=== PATIENT | female | born 1990 | race Caucasian/White ===

== ENCOUNTER 2023-10-27 22:23 | Emergency (ER) | payer OTHER, SELFPAY ==
[2023-10-27 22:32] VITALS: BP 125/80; PULSE 82; RESP 18; TEMP 37.2; O2SAT 96; BMI 56.5
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
--- NOTE | 2023-10-27 23:27 | CT_ITS ---
The [place] [id number] Patient Name: PABLO PEREZ MRN: [id number] date: 1990 Sex: F Assigned Patient Location: ER Current Patient Location: ER Accession/Order Number: [id number] Exam Date: 10/27/2023 23:38 Report Date: 10/28/2023 00:18 At the request of: MARIAM ALFARO Procedure: CT head/brain wo con NONCONTRAST CT SCAN OF THE HEAD HISTORY: Headache. TECHNIQUE: Multiple axial images are taken from the level the vertex down to the base of the skull without the use of IV contrast. Images were then reconstructed in the sagittal and coronal planes. This exam was performed according to our departmental dose-optimization program which includes use of Automated Exposure Control, adjustment of the mA and/or kV according to patient size and/or use of iterative reconstruction technique. COMPARISON: None. FINDINGS: Brain Parenchyma: No intracranial mass. No intracranial hemorrhage. Vázquez-white matter within expected limits of normal for patient's age. Posterior fossa: Normal. Midline shift: None Extra-axial fluid collection: None Ventricles: Normal. Mastoid air cells: Normal. Sinuses: Normal. Cranium: No depressed skull fracture. Soft tissues: Normal. Orbits: Normal. CT/CT head/brain wo con IMPRESSION: 1. No noncontrast CT evidence for acute intracranial pathology. 2. If patient continues to have symptoms or if there remains any further clinical concern, MRI may help better delineate if clinically indicated. Electronically authenticated by: VALDEMAR HINDS Date: 10/28/2023 00:18
--- NOTE | 2023-10-27 23:27 | CT_ITS ---
The [address] [address] Patient Name: PABLO PEREZ MRN: [id number] date: 1990 Sex: F Assigned Patient Location: ER Current Patient Location: ER Accession/Order Number: [id number] Exam Date: 10/27/2023 23:38 Report Date: 10/28/2023 00:04 At the request of: MARIAM ALFARO Procedure: CT cervical spine wo con EXAM: CT cervical spine wo con HISTORY: injury COMPARISON: None. TECHNIQUE: Axial images of the cervical spine were obtained. Sagittal and coronal reformations were provided. Dose reduction techniques were achieved by using automated exposure control and/or adjustment of mA and/or kV according to patient size and/or use of iterative reconstruction technique COMMENT: The lack of intradural contrast and streak artifact from bone about the vertebral column limit evaluation for disc protrusion, bulge and the spinal canal in general. FINDINGS: There is loss of the normal lordosis and straightening of the cervical vertebral column. No CT evidence of an acute fracture, subluxation or significant loss of vertebral body height. No significant loss of disc space, endplate osteophyte formation or malalignment at the craniocervical junction. While assessment of the spinal canal is again suboptimal on this noncontrast CT, no obvious disc protrusion, significant disc bulging or convincing region of high-grade spinal canal stenosis. The neural foramina appear patent. CT/CT cervical spine wo con IMPRESSION: 1. No CT evidence of an acute fracture involving the cervical vertebral column. 2. If there is further clinical indication to evaluate the spinal canal, cord or for ligamentous injury consider MRI as it would be more sensitive. Electronically authenticated by: JUAN C COYLE Date: 10/28/2023 00:04
== END 2023-10-28 01:00 | disposition home or self-care (01) ==
PROVIDERS: Emergency Provider Internal Medicine
DX: S06.0X0A Concussion without loss of consciousness, initial encounter (principal); V49.9XXA Car occupant (driver) (passenger) injured in unspecified traffic accident, initial encounter; Z79.899 Other long term (current) drug therapy; Z79.890 Hormone replacement therapy; Z87.891 Personal history of nicotine dependence
CPT/HCPCS: 70450; 72125; 99284

== ENCOUNTER 2023-11-23 21:36 | Emergency (ER) | payer OTHER, SELFPAY ==
[2023-11-23 21:40] VITALS: BP 128/86; PULSE 96; RESP 18; TEMP 36.8; O2SAT 98; BMI 62.4
--- OUTSIDE RECORDS SUMMARY | 2023-11-23 21:42 | XMS_ITS | CCD ---
Author Name Unknown Address [address] [facility] [address] [place] [id number] Organization [facility] Care Team Providers Care Health Care / Medical Job Titles Name Role Phone George Gomez Primary Care Provider Unavailjose GREEN, DR SHELLY Rae Primary Care Unavailable OLIVIA DEAN Attending Unavailable MELINA, DR LAY Consulting Unavailable OLIVIA DEAN Admitting Unavailable PETER, DR SHELLY Rae Primary Care Unavailable PAY, DR IRIZARRY Attending Unavailable PAY, DR IRIZARRY Admitting Unavailable KARL KUMAR Consulting Unavailable PETER, DR SHELLY Rae Primary Care Unavailable PETER, DR SHELLY Rae Consulting Unavailable PETER, DR SHELLY Rae Attending Unavailable PETER, DR SHELLY Rae Admitting Unavailable PETER, DR SHELLY Rae Primary Care Unavailable MARIAM ALFARO Attending Unavailable MARIAM ALFARO Admitting Unavailable MARIAM ALFARO Consulting Unavailable Kael Chan Attending Unavailable Kael Chan Attending Unavailable Unavailable Unavailable Unavailable Allergies Allergy Classification Reported Allergen(s) Allergy Type Date of Onset Reaction(s) Facility (1 source) traMADol Drug Allergy 0 [facility] Repository (1 source) No Known Medication Allergies; Translations: [No Known Medication Allergies] Propensity to adverse reactions (disorder) [facility] Repository Medications Current Medications Medication Drug Class(es) Dates Sig (Normalized) Sig (Original) amoxicillin 500 mg oral tablet (1 source) Penicillin-class Antibacterial Start: 10-25-2019 take 500 mg by mouth three times daily Amoxicillin Active 500 MG Oral Three times daily October 25, 2019 8:07pm buprenorphine 8 mg / naloxone 2 mg oral strip (1 source) Partial Opioid Agonist, Opioid Antagonist Start: 10-25-2019 Buprenorphine-Nalo xone Active 2 FILM Sublingual Daily October 25, 2019 7:49pm cobamamide 0.1 mg / vitamin b 12 5 mg sublingual tablet (1 source) Vitamin B12 Start: 10-25-2019 take 1 tablet under the tongue once daily Cyanocobalamin-Cob amamide Active 1 TAB Sublingual Daily October 25, 2019 7:49pm gabapentin 800 mg oral tablet (1 source) Anti-epileptic Agent Start: 10-25-2019 take 800 mg by mouth three times daily Gabapentin Active 800 MG Oral Three times daily October 25, 2019 7:49pm ibuprofen 800 mg oral tablet (1 source) Nonsteroidal Anti-inflammatory Drug Start: 10-25-2019 take 800 mg by mouth three times daily Ibuprofen Active 800 MG Oral Three times daily October 25, 2019 8:07pm levothyroxine sodium 0.1 mg oral tablet (1 source) l-Thyroxine Start: 10-25-2019 take 100 ug by mouth once daily Levothyroxine Active 100 MCG Oral Daily October 25, 2019 7:49pm meloxicam 15 mg oral tablet (1 source) Nonsteroidal Anti-inflammatory Drug Start: 10-25-2019 take 15 mg by mouth once daily Meloxicam Active 15 MG Oral Daily October 25, 2019 7:49pm 24 hr venlafaxine 75 mg extended release oral capsule (1 source) Serotonin and Norepinephrine Reuptake Inhibitor Start: 10-25-2019 take 75 mg by mouth once daily Venlafaxine Active 75 MG Oral Daily October 25, 2019 7:49pm Problems Active Problems Problem Classification Problem Date Documented Da te Episodic/Chronic Deficiency and other anemia (1 source) Other vitamin B12 deficiency anemias; Translations: [OT VITAMIN B12 DEFICIENCY ANEMIAS] Onset: 11-19-2022 Episodic Headache; including migraine (4 sources) Headache; including migraine; Translations: [HEADACHE UNSPECIFIED] Onset: 12-18-2021 Influenza (1 source) Influenza due to other identified influenza virus with unspecified type of pneumonia; Translations: [FLU D/T OT ID FLU VIR UNS TYPE PN] Onset: 11-19-2022 Episodic Other nervous system disorders (1 source) Hereditary and idiopathic neuropathy, unspecified; Translations: [HEREDITARY IDIOPATH NEUROPATHY UNS] Onset: 11-19-2022 Chronic Other nervous system disorders (1 source) Other chronic pain; Translations: [OTHER CHRONIC PAIN] Onset: 05-29-2022 Chronic Other nutritional; endocrine; and metabolic disorders (1 source) Morbid (severe) obesity due to excess calories; Translations: [MORBID SEVERE OBES D/T EXCESS ABY] Onset: 12-20-2021 Chronic Other nutritional; endocrine; and metabolic disorders (1 source) Body mass index (BMI) 50.0-59.9, adult; Translations: [BODY MASS INDEX BMI 50.0-59.9 ADULT] Onset: 12-20-2021 Chronic Thyroid disorders (5 sources) Hypothyroidism, unspecified; Translations: [HYPOTHYROIDISM UNSPECIFIED] Onset: 05-29-2022 Chronic Unclassified (4 sources) CONTACT W/AND (SUSP) EXPOS COVID-19; Translations: [CONTACT W/AND (SUSP) EXPOS COVID-19] Onset: 12-20-2021 Unclassified (1 source) PERSONAL HISTORY OF COVID-19; Translations: [PERSONAL HISTORY OF COVID-19] Onset: 06-05-2022 Viral infection (2 sources) COVID-19; Translations: [Disease caused by 2019-nCoV] Onset: 05-29-2022 Past or Other Problems Problem Classification Problem Date Documented Da te Episodic/Chronic Other aftercare (1 source) Other residential (current) drug therapy; Translations: [OTH DETENTION CURRENT DRUG THERAPY] Onset: 05-29-2022 Episodic Other non-traumatic joint disorders (1 source) Pain in right shoulder; Translations: [PAIN IN RIGHT SHOULDER] Onset: 12-20-2021 Episodic Other upper respiratory infections (4 sources) Acute pharyngitis, unspecified; Translations: [Acute upper respiratory infection, unspecified] Onset: 12-20-2021 Episodic Otitis media and related conditions (1 source) Otitis media; Translations: [Recurrent otitis media] Episodic Unclassified (1 source) CONTACT W/AND (SUSP) EXPOS COVID-19; Translations: [CONTACT W/AND (SUSP) EXPOS COVID-19] Onset: 06-01-2022 Results Test Name Value Interpretation Reference Range Facility [facility] 03-29-2023 Lab Reports [id number] AD#[id number]:[id number] Normal [facility] CBC AUTO DIFFon 11-17-2022 BASO # 0.1 103/ul Normal 0.0-0.1 [facility] Comment on above: Performed By: #### C BC #### [facility] [address] [place] [address] Dr. Detla Flynn Basophils/100 WBC (Bld) 1.1 % Normal 0.2-2.0 [facility] Comment on above: Performed By: #### C BC #### [facility] [address] [place] [address] Dr. Delta Flynn EO # 0.6 103/ul Normal 0.0-0.7 [facility] Comment on above: Performed By: #### C BC #### [facility] [address] [place] [address] Dr. Delta Flynn Eosinophils/100 WBC (Bld) 8.8 % Critically high 0.9-7.0 [facility] Comment on above: Performed By: #### C BC #### [facility] [address] [place] [address] Dr. Delta Flynn Erythrocyte distribution width (RBC) [Ratio] 14.0 % Normal 11.0-15.0 [facility] Comment on above: Performed By: #### C BC #### [facility] [address] [place] [address] Dr. Delta Flynn Hematocrit (Bld) [Volume fraction] 37.3 % Normal 36.0-48.0 [facility] Comment on above: Performed By: #### C BC #### [facility] [address] [place] [address] Dr. Delta Flynn Hemoglobin (Bld) [Mass/Vol] 13.1 g/dL Normal 12.0-16.0 [facility] Comment on above: Performed By: #### C BC #### [facility] [address] [place] [address] Dr. Delta Flynn IG # 0.01 10e3/ul Normal 0.00-0.03 [facility] Comment on above: Performed By: #### C BC #### [facility] [address] [place] [address] Dr. Delta Flynn IG % 0.1 % Normal 0.0-0.5 [facility] Comment on above: Performed By: #### C BC #### [facility] [address] [place] [address] Dr. Delta Flynn LYMPH # 2.9 103/ul Normal 1.2-3.8 [facility] Comment on above: Performed By: #### C BC #### [facility] [address] [place] [address] Dr. Delta Flynn Lymphocytes/100 WBC (Bld) 40.5 % Normal 20.5-60.0 [facility] Comment on above: Performed By: #### C BC #### [facility] [address] [place] [address] Dr. Delta Flynn MANUAL DIFF REQ NO Normal [facility] Comment on above: Performed By: #### C BC #### [facility] [address] [place] [address] Dr. Delta Flynn MCH (RBC) [Entitic mass] 27.4 pg Normal 26.7-34.0 [facility] Comment on above: Performed By: #### C BC #### [facility] [address] [place] [address] Dr. Delta Flynn MCHC (RBC) [Mass/Vol] 35.1 g/dL Normal 29.9-35.2 [facility] Comment on above: Performed By: #### C BC #### [facility] [address] [place] [address] Dr. Delta Flynn MCV (RBC) [Entitic vol] 78.0 fL Critically low 81.0-99.0 [facility] Comment on above: Performed By: #### C BC #### [facility] [address] [place] [address] Dr. Delta Flynn MONO # 0.5 103/ul Normal 0.3-0.8 [facility] Comment on above: Performed By: #### C BC #### [facility] [address] [place] [address] Dr. Delta Flynn Monocytes/100 WBC (Bld) 7.0 % Normal 1.7-12.0 [facility] Comment on above: Performed By: #### C BC #### [facility] [address] [place] [address] Dr. Delta Flynn NEUT # 3.0 103/ul Normal 1.4-6.5 [facility] Comment on above: Performed By: #### C BC #### [facility] [address] [place] [address] Dr. Delta Flynn Neutrophils/100 WBC (Bld) 42.5 % Critically low 43.0-75.0 [facility] Comment on above: Performed By: #### C BC #### [facility] [address] [place] [address] Dr. Delta Flynn Platelet mean volume (Bld) [Entitic vol] 8.8 fL Critically low 9.5-13.5 [facility] Comment on above: Performed By: #### C BC #### [facility] [address] [place] [address] Dr. Delta Flynn PLT 323 103/ul Normal 150-450 [facility] Comment on above: Performed By: #### C BC #### [facility] [address] [place] [address] Dr. Delta Flynn RBC 4.78 106/ul Normal 4.20-5.40 [facility] Comment on above: Performed By: #### C BC #### [facility] [address] [place] [address] Dr. Delta Flynn WBC 7.0 103/ul Normal 4.0-11.0 [facility] Comment on above: Performed By: #### C BC #### [facility] [address] [place] [address] Dr. Delta Flynn FREE T3on 11-17-2022 FREE T3 3.03 pg/mlL Normal 2.18-3.98 [facility] Comment on above: Performed By: #### T SH, FT3, CMP #### [facility] [address] [place] [address] Dr. Delta Flynn FREE T4on 11-17-2022 Free T4 [Mass/Vol] 1.27 ng/dL Normal 0.76-1.46 [facility] Comment on above: Performed By: #### F T4 #### [facility] [address] [place] [address] Dr. Delta Flynn PROF 14(COMP METB)on 023 Albumin [Mass/Vol] 3.3 g/dL Critically low 3.4-5.0 [facility] Comment on above: Performed By: #### T SAI, FT3, CMP #### [facility] [address] [address] [address] Dleta Flynn Albumin/Globulin [Mass ratio] 0.8 {ratio} Normal [facility] Comment on above: Performed By: #### T SAI, FT3, CMP #### [facility] [address] [address] [address] Delta Flynn ALP [Catalytic activity/Vol] 77 U/L Normal 46-116 [facility] Comment on above: Performed By: #### T SAI, FT3, CMP #### [facility] [address] [address] [address] Delta Flynn ALT [Catalytic activity/Vol] 35 U/L Normal 14-59 [facility] Comment on above: Performed By: #### T SAI, FT3, CMP #### [facility] [address] [address] [address] Delta Flynn Anion gap [Moles/Vol] 9.0 mmol/L Normal [facility] Comment on above: Performed By: #### T SAI, FT3, CMP #### [facility] [address] [place] [address] Dr. Delta Flynn AST [Catalytic activity/Vol] 29 U/L Normal 15-37 [facility] Comment on above: Performed By: #### T SAI, FT3, CMP #### [facility] [address] [address] [address] Delta Flynn Bilirubin [Mass/Vol] 0.4 mg/dL Normal 0.2-1.0 [facility] Comment on above: Performed By: #### T SAI, FT3, CMP #### [facility] [address] [address] [address] Delta Flynn Calcium [Mass/Vol] 9.0 mg/dL Normal 8.5-10.1 [facility] Comment on above: Performed By: #### T SH, FT3, CMP #### [facility] [address] [place] [address] Dr. Delta Flynn Chloride [Moles/Vol] 106 mmol/L Normal 98-107 [facility] Comment on above: Performed By: #### T SH, FT3, CMP #### [facility] [address] [place] [address] Dr. Delta Flynn CO2 [Moles/Vol] 31.8 mmol/L Normal 21.0-32.0 [facility] Comment on above: Performed By: #### T SH, FT3, CMP #### [facility] [address] [place] [address] Dr. Delta Flynn Creatinine [Mass/Vol] 0.62 mg/dL Normal 0.55-1.02 [facility] Comment on above: Performed By: #### T SH, FT3, CMP #### [facility] [address] [place] [address] Dr. Delta Flynn EGFR-AF PALESTINIAN 60 mL/min/1.73m2 Normal >=60 [facility] Comment on above: Performed By: #### T SH, FT3, CMP #### [facility] [address] [place] [address] Dr. Delta Flynn EGFR-NON AF PALESTINIAN 60 mL/min/1.73m2 Normal >=60 [facility] Comment on above: Performed By: #### T SH, FT3, CMP #### [facility] [address] [place] [address] Dr. Delta Flynn Globulin (S) [Mass/Vol] 4.0 g/dL Normal [facility] Comment on above: Performed By: #### T SH, FT3, CMP #### [facility] [address] [place] [address] Dr. Delta Flynn Glucose [Mass/Vol] 108 mg/dL Critically high 74-106 [facility] Comment on above: Performed By: #### T SH, FT3, CMP #### [facility] [address] [place] [address] Dr. Delta Flynn Potassium [Moles/Vol] 3.8 mmol/L Normal 3.5-5.1 [facility] Comment on above: Performed By: #### T SAI FT3, CMP #### [facility] [address] [place] [address] Dr. Delta Flynn Protein [Mass/Vol] 7.3 g/dL Normal 6.4-8.2 [facility] Comment on above: Performed By: #### T SAI, FT3, CMP #### [facility] [address] [place] [address] Dr. Delta Flynn Sodium [Moles/Vol] 143 mmol/L Normal 136-145 [facility] Comment on above: Performed By: #### T SAI FT3, CMP #### [facility] [address] [place] [address] Dr. Delta Flynn Urea nitrogen [Mass/Vol] 10.0 mg/dL Normal 7.0-18.0 [facility] Comment on above: Performed By: #### T SAI FT3, CMP #### [facility] [address] [place] [address] Dr. Delta Flynn Urea nitrogen/Creatinin e [Mass ratio] 16.1 mg/mg Normal [facility] Comment on above: Performed By: #### T SAI FT3, CMP #### [facility] [address] [place] [address] Dr. Delta Flynn TSHon 11-17-2022 TSH 1.120 uIU/mL Normal 0.358-3.740 [facility] Comment on above: Performed By: #### T SAI, FT3, CMP #### [facility] [address] [place] [address] Dr. Delta Flynn [facility] 05-15 SARS-CoV-2 (COVID-19) RNA SIMBA+probe Ql (Unsp spec) Not detected Normal NOT DETECTED [facility] Comment on above: Result Comment: When diagnostic testing is negative, the possibility of a false negative should be considered in the context of a patient's recent exposures and the presence of clinical signs and symptoms consistent with SARS-CoV-2. This test is not yet approved or cleared by the [place] FDA. When there are no FDA-approved or cleared tests available, and other criteria are met, FDA can make tests available under an emergency access mechanism called an Emergency Use Authorization (EUA). The EUA for this test is supported by the [place] of Health and Human Service's declaration that circumstances exist to justify the emergency use of in vitro diagnostics for the detection and/or diagnosis of the virus that causes COVID-19. This EUA will remain in effect for the duration of the COVID-19 declaration justifying emergency of IVDs, unless it is terminated or revoked by the FDA (after which the test may no longer be used). Performed By: #### C VDTB #### [facility] [address] [place] [address] Dr. Delta Flynn Covid-19 PCR ([facility])on 05-15 SARS-CoV-2 (COVID-19) RNA SIMBA+probe Ql (Unsp spec) Detected Critically abnormal NOT DETECTED [facility] Comment on above: Result Comment: This test is not yet approved or cleared by the [place] FDA. When there are no FDA-approved or cleared tests available, and other criteria are met, FDA can make tests available under an emergency access mechanism called an Emergency Use Authorization (EUA). The EUA for this test is supported by the [place] Health and Human Service's declaration that circumstances exist to justify the emergency use of in vitro diagnostics for the detection and/or diagnosis of the virus that causes COVID-19. This EUA will remain in effect for the duration of the COVID-19 declaration justifying emergency of IVDs, unless it is terminated or revoked by the FDA (after which the test may no longer be used). Performed By: #### C VDTBH #### [facility] [address] [place] [address] Dr. Delta Flynn Covid-19 PCR ([facility])on SARS-CoV-2 (COVID-19) RNA SIMBA+probe Ql (Unsp spec) Not detected Normal NOT DETECTED [facility] Comment on above: Result Comment: When diagnostic testing is negative, the possibility of a false negative should be considered in the context of a patient's recent exposures and the presence of clinical signs and symptoms consistent with SARS-CoV-2. This test is not yet approved or cleared by the [place] FDA. When there are no FDA-approved or cleared tests available, and other criteria are met, FDA can make tests available under an emergency access mechanism called an Emergency Use Authorization (EUA). The EUA for this test is supported by the [place] Health and Human Service's declaration that circumstances exist to justify the emergency use of in vitro diagnostics for the detection and/or diagnosis of the virus that causes COVID-19. This EUA will remain in effect for the duration of the COVID-19 declaration justifying emergency of IVDs, unless it is terminated or revoked by the FDA (after which the test may no longer be used). Performed By: #### C VDTB #### [facility] [address] [place] [address] Dr. Delta Flynn INFLUENZA A AND B AGon 12-18 [facility] SEE BELOW Normal [facility] Comment on above: Result Comment: Nega tive for Flu A protein angiten. Infection due to Flu A cannot be ruled out. Flu A angiten in the sample may be below the detection limit of the test. Performed By: #### I NFLUAB #### [facility] [address] [place] [address] Dr. [facility] Normal [facility] Comment on above: Result Comment: Nega tive for Flu B protein antigen. Infection due to Flu B cannot be ruled out. Flu B antigen in the sample may be below the detection limit of the test. Performed By: #### I NFLUAB #### [facility] [address] [place] [address] Dr. Delta Flynn INFLUENZA A AG Negative Normal NEGATIVE SEE COMMENT [facility] Comment on above: Performed By: #### I NFLUAB #### [facility] [address] [place] [address] Dr. Delta Flynn INFLUENZA B AG Negative Normal NEGATIVE SEE COMMENT [facility] Comment on above: Performed By: #### I NFLUAB #### [facility] [address] [place] [address] Dr. Delta Flynn INTERNAL CONTROLS Within Normal Limits Normal Within Normal Limits [facility] Comment on above: Performed By: #### I NFLUAB #### [facility] [address] [address] [address] Delta Flynn CNOVon 08-08-2021 CNOV Office Visit (GSPSMN) ---- PABLO PEREZ ([id number]) 1990 F Date Time Provider Department 08/08/21 9:00 AM GILA LOPEZ GSPS[facility] During your visit today, we recorded the following information about you: Gila Lopez PSYD 08/08/2021 9:30 AM Signed [facility] Progress Note 08/08/2021 Billing code: John Patient did not attend, cancel, or reschedule this in person appointment. Gila Lopez Psy.D. Clinical Health Psychologist Referring Provider: GEORGE GOMEZ [[id number]] Allergies As of Date: 08/08/2021 (Not on File) Date Reviewed: 08/08/2021 Reviewed by: Gila Lopez PSYD - Fully Assessed Reason for Visit: No Show [[id number]] Primary Visit Diagnosis:NO SHOW Problem List As Of Date: 08/08/2021 (None) Encounter Status:Closed by GILA LOPEZ on 08/08/21 Normal [facility] Vital Signs Date Time Vital Sign Value Performing Clinician Faci lity 10-25-2019 19:57-0500 BMI (Body Mass Index) 57.9 kg/m2 [facility] 10-25-2019 19:57-0500 Body Temperature 98.1 [degF] [facility] 10-25-2019 19:57-0500 Body weight 157.85 kg [facility] 10-25-2019 19:57-0500 BP Diastolic 90 mm[Hg] [facility] 10-25-2019 19:57-0500 BP Systolic 144 mm[Hg] [facility] 10-25-2019 19:57-0500 Height 165.1 cm [facility] 10-25-2019 19:57-0500 Pulse (Heart Rate) 101 /min [facility] 10-25-2019 19:57-0500 Pulse Oximetry 93 % [facility] 10-25-2019 19:57-0500 Respiratory Rate 24 /min [facility] Encounters Encounter Date Encounter Type Care Provider Facility Start: 04-02-2023 End: 04-03-2023 ambulatory Kael Chan Facility:[facility] Rosaura chacon Start: 02-26-2023 End: 02-27-2023 ambulatory Kael Chan Facility:[facility] Rosaura chacon Start: 11-17-2022 End: 11-18-[address] SHELLY GREEN Facility:[facility] Start: 06-01-2022 End: 06-02-[address] SHELLY GEREN Facility:[facility] Start: 05-27-2022 End: 05-27-[address] SHELLY GREEN Facility:[facility] Start: 12-18-2021 End: 12-18-[address] SHELLY GREEN Facility:[facility] Start: 10-25-2019 End: 10-25-2019 Emergency department patient visit [facility] Plan of Treatment Date Care Activity Detail Author Patient Education Otitis Media (ED) [facility] Patient referral [facility] Payers Date Payer Category Payer Unknown [id number] 2.16.84 [id number] 1990 Unknown [id number] 2.16.84 [id number] 1990 Unknown [id number] 2.16.84 [id number] 1990 Unknown [id number] 2.16.84 [id number] 1990 Unknown [id number] 2.16.8 [id number] 1990 Unknown [id number] 2.16.8 [id number] 1960 Unknown [id number] Self-pay Self Pay [id number] Social History Date Type Detail Facility Start: 10-25-2019 Tobacco smoking stat us [facility] Never smoked tobacco (finding) [facility] Start: 1990 Sex Assigned At Female [facility] Goals Date Patient Goal Desired Activity /State Progress note 08-08-2021 Note Date & Type Note Facility 08-08-2021 Note HNO ID: [id number] Author: China Clark RD Service: ? Author Type: Registered Dietitian Type: Progress Notes Filed: 08/08/2021 1:04 PM Note Text: Patient did not show for nutrition appointment. China Clark MS, RD,GILES RIOJAS [facility] Clinical Note 08-08-2021 Note Date & Type Note Facility 08-08-2021 Note Education (AMANDA) PABLO PEREZ ([id number]) 1990 F Date Time Provider Department 08/08/21 12:30 PM CHINA CLARK Reason for Visit: No Show [1558] Progress Notes: China Clark RD 08/08/2021 1:04 PM Signed Patient did not show for nutrition appointment. China A. Czerwony MS,RD,CSOWM,LD Primary Visit Diagnosis:NO SHOW During your visit today, we recorded the following information about you: Allergies As of Date: 08/08/2021 (Not on File) Date Reviewed: 08/08/2021 Reviewed by: Gila Lopez PSYD - Fully Assessed Prescriptions as of 08/08/2021 - SUBOXONE 8-2 mg film DISSOLVE 1 AND 1/2 films UNDER THE TONGUE EVERY DAY (DISSOLVE slowly, do not chew) - ciprofloxacin HCl (CIPRO) 500 mg tablet Take 500 mg by mouth q 12 HR. - gabapentin (NEURONTIN) 800 mg tablet TAKE 1 TABLET BY MOUTH TWICE DAILY AND TAKE 2 TABLETS AT BEDTIME - hydroCHLOROthiazide (HYDRODIURIL, ESIDRIX) 25 mg tablet Take 25 mg by mouth once daily. - levothyroxine (SYNTHROID) 100 mcg tablet - meloxicam (MOBIC) 15 mg tablet Take 15 mg by mouth once daily. - ondansetron (ZOFRAN) 4 mg tablet Take 8 mg by mouth twice daily. - sulfamethoxazole-trimethoprim (BACTRIM DS,SEPTRA DS) 800-160 mg per tablet Take 1 tablet by mouth q 12 HR. - venlafaxine ER (EFFEXOR XR) 75 mg 24 hr capsule Encounter Status:Closed by CHINA CLARK on 08/08/21 [facility] Progress note 08-08-2021 Note Date & Type Note Facility 08-08-2021 Note HNO ID: [id number] Author: Gila Lopez PSYD Service: ? Author Type: Physician Type: Progress Notes Filed: 08/08/2021 9:30 AM Note Text: [facility] Progress Note 08/08/2021 Billing code: John Patient did not attend, cancel, or reschedule this in person appointment. Gila Lopez Psy.D. Clinical Health Psychologist [facility] Advance Directives No Advanced Directives Records Found Advance Directive Response Recorded Date/ Time Advance Directives No April 15 9 2:41pm Chief Complaint and Reason for Visit Chief Complaint pain both ear; hack ing up green stuff Assessments No Assessments Information Available Summary Purpose Family History No Family History Records FoundNo Family History Records FoundNo Family History Records Found Additional Source Comments INFORMATION SOURCE (unrecogn ized section and content) DATE CREATED AUTHOR 11/21/2021 [facility] DATE CREATED AUTHOR AUTHOR'S ORGANIZ ATION 11/19/2022 [facility] DATE CREATED AUTHOR AUTHOR'S ORGANIZ ATION 04/03/2023 [facility] FOR RECORDS PERTAINING TO PATIENTS WHO ARE OR HAVE BEEN ENROLLED IN A CHEMICAL DEPENDENCY/SUBSTANCEABUSE PROGRAM, SOME INFORMATION MAY BE OMITTED. This clinical summary was aggregated from multiple sources. Caution should be exercised in using it in the provision of clinical care. This summary normalizes information from multiple sources, and as a consequence, information in this document may materially change the coding, format and clinical context of patient data. In addition, data may be omitted in some cases. CLINICAL DECISIONS SHOULD BE BASED ON THE PRIMARY CLINICAL RECORDS. [facility] [employer] provides no warranty or guarantee of the accuracy or completeness of information in this document.
--- NOTE | 2023-11-23 21:55 | ED.GENADUL1 ---
HPI - General Adult General Chief complaint: Recheck/Abnormal Lab/Rx Stated complaint: Medication Refill Time Seen by Provider: 11/23/23 21:44 Source: patient Mode of arrival: walk-in History of Present Illness HPI narrative: 33-year-old female presented because she ran out of her hydrochlorothiazide and gabapentin. She ran out of these 2 days ago. Her family doctor retired and she does not have a new one yet. No fever vomiting or complaints of chest pain. Related Data Home Medications Medication Instructions Recorded Confirmed buprenorphine 8 mg-naloxone 2 mg 1 film buccal TID 10/27/23 10/27/23 sublingual film cyanocobalamin (vitamin B-12) 2,500 mcg PO DAILY 10/27/23 10/27/23 2,500 mcg sublingual tablet gabapentin 800 mg tablet 800 mg PO Q12H 10/27/23 10/27/23 hydrochlorothiazide 25 mg tablet 25 mg PO DAILY 10/27/23 10/27/23 levothyroxine 100 mcg tablet 100 mcg PO DAILY 10/27/23 10/27/23 meloxicam 15 mg tablet 15 mg PO DAILY 10/27/23 10/27/23 venlafaxine 75 mg capsule,extended 75 mg PO DAILY 10/27/23 10/27/23 release 24 hr Previous Rx's Medication Instructions Recorded gabapentin 800 mg tablet 800 mg PO BID 5 days #10 tabs 11/23/23 hydrochlorothiazide 25 mg tablet 25 mg PO DAILY #30 tabs 11/23/23 Allergies Allergy/AdvReac Type Severity Reaction Status Date / Time No Known Drug Allergies Allergy Verified 10/27/23 22:42 Review of Systems ROS Narrative A ten point review of systems is negative except as noted above. PFSH PFSH Social History Smoking status: Former smoker Exam Narrative Exam Narrative: Nurses note and vital signs reviewed and patient is not hypoxic. General: The patient appears well and in no apparent distress. Patient is resting comfortably on cart. Skin: Warm, dry, no pallor noted. There is no rash noted. Head: Normocephalic, atraumatic Eye: Normal conjunctiva, no drainage Ears, Nose, Mouth, and Throat: oral mucosa is moist. Nares patent. Cardiovascular: Regular Rate and Rhythm Respiratory: Patient is in no distress, no accessory muscle use, lungs are clear to auscultation, no wheezing, rales or rhonchi Back: non-tender GI: Obese and nontender Musculoskeletal: The patient has no evidence of calf tenderness, no pitting edema, symmetrical pulses noted bilaterally Neurological: A&O, normal speech Psychiatric: Cooperative Constitutional Vital Signs, click to edit/add: Last Vital Signs Temp 98.3 F 11/23/23 21:40 Pulse 96 H 11/23/23 21:40 Resp 18 11/23/23 21:40 BP 128/86 11/23/23 21:40 Pulse Ox 98 11/23/23 21:40 O2 Del Method Room Air 11/23/23 21:40 Course Vital Signs Vital signs: Vital Signs Temperature 98.3 F 11/23/23 21:40 Pulse Rate 96 H 11/23/23 21:40 Respiratory Rate 18 11/23/23 21:40 Blood Pressure 128/86 11/23/23 21:40 Pulse Oximetry 98 11/23/23 21:40 Oxygen Delivery Method Room Air 11/23/23 21:40 Temperature 98.3 F 11/23/23 21:40 Pulse Rate 96 H 11/23/23 21:40 Respiratory Rate 18 11/23/23 21:40 Blood Pressure 128/86 11/23/23 21:40 Pulse Oximetry 98 11/23/23 21:40 Oxygen Delivery Method Room Air 11/23/23 21:40 Medical Decision Making MDM Narrative Medical decision making narrative: She was given a 30-day prescription for her hydrochlorothiazide and 5-day prescription for gabapentin and was given a list of family doctors with whom she can follow-up. Differential Diagnosis Differential Diagnosis: Medication refill Medical Records Medical records reviewed: Yes I reviewed the patient's medical records Discharge Plan Discharge Chief Complaint: Recheck/Abnormal Lab/Rx Clinical Impression: Encounter for medication refill Patient Disposition: Home, Self-Care Time of Disposition Decision: 21:50 Condition: Good Mode of Transportation: Private Vehicle Prescriptions / Home Meds: New hydrochlorothiazide 25 mg tablet 25 mg PO DAILY Qty: 30 0RF gabapentin 800 mg tablet 800 mg PO BID 5 Days Qty: 10 0RF No Action buprenorphine-naloxone 8-2 mg film 1 film buccal TID gabapentin 800 mg tablet 800 mg PO Q12H venlafaxine 75 mg capsule,extended release 24hr 75 mg PO DAILY cyanocobalamin (vitamin B-12) 2,500 mcg tablet, sublingual 2,500 mcg PO DAILY meloxicam 15 mg tablet 15 mg PO DAILY levothyroxine 100 mcg tablet 100 mcg PO DAILY hydrochlorothiazide 25 mg tablet 25 mg PO DAILY Instructions: Medicine Refill (ED) Stand Alone Forms: Portal Instructions Referrals: Physician,Non-Staff, MD [Primary Care Provider] - 1 week
[2023-11-23 22:03] VITALS: BP 128/86
[2023-11-23] MEDS: HYDROCHLOROTHIAZIDE 25 MG TABLET PO (22:03)
== END 2023-11-23 22:06 | disposition home or self-care (01) ==
PROVIDERS: Emergency Provider Emergency Medicine
DX: Z76.0 Encounter for issue of repeat prescription (principal); Z87.891 Personal history of nicotine dependence; Z79.899 Other long term (current) drug therapy
CPT/HCPCS: 99283

== ENCOUNTER 2024-01-31 14:42 | Emergency (ER) | payer OTHER, SELFPAY ==
[2024-01-31 14:48] VITALS: BP 120/82; PULSE 99; TEMP 36.8; O2SAT 98; BMI 44.1
--- NOTE | 2024-01-31 15:05 | US_ITS ---
The [address] [address] Patient Name: PABLO PEREZ MRN: [id number] date: 1990 Sex: F Assigned Patient Location: ER Current Patient Location: ER Accession/Order Number: [id number] Exam Date: 01/31/2024 15:25 Report Date: 01/31/2024 16:06 At the request of: ROSALINE KUMAR Procedure: US venous doppler LE BI EXAMINATION: US venous doppler LE BI HISTORY: Pain and swelling to bilateral knees COMPARISON: No relevant comparison available. FINDINGS: REGION: Bilateral lower extremities THROMBI: None. COMPRESSIBILITY: Normal compressibility. FLOW: Normal waveform and antegrade flow between 5 and 20 cm/s. OTHER: None. US/US venous doppler LE BI IMPRESSION: 1. No deep vein thrombus within the right or left lower extremity. Electronically authenticated by: YEFRI COLINDRES Date: 01/31/2024 16:06
--- NOTE | 2024-01-31 15:06 | ED.EXTPRO1 ---
HPI - Extremity Problem General Chief complaint: Extremity Problem, Nontraumatic Stated complaint: LOWER EXTREMITY PAIN Time Seen by Provider: 01/31/24 14:47 Source: patient Mode of arrival: Wheelchair Limitations: no limitations History of Present Illness HPI Narrative: Patient is a 33-year-old female with a history of peripheral neuropathy, morbid obesity who presents to the ER for increasing pain and burning to the bilateral feet, she states her feet feel swollen from the feet to the knees bilaterally. She denies any falls or injuries. She takes gabapentin and Suboxone at home for her peripheral neuropathy. She states the pain increases with walking and she has been working on her feet a lot more recently. She is not concerned for . There has not been any noted redness, wounds or drainage. Related Data Home Medications ?Medication ?Instructions ?Recorded ?Confirmed buprenorphine 8 mg-naloxone 2 mg 1 film buccal TID 10/27/23 01/31/24 sublingual film cyanocobalamin (vitamin B-12) 2,500 mcg PO DAILY 10/27/23 01/31/24 2,500 mcg sublingual tablet gabapentin 800 mg tablet 800 mg PO Q12H 10/27/23 01/31/24 levothyroxine 100 mcg tablet 100 mcg PO DAILY 10/27/23 01/31/24 venlafaxine 75 mg tablet 75 mg PO DAILY 01/31/24 01/31/24 Previous Rx's ?Medication ?Instructions ?Recorded gabapentin 800 mg tablet 800 mg PO BID 5 days #10 tabs 11/23/23 hydrochlorothiazide 25 mg tablet 25 mg PO DAILY #30 tabs 11/23/23 ketorolac 10 mg tablet 10 mg PO TID PRN pain #10 tabs 01/31/24 methocarbamol 750 mg tablet 750 mg PO TID PRN pain #20 tabs 01/31/24 Allergies Allergy/AdvReac Type Severity Reaction Status Date / Time No Known Drug Allergies Allergy Verified 10/27/23 22:42 Review of Systems ROS Constitutional Denies: fever or chills Ears, nose, mouth, and throat Denies: throat pain or nasal congestion Respiratory Denies: shortness of breath Gastrointestinal Denies: nausea or vomiting Musculoskeletal Reports: extremity pain; Denies: back pain Integumentary/Breast Denies: rash Neurological Denies: headache or numbness in extremities Hematologic/Lymphatic Denies: easy bruising or easy bleeding PFSH PFSH Social History Smoking status: Former smoker Exam Narrative Exam Narrative: Gen.: Awake, alert, in no distress Head: Normocephalic, atraumatic ENT: Moist mucous membranes Respiratory: No respiratory distress Extremities: Patient observed ambulating from the bathroom with no limp or difficulty. Diffuse tenderness of the bilateral feet with no appreciable swelling, redness or drainage. Bilateral calves are obese, no pitting edema noted. No redness or firmness of the calves. Psych: Normal mood and affect Neuro: No focal neuro deficit Skin: Warm, dry, intact Constitutional Vital Signs, click to edit/add: Last Vital Signs Temp 98.2 F 01/31/24 14:48 Pulse 99 H 01/31/24 14:48 Resp 18 01/31/24 14:48 BP 120/82 01/31/24 14:48 Pulse Ox 98 01/31/24 14:48 O2 Del Method Room Air 01/31/24 14:48 Course Vital Signs Vital signs: Vital Signs Temperature 98.2 F 01/31/24 14:48 Pulse Rate 99 H 01/31/24 14:48 Respiratory Rate 18 01/31/24 14:48 Blood Pressure 120/82 01/31/24 14:48 Pulse Oximetry 98 01/31/24 14:48 Oxygen Delivery Method Room Air 01/31/24 14:48 Temperature 98.2 F 01/31/24 14:48 Pulse Rate 99 H 01/31/24 14:48 Respiratory Rate 18 01/31/24 14:48 Blood Pressure 120/82 01/31/24 14:48 Pulse Oximetry 98 01/31/24 14:48 Oxygen Delivery Method Room Air 01/31/24 14:48 MDM - Extremity (Nontraumatic) MDM Narrative Medical decision making narrative: Lab studies are unremarkable, CRP and sed rates are mildly elevated with no leukocytosis or abnormal electrolytes. Ultrasound of the bilateral lower extremities is unremarkable and the patient is started on Toradol and Robaxin for home. Elevate the legs, follow-up with PCP for further evaluation and treatment and return to the ER if symptoms change or worsen.At this time, the patient has no redness, wounds or evidence of infection to the lower extremities. Medical Records Attestation: I reviewed the patient's medical records. Lab Data Attestation: I reviewed the patient's lab results. Labs: Lab Results 01/31/24 Range/Units 15:20 WBC 7.6 (4.0-11.0) 10^3/uL RBC 4.57 (4.20-5.40) 10^6/uL Hgb 12.9 (12.0-16.0) g/dL Hct 40.6 (36.0-48.0) % MCV 88.8 (81.0-99.0) fL MCH 28.2 (26.7-34.0) pg MCHC 31.8 (29.9-35.2) g/dL RDW 14.4 (11.0-15.0) % Plt Count 348 (150-450) 10^3/uL MPV 9.4 L (9.5-13.5) fL Neut % (Auto) 64.5 (43.0-75.0) % Lymph % (Auto) 25.2 (20.5-60.0) % [place] % (Auto) 6.9 (1.7-12.0) % Eos % (Auto) 2.2 (0.9-7.0) % Baso % (Auto) 0.9 (0.2-2.0) % Neut # (Auto) 4.9 (1.4-6.5) 10^3/uL Lymph # (Auto) 1.9 (1.2-3.8) 10^3/uL [place] # (Auto) 0.5 (0.3-0.8) 10^3/uL Eos # (Auto) 0.2 (0.0-0.7) 10^3/uL Baso # (Auto) 0.1 (0.0-0.1) 10^3/uL Abs Immat Gran (auto) 0.02 (0.00-0.03) 10^3/uL Imm/Tot Granulo (auto) 0.3 (0.0-0.5) % ESR 49 H (<=20) mm/hr Sodium 142 (136-145) mmol/L Potassium 3.6 (3.5-5.1) mmol/L Chloride 104 (98-107) mmol/L Carbon Dioxide 32.0 (21.0-32.0) mmol/L Anion Gap 9.6 BUN 7.0 (7.0-18.0) mg/dL Creatinine 0.66 (0.55-1.02) mg/dL Est GFR ( Amer) >60 (>=60) Est GFR (Non-Af Amer) >60 (>=60) BUN/Creatinine Ratio 10.6 Glucose 114 H (74-106) mg/dL Calcium 9.1 (8.5-10.1) mg/dL C-Reactive Protein 2.90 H (<=0.50) mg/dL Serum HCG, Qual Negative (NEGATIVE) Imaging Data Venous US: Attestation: I have reviewed the pertinent imaging results. Radiologist's impression: ITS Impressions Venous Doppler Study 01/31/24 15:05 IMPRESSION: 1. No deep vein thrombus within the right or left lower extremity. Electronically authenticated by: YEFRI COLINDRES Date: 01/31/2024 16:06 Discharge Plan Discharge Stand Alone Forms: Portal Instructions Chief Complaint: Extremity Problem, Nontraumatic Clinical Impression: Peripheral neuropathy Patient Disposition: Home, Self-Care Time of Disposition Decision: 16:16 Condition: Good Prescriptions / Home Meds: New ketorolac 10 mg tablet 10 mg PO TID PRN (Reason: pain) Qty: 10 0RF methocarbamol 750 mg tablet 750 mg PO TID PRN (Reason: pain) Qty: 20 0RF No Action buprenorphine-naloxone 8-2 mg film 1 film buccal TID gabapentin 800 mg tablet 800 mg PO Q12H cyanocobalamin (vitamin B-12) 2,500 mcg tablet, sublingual 2,500 mcg PO DAILY levothyroxine 100 mcg tablet 100 mcg PO DAILY hydrochlorothiazide 25 mg tablet 25 mg PO DAILY Qty: 30 0RF gabapentin 800 mg tablet 800 mg PO BID 5 Days Qty: 10 0RF venlafaxine 75 mg tablet 75 mg PO DAILY Print Language: Citizen [place] Instructions: Peripheral Neuropathy (ED) Referrals: Physician,Non-Staff, MD [Primary Care Provider] - 1 week Discharge Date/Time: 01/31/24 16:36
[2024-01-31 15:31] LABS: Basophils Absolute Auto 0.1 10^3/uL (0.0-0.1); Basophils Percent Auto 0.9 % (0.2-2.0); Eosinophils Absolute Auto 0.2 10^3/uL (0.0-0.7); Eosinophils Percent Auto 2.2 % (0.9-7.0); Hematocrit 40.6 % (36.0-48.0); Hemoglobin 12.9 g/dL (12.0-16.0); Immature Granulocytes Abs Auto 0.02 10^3/uL (0.00-0.03); Immature Granulocytes Pct Auto 0.3 % (0.0-0.5); Lymphocytes Absolute Auto 1.9 10^3/uL (1.2-3.8); Lymphocytes Percent Auto 25.2 % (20.5-60.0); Mean Corpuscular HGB Conc 31.8 g/dL (29.9-35.2); Mean Corpuscular Hemoglobin 28.2 pg (26.7-34.0); Mean Corpuscular Volume 88.8 fL (81.0-99.0); Mean Platelet Volume 9.4 fL (9.5-13.5); Monocytes Absolute Auto 0.5 10^3/uL (0.3-0.8); Monocytes Percent Auto 6.9 % (1.7-12.0); Neutrophils Absolute Auto 4.9 10^3/uL (1.4-6.5); Neutrophils Percent Auto 64.5 % (43.0-75.0); Platelet Count 348 10^3/uL (150-450); Red Blood Count 4.57 10^6/uL (4.20-5.40); Red Cell Distribution Width 14.4 % (11.0-15.0); White Blood Count 7.6 10^3/uL (4.0-11.0)
[2024-01-31 15:39] LABS: Erythrocyte Sedimentation Rate 49 mm/hr (<=20)
[2024-01-31 15:42] LABS: Anion Gap 9.6; BUN Creatinine Ratio 10.6; Calcium 9.1 mg/dL (8.5-10.1); Chloride 104 mmol/L (98-107); Estimated GFR (African America >60 (>=60); Estimated GFR (Non-African Ame >60 (>=60); Glucose 114 mg/dL (74-106); Potassium 3.6 mmol/L (3.5-5.1); Sodium 142 mmol/L (136-145)
[2024-01-31 16:12] LABS: HCG Qualitative NEGATIVE (NEGATIVE)
[2024-01-31] MEDS: KETOROLAC TROMETHAMINE 10 MG TABLET PO (16:24)
== END 2024-01-31 16:36 | disposition home or self-care (01) ==
PROVIDERS: Physician Assistant; Emergency Provider Emergency Medicine
DX: G62.9 Polyneuropathy, unspecified (principal); E66.01 Morbid (severe) obesity due to excess calories; Z79.899 Other long term (current) drug therapy; Z79.890 Hormone replacement therapy; Z87.891 Personal history of nicotine dependence; Z68.41 Body mass index [BMI] 40.0-44.9, adult
CPT/HCPCS: 36415; 80048; 84703; 85025; 85652; 86140; 93970; 99284

== ENCOUNTER 2024-08-26 01:04 | Emergency (ER) | payer OTHER, SELFPAY ==
[2024-08-26 01:08] VITALS: BP 155/94; PULSE 98; TEMP 37.3; O2SAT 96; BMI 54.8
--- OUTSIDE RECORDS SUMMARY | 2024-08-26 01:17 | XMS_ITS | CCD ---
Author Organization [facility] Care Team Providers Care Dissolver Operator Name Role Phone George Gomez Primary Care Provider Unavailjose VÁZQUEZ, DR SHELLY Rae Primary Care Unavailable OLIVIA DEAN Attending Unavailable MELINA, DR LAY Consulting Unavailable OLIVIA DEAN Admitting Unavailable KATHIE, DR SHELLY Rae Primary Care Unavailable PAY, DR IRIZARRY Attending Unavailable PAY, DR IRIZARRY Admitting Unavailable GRECHNY, KARL WAGGONER Consulting Unavailable VÁZQUEZ, DR SHELLY Rae Primary Care Unavailable VÁZQUEZ, DR SHELLY Rae Consulting Unavailable VÁZQUEZ, DR SHELLY Rae Attending Unavailable VÁZQUEZ, DR SHELLY Rae Admitting Unavailable VÁZQUEZ, DR SHELLY Rae Primary Care Unavailable MARIAM ALFARO Attending Unavailable MARIAM ALFARO Admitting Unavailable MARIAM ALFARO Consulting Unavailable Kael Chan Primary Care Physician [phone] ANN MARIE ROBLERO Primary Care Physician [phone] OSBALDO, ANN MARIE A Attending Unavailable OSBALDO, ANN MARIE A Admitting Unavailable OSBALDO, ANN MARIE A Admitting Unavailable OSBALDO, ANN MARIE A Attending Unavailable OSBALDO, ANN MARIE A Attending Unavailable OSBALDO, ANN MARIE A Attending Unavailable OSBALDO, ANN MARIE A Attending Unavailable OSBALDO, ANN MARIE A Admitting Unavailable OSBALDO, ANN MARIE A Admitting Unavailable OSBALDO, ANN MARIE A Attending Unavailable OSBALDO, ANN MARIE A Attending Unavailable OSBALDO, ANN MARIE A Admitting Unavailable OSBALDO, ANN MARIE A Attending Unavailable Kael Chan Attending Unavailable OSBALDO, ANN MARIE A Attending Unavailable OSBALDO, ANN MARIE A Attending Unavailable OSBALDO, ANN MARIE A Admitting Unavailable OSBALDO, ANN MARIE A Attending Unavailable OSBALDO, ANN MARIE A Admitting Unavailable OSBALDO, ANN MARIE A Attending Unavailable Unavailable Unavailable Unavailable Allergies Allergy Classification Reported Allergen(s) Allergy Type Date of Onset Reaction(s) Facility (1 source) traMADol Drug Allergy 0 [facility] Repository (3 sources) No Known Medication Allergies; Translations: [No Known Medication Allergies] Propensity to adverse reactions (disorder) [facility] Repository Medications Current Medications Medication Drug Class(es) Dates Sig (Normalized) Sig (Original) amoxicillin 500 mg oral tablet (1 source) Penicillin-class Antibacterial Start: 10-25-2019 take 500 mg by mouth three times daily Amoxicillin Active 500 MG Oral Three times daily October 25, 2019 8:07pm cobamamide 0.1 mg / vitamin b 12 5 mg sublingual tablet (1 source) Vitamin B12 Start: 10-25-2019 take 1 tablet under the tongue once daily Cyanocobalamin-Co bamamide Active 1 TAB Sublingual Daily October 25, 2019 7:49pm gabapentin 800 mg oral tablet (6 sources) Anti-epileptic Agent Start: 02-23-2023 take 1 tablet by mouth once daily in the morning, then take 2 tablets by mouth at bedtime gabapentin 800 mg Tab See Instructions, Take one orally every morning and afternoon and 2 at bedtime, Refills(s) 0 Start Date: 02/23/23 Status: Ordered Start: 10-25-2019 take 800 mg by mouth three times daily Gabapentin Active 800 MG Oral Three times daily October 25, 2019 7:49pm hydroCHLOROthiazide 25 mg oral tablet (5 sources) Thiazide Diuretic Start: 05-02-2024 hydrochlorothiazide 25 mg Tab 12.5 mg = 0.5 tab(s), Oral, Daily, # 135 tab(s), Refills(s) 1, Pharmacy: [facility], 161.7, cm, 05/02/24 10:56:00 EDT, Height/Length Dosing, 156, kg, 05/02/24 10:56:00 EDT, Weight Dosing Start Date: 05/02/24 Status: Ordered Start: 02-23-2023 take 1 tablet by jona th once daily hydrochlorothiazide 25 mg Tab 25 mg = 1 tab(s), Oral, Daily, Refills(s) 0 Start Date: 02/23/23 Status: Ordered ibuprofen 800 mg oral tablet (1 source) Nonsteroidal Anti-inflammatory Drug Start: 10-25-2019 take 800 mg by mouth three times daily Ibuprofen Active 800 MG Oral Three times daily October 25, 2019 8:07pm levothyroxine sodium 0.1 mg oral tablet (6 sources) l-Thyroxine Start: 02-23-2023 take 1 tablet by mouth once daily levothyroxine 100 mcg (0.1 mg) Tab 100 mcg = 1 tab(s), Oral, Daily, Refills(s) 0 Start Date: 02/23/23 Status: Ordered Start: 10-25-2019 take 100 ug by mouth once daily Levothyroxine Active 100 MCG Oral Daily October 25, 2019 7:49pm meloxicam 15 mg oral tablet (1 source) Nonsteroidal Anti-inflammatory Drug Start: 10-25-2019 take 15 mg by mouth once daily Meloxicam Active 15 MG Oral Daily October 25, 2019 7:49pm nystatin [id number] unt/ml topical cream (5 sources) Polyene Antifungal Start: 05-02-2024 nystatin To p 100,000 units/g Crm 15 gram Refill(s) 0, 15 gm, 0 Refill(s) Start Date: 05/02/24 Status: Ordered Start: 03-18-2024 nystatin Top 1 00,000 units/g Crm 15 gram 1 juli, Topical, BID, 15 gram, Refill(s) 0, [facility], 161.7, cm, 03/18/24 13:25:00 EDT, Height/Length Dosing, 158, kg, 03/18/24 13:25:00 EDT, Weight Dosing Start Date: 03/18/24 Status: Ordered vitamin b12 2.5 mg sublingual tablet (5 sources) Vitamin B12 Start: 02-23-2023 take 2 tablets under the tongue once daily cyanocobalamin 2500 mcg sublingual tablet See Instructions, Take 2 sublingual daily, Refills(s) 0 Start Date: 02/23/23 Status: Ordered Completed/Discontinued Medications Medication Drug Class(es) Dates Sig (Normalized) Sig (Original) 0.5 ML semaglutide 0.5 MG/ML Auto-Injector [Wegovy] (5 sources) Start: 03-18-2024 Start: 03-18-2024 inject 0.25 mg by mcnulty bcutaneous injection every week Wegovy (0.25 mg dose) subcutaneous solution 0.25 mg, SubCutaneous, qWeek, # 2 mL, Refills(s) 0, Pharmacy: [facility], 161.7, cm, 03/18/24 13:25:00 EDT, Height/Length Dosing, 158, kg, 03/18/24 13:25:00 EDT, Weight Dosing Start Date: 03/18/24 Status: Ordered buprenorphine 8 mg / naloxone 2 mg sublingual film (6 sources) Partial Opioid Agonist, Opioid Antagonist Start: 05-02-2024 buprenorphine-naloxo ne 8 mg-2 mg sublingual film Refill(s) 0, 84 EA, 0 Refill(s), DISSOLVE 1 film under the tongue THREE TIMES DAILY Start Date: 05/02/24 Status: Ordered Start: 03-18-2024 Suboxone 8 mg- 2 mg sublingual film See Instructions, Refill(s) 0, 3 daily dissolved under the tongue Start Date: 03/18/24 Status: Ordered Start: 10-25-2019 Buprenorphine- Naloxone Active 2 FILM Sublingual Daily October 25, 2019 7:49pm potassium chloride 10 meq oral tablet (3 sources) Start: 03-28-2024 take 1 tablet by mouth once daily Potassium Chloride (Eqv-K-Tab) 10 mEq oral tablet, extended release 10 mEq = 1 tab(s), Oral, Daily, # 90 tab(s), Refills(s) 0, Pharmacy: [facility], 161.7, cm, 03/27/24 11:17:00 EDT, Height/Length Dosing, 159.4, kg, 03/27/24 11:17:00 EDT, Weight Dosing Start Date: 03/28/24 Status: Ordered venlafaxine 75 mg oral tablet (3 sources) Serotonin and Norepinephrine Reuptake Inhibitor Start: 05-02-2024 venlafaxine 75 mg Tab 28 EA, 0 Refill(s), TAKE 1 TABLET BY MOUTH DAILY, Refills(s) 0 Start Date: 05/02/24 Status: Ordered Start: 10-25-2019 take 75 mg by mouth once daily Venlafaxine Active 75 MG Oral Daily October 25, 2019 7:49pm Problems Active Problems Problem Classification Problem Date Documented Date Episodic/Chronic Anxiety disorders (5 sources) Anxiety 02-23-2023 Chronic Asthma (5 sources) Mild intermittent asthma 02-26-2023 Chronic Deficiency and other anemia (1 source) Other vitamin B12 deficiency anemias; Translations: [OT VITAMIN B12 DEFICIENCY ANEMIAS] Onset: 11-19-2022 Episodic Deficiency and other anemia (5 sources) Anemia 02-23-2023 Episodic Essential hypertension (5 sources) Hypertensive disorder 02-23-2023 Chronic Headache; including migraine (4 sources) Headache; including migraine; Translations: [HEADACHE UNSPECIFIED] Onset: 12-18-2021 Hepatitis (5 sources) Nonalcoholic steatohepatitis 02-23-2023 Chronic Influenza (1 source) Influenza due to other identified influenza virus with unspecified type of pneumonia; Translations: [FLU D/T OTH ID FLU VIR UNS TYPE PN] Onset: 11-19-2022 Episodic Mood disorders (5 sources) Single episode of major depression in full remission; Translations: [Major depressive disorder, single episode, in full remission] 02-26-2023 Chronic Nutritional deficiencies (5 sources) Cobalamin deficiency 02-23-2023 Episodic Other nervous system disorders (1 source) Hereditary and idiopathic neuropathy, unspecified; Translations: [HEREDITARY IDIOPATH NEUROPATHY UNS] Onset: 11-19-2022 Chronic Other nervous system disorders (1 source) Other chronic pain; Translations: [OTHER CHRONIC PAIN] Onset: 05-29-2022 Chronic Other nervous system disorders (5 sources) Neuropathy 02-23-2023 Chronic Comment on above: hereditary and idiop athic Other nutritional; endocrine; and metabolic disorders (1 source) Morbid (severe) obesity due to excess calories; Translations: [MORBID SEVERE OBES D/T EXCESS ABY] Onset: 12-20-2021 Chronic Other nutritional; endocrine; and metabolic disorders (1 source) Body mass index (BMI) 50.0-59.9, adult; Translations: [BODY MASS INDEX BMI 50.0-59.9 ADULT] Onset: 12-20-2021 Chronic Other nutritional; endocrine; and metabolic disorders (5 sources) Morbid obesity 02-23-2023 Chronic Spondylosis; intervertebral disc disorders; other back problems (5 sources) Degeneration of lumbar intervertebral disc 02-23-2023 Chronic Substance-related disorders (5 sources) Narcotic drug user 02-23-2023 Chronic Thyroid disorders (10 sources) Hypothyroidism, unspecified; Translations: [Hypothyroidism] Onset: 05-29-2022 Chronic Unclassified (4 sources) CONTACT W/AND (SUSP) EXPOS COVID-19; Translations: [CONTACT W/AND (SUSP) EXPOS COVID-19] Onset: 12-20-2021 Unclassified (1 source) PERSONAL HISTORY OF COVID-19; Translations: [PERSONAL HISTORY OF COVID-19] Onset: 06-05-2022 Viral infection (2 sources) COVID-19; Translations: [Disease caused by 2019-nCoV] Onset: 05-29-2022 Past or Other Problems Problem Classification Problem Date Documented Da te Episodic/Chronic Other aftercare (1 source) 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 Had it rechecked at [facility] 03/27/24- Potassium was 3.2 Was advised to cut her HTCZ in 1/2 at [facility] History of Present Illness Patient presents today for HTN & hypokalemia. She reports she is not taking her blood pressure and has not noticed any difference since decreasing the hydrochlorothiazide 25 mg to 1/2 tablet. She reports she has been taking the potassium as ordered. She has no additional concerns today. Review of Systems PHQ Score Initial Depression Screen Score: 0 SCORE Physical Exam Vitals & Measurements HR: 68(Peripheral) RR: 16 BP: 120/80 SpO2: 95% HT: 64 in HT: 161.7 cm WT: 156 kg WT: 343.2 lb BMI: 59.66 General: alert, no acute distress Cardiovascular: regular rate and rhythm, normal peripheral perfusion Respiratory: Lungs CTA, respirations non labored Extremities: no deformity, no trauma Neurological: oriented x 4, LOC appropriate for age speech normal Assessment/Plan 1. Hypertension (I10: Essential (primary) hypertension) Chronic Stable Controlled with hydrochlorothiazide 12.5 mg one tablet po daily Encourage low sodium diet Daily exercise f/u 6 months 2. Hypokalemia (E87.6: Hypokalemia) Potassium level to be drawn today Awaiting results Ordered: Potassium Level 3. Non-smoker (Z78.9: Other specified health status) Encouraged to continue as a non-smoker Ordered: semaglutide, 0.25 mg, SubCutaneous, qWeek, # 2 mL, Refills(s) 0, Pharmacy: [facility], 161.7, cm, 03/18/24 13:25:00 EDT, Height/Length Dosing, 158, kg, 03/18/24 13:25:00 EDT, Weight Dosing 4. BMI 50.0-59.9, adult (Z68.43: Body mass index [BMI] 50.0-59.9, adult) The standard range for ages 18 and older is >=18.5 and < 25 kg/m2. Your BMI today was above this range, this falls in the overweight to obese category and there are medical benefits to weight loss. We can offer counselling, referral, and/or medical support in addressing this problem. Your BMI and weight management will be followed at subsequent visits. 5. Adult-onset obesity (E66.9: Obesity, unspecified) The standard range for ages 18 and older is >=18.5 and < 25 kg/m2. Your BMI today was above this range, this falls in the overweight to obese category and there are medical benefits to weight loss. We can offer counselling, referral, and/or medical support in addressing this problem. Your BMI and weight management will be followed at subsequent visits. Orders: hydrochlorothiazide, 12.5 mg = 0.5 tab(s), Oral, Daily, # 135 tab(s), Refills(s) 1, Pharmacy: [facility], 161.7, cm, 05/02/24 10:56:00 EDT, Height/Length Dosing, 156, kg, 05/02/24 10:56:00 EDT, Weight Dosing nystatin topical, 1 juli, Topical, BID, 15 gram, Refill(s) 0, [facility], 161.7, cm, 03/18/24 13:25:00 EDT, Height/Length Dosing, 158, kg, 03/18/24 13:25:00 EDT, Weight Dosing Sleep Study Baseline Follow-up With When Contact Information ANN MARIE ROBLERO CNP, FAM Within [address] [place] [phone] Business (1) Additional Instructions: HTN Patient Education Potassium Content of Foods Problem List/Past Medical History Ongoing Anemia Anxiety DDD (degenerative disc disease), lumbar Hypertension Hypothyroid Major depressive disorder with single episode, in full remission Mild intermittent asthma without complication STEEL (nonalcoholic steatohepatitis) Neuropathy Obesity, morbid Opiate use Vitamin B12 deficiency Historical No qualifying data Procedure/Surgical History None. Medications buprenorphine-naloxo ne 8 mg-2 mg sublingual film cyanocobalamin 2500 mcg sublingual tablet, See Instructions, Not taking gabapentin 800 mg Tab, See Instructions hydrochlorothiazide 25 mg Tab, 12.5 mg= 0.5 tab(s), Oral, Daily, 1 refills levothyroxine 100 mcg (0.1 mg) Tab, 100 mcg= 1 tab(s), Oral, Daily nystatin Top 100,000 units/g Crm 15 gram Potassium Chloride (Eqv-K-Tab) 10 mEq oral tablet, extended release, 10 mEq= 1 tab(s), Oral, Daily venlafaxine 75 mg Tab Wegovy (0.25 mg dose) subcutaneous solution Allergies No Known Allergies No Known Medication Allergies Social History Alcohol - Denies Alcohol Use, 05/02/2024 Substance Abuse - Denies Substance Abuse, 05/02/2024 Tobacco Never (less than 100 in lifetime) Tobacco Use:. Never Smokeless Tobacco Use:., 05/02/2024 Family History Family history is unknown Immunizations Vaccine Date Status influenza virus vaccine, inactivated 07/29/2020 Recorded hepatitis A adult vaccine 01/09/2019 Recorded Normal Esp[facility] Comment on above: Result Comment: Elec tronically Signed By: ANN MARIE ROBLERO CNP\Date and Time Signed: 05/02/24 11:21 EDT Potassiumon 05-02-2024 Potassium [Moles/Vol] 3.6 mmol/L Normal 3.5-5.3 [facility] Comment on above: Performed By: #### [id number] #### Alexis [facility] [address] [place] [address] Coding Summary.on 04-05-2024 Coding Summary. ZNNMSfxa14PAq1pLo+PG hlYWQ+GE2DQSKcX99alM ThwG4hU3KSVVrYNkrvKI PAFOfIZiEfyyRwFW9gfT NjZXJu IC8+TR5vZHJgDrdrlKRn i8V8gFP6Y55vmp9kNVlj aQZ1OHKgImCdvnttg4ka rYo8NXhpChzdLhBo OKMlvT11GCB0mV61Zh80 vQJihKRcm2sslAh3DmAd MCJbJPZ2dHsnNFfix6Fx FFIzX47ilYQcs1A2 IGNvbGxhcHNlOyBlbXB0 fE3eEWcdwhekw8djtuph Ygl0uj63oQVaz1P8vAJ2 I6ScafS9QYBpaBSx QisncPCSdG4tzhtbh0yn dsimUwKdBUOmSOs8THf2 TQElrHxjHiWrQF06MWN4 EOJyjtIbZ2DwNEAe zKamHcK9h9B8Eb3DQ8MI AjyiQ0SGBKNFPDmpyWK+ QM56cs09Z6NlXkfkVxd0 NBJpHBG6zUJ9lS3v QTYcMKctd3J4aJA7A1Yp foWfec7am9igKDImKHes Q60dpDDia8E3CJJhuLY5 ZEZmuGmvUyZqgP40 Oyc+WBLvyAaty6KqOjzk h2dnr4zelRm4BynmLCCw jkAjnUciQGH1h3EvTh5n HNXvhYI6mQI7bE6g KhRzCpO9VMkoS928QgRy jZLcFhkiZ41cS1TcpUH+ QCCeZbh4LKGazFnyXP5u T1XnJGLzyhkhtMRm zPfvRW1hWPGilsvcSEIp sU7yYTPsE6w4EpIuQhO8 OLfwH6GnVNUoiiunBs10 aS6sKaGtGdZ4VVgk S9AcsyX8CPIrwFWdKDpr QCF0F86wg1G7DGZiECMc CWW8sGF3iZ4qzCxapjzy bGVmdDsgdmVydGlj QJutUOynP322MKWpyYsd PkNvZGluZyBEYXRlOiAg MDYvMjIvMjAyNDwvdGQ+ PZYdZEW5yTvvUAVj mCStZDndYt1qbDebqXvd UE8lKTPrvqocHTZxgQ5y CAFtnPVypRxhKY0lCBTp qasfg986QkUlOGZ7 KLGlwUJvO8LyaB6cGhXw QCXsMWWaQ9AipNVwAHcm J111GEmcSoE8KEJtkfBr I7XdZDSvsPeqHwP5 u9M6Pl4Pi0CbwxukG0Si rVFvHxNvYdsqCXd6R1Ev PjwvdHI+PX91IBYoHI12 LRf3IUM1jPolRUin WRZvN3TgcE2bTiXkDBZr ZGRkOyc+PHRhYmxlIHdp ZHRoPScxMDAlJyBzdHls SZ2fVo6dHZOqJPIc wHlapETwNpZly8vdNDRf YPcuNS9otUteG7WimOX8 NIVxy9f6Fh46J99fI3Qf dXA+PBQtvIE4iTT0 gP4yMqXnLgE6XCgrQ681 CvVjnIRxFqsgw0bkr2yd gTg2OnJ2CSUeewJkxOvm AQB1r0DlWh67J55b IHdpZHRoPSIxNSUiIHZh hAbqvn2npY9eFu3+PGNv dJH9jXG3nN2aMkOhRsW1 MBlhD661RmFpwHCk Klqay6vnn3ubgAu7KyGh MUVxazMrnSgzYLO7e8Je Bb40Z6YtwChpg3IzNky8 ei28qSAig4Y0oCY6 R4VgENEqhuvosMCsoNaj ZH1dFQTinkaxPAKraA2q NIBwY9h1VyKjKnP8WMjw Z2AaevS7RVCxqWRw VNKthYBSrN0aawnqz7xm vzgeZoFiWXOuCPz4TDh7 JPBsuLgyZsNnQVJ9ZxY5 ANP1mCKyhL7rvVbs xutqkF3pTzn+BCG2zNTa dDBKLD7lCsxntVX+PHRk EVE3dOznLEwqFDYrcF6i VCLcB0c7EhTkOqV6 NBbnE6JxnqS5SKAybBKc ATWvdHUMzL3icskna9yp sdswLgYmDABrBCt9WCm0 LWFsaWduOiBsZWZ0 ZsE0ATY9gKPmiU2waKmm wtwswT0fEkn+QmlydGgg WLC4EQw4G1OtIir2HJSd aYbgPH9bqGUbYOrf Ix8buEvhuCmzCN2rCYBq ajpgi763DrHdn9pxYWIl pYQnWJhlDTR7C90pz1L8 LXKmGDGaMHA9gTL3 tT9utKccrajnmTEotShj sfYruEvgJHdtVBswY594 BLGwjDxbOlCsSSl1I8Pc Qqu3JNXipEmbYK7s zULlBHzvVy0siKorqWlx XY8yQJAperpdw084RxLg t0mrRYKjsGTwJWhvXDP6 I41ao4K6WUHgACFn UVI3sIX2cM3dqKhejrmi bGVmdDsgdmVydGljYWwt GCgoQ852YCYcnQhhRcBq zNj1S8IiUhv4IKRr tKghGP5koDBdTXmoVb3e pQlkuDztYO7xPQSzsfhe u503MvVja0rlSVRsdNQq TLhoFNY4F88sd3Q9 DPXgDLLdTML2cXC8bU5w bGlnbjogbGVmdDsgdmVy kHpoZIqsKDwvL054OAGq cDsnPlBhdGllbnQg NVfyMOr7Y6YcVdkklXD+ JB26EVNoBZ23iIKonPXh i9wrrWe9KiSwAJQkPQE8 oSpaXYgql4KtEHLe W84dqIKup6R4HNTuoYpo iXGpNlZlbIF0uV2kBVlp fgueu3fvxbujXilsf7fk tv28lW04Y91xBQgd ZHRoPSIzMCUiIHZhbGln ea6tnK0tIw6+PGNvbCB3 oYQ4nD2tEXUmJnX8RVkw I825CpMxyZCtWzds y4bgp4hfzCq1AhV7NWAo auVhaYliTHX1u1AjKr21 G10jZMqkWRGtMGTdIFWi ETYitRvipd0hwC7w Ii8+PHIztNV8vOY5lY5c TdFgLnV4JOwvP034StEk wNUrKxxdA93oV1EoqFM+ HCXaEge7LWHyqGdm LD3ezJLyNFupEj3vKHK7 IxObAnJkJMbhV2LdXZYw aqazoykylIL0JDOaCMFf hY71Mt8yuTiiXBLr zXEJnS5mtkwwp6yamzqg CnSuTICrIJr2GQv8GOKy mQfpNwGqYQO7LrO3AHE4 hHBvbG8eyMkwipua zC6fT2IcPZDeigljGj75 vM0hTxWdJjN4WQatCji+ TEVNQUlUUkUsIEFTSExJ HJ23YN78rTUdg7H8 uEV0Y9QvWZForbpavmks vNA9IDXoJLKkuG22jHWo QWhaLy9su7M6u970TSWj HUGabP66Ca4pqDvh TZNqhSGEnN2mzqlaj6hj jnwzNbHjUBAbPFl2HOo9 YIWvbMwyWkRwAOV5RnM8 VRQ0wHGadV6anZfw rrjejH3mJmj+MDkvMTQv XQn6ROkqoJZ+PHRkIHN0 jCiuPZyaWALdxT9rDLQa V0a7RuMcTrE9PAdl R8GvWQBafydoRz78sI2b WgUwExM1CLygJ2JkfrX4 ILLydMNlHDngMWN8H72c b5S4CPLiYANrOYT1 gCU8eE0ghCtqideatFYd dDsgdmVydGljYWwtYWxp F403CTOzjRasMyK4RNby BCKiBT03KZ49bGFw x3Z2oWD0G1HmJSOisgll qsiwuQS2JVCqNCPafX33 wBLmDOitBl9ch1H4x915 LQYdTSDfeX81Jp0e sVmmIHJgiHBLeR0xfgcp p3mlqtajLkLaZXKgENp7 WCl0TEHtrGqhHhGqOZZ4 DbF4XVN4pEAtjN7p eEnvyxddlP9uNnm+RmVt DKsgOH14LF39iZQna6Y7 iKB6I3BvYFMxevuqrsdy zBG5YFIpLFGhxO34 tDCoMVsrBi8ig6V1c820 HWBiRBVvuV90Ce5qlVsh GFGznKQXeO1mvzymh3sd cjogIzAwMDAwMDt0 GMk3BLKezLryUcZrXQV4 WaG9COK7xMJtjE3sgRrk agzkcS6rQyg+TGFiIERy l4Fkr3EbLQ34QE15 E1VgAdfnxLUuaGN+PHRh YmxlIHdpZHRoPScxMDAl DpYljUxsQU2xTz0cNJGd LWNvbGxhcHNlOiBj r7nzKOShHDijGN7kbLkb W3FtzTH2ODQve3s2Pq83 N77jL3YezHM+PGNvbCB3 kPA0aI3qDqGiSaP9 UBuxE333OxXabKGaFlcj x3ysq4clsXw6ZyBgEKSq dzZfpSztOVF7j8LgJf45 C31lIJqdWYQvYVHz HHAxGJLulQxqwm8waT2a Ii8+TGQiiEJ2bNI9aN4j QrPzOsA5AIthZ948MbNp cGTqYatvX41jY5Ri dXA+ACXfVxq4PUTgzAke RY7lzRFrELhmLr7bSLS3 DlCiYgQnLNciL7PsLEGv koehodcxaVJ8DIXt JJDucV49Ud4ebWqeBe9z PGUzQPP1WQDewLBwD0Rv yO4zQgZdAJBtSEUhM4Eb kXIcVQozA847QKbi TiJ9KDGritPjP6OeJZWr xAbmGbN9y9B3Ij8NeYnr tTEeDS4zRxAwUJd6J5Hi Yjx4JQUmxXmtFG3v cNWbGIaqPa8tmHswfKjl KZ8kXKZmuamgs034DwZa g1xpSWXygCAnYOgtCCF2 A20ux4M7OXZtMRSx FVR0hIE3gX8buIiihjzd bGVmdDsgdmVydGljYWwt AYyzU319FIExcWnaGrIG Lyz9T6PsRtd0XYSa jOmdFZ6syPZuOQpsAr5a mYbtgDqcXA5cSGIoxosk s952GwGng4qpXDMlzROh EXbaNKT4F86oe2K8 RINqBTYsUZM8rAJ5cI8f bGlnbjogbGVmdDsgdmVy kRisHHckXTdwP659IGDl hXcjXd4BAwl0A0Mx Cvm1GMOhcGoiVX7gtJQu PNzgNj3czBfusAuhVZ0e NNBfsnhjj956MgXoq7vn IDEwcHQgVGltZXM7 E70er0Q9KOPjYIYmVJM2 aUA6qM8ggHzydffkdHKh dDsgdmVydGljYWwtYWxp M569WGDapVdqAzQq eWVyOjwvdGQ+SF89qu09 D2WpJgauVuj8PKUiKTG7 uIV4jJ1uXMIvLYtkw1X3 uLU5I5SixqGmuu3c z6ojHJKvHOcmY (more content not included)... [facility] Physician Orderon 04-01-2024 Physician Order [id number] 1#1.00TIFF [facility] Physician Orderon 03-31-2024 Physician Order [id number]# 1.00TIFF [facility] Ambulatory Visit Summaryon 0 03-27-2024 Ambulatory Visit Summary KARLA PEREZ :1990 Visit Date:03/27/2024 Ambulatory Visit Instructions Your Diagnosis Sleep disorder Hypokalemia BMI 60.0-69.9, adult, Body mass index [BMI] 60.0-69.9, adult Class 3 severe obesity due to excess calories with body mass index (BMI) of 60.0 to 69.9 in adult Nonsmoker Your Care Team Attending Physician - ANN MARIE ROBLERO CNP Primary Care Physician - Kael Chan MD This Is Your Medications List buprenorphine-naloxo ne (Suboxone 8 mg-2 mg sublingual film) cyanocobalamin (cyanocobalamin 2500 mcg sublingual tablet) gabapentin (gabapentin 800 mg Tab) hydrochlorothiazide (hydrochlorothiazide 25 mg Tab) levothyroxine (levothyroxine 100 mcg (0.1 mg) Tab) nystatin topical (nystatin Top 100,000 units/g Crm 15 gram) semaglutide (Wegovy (0.25 mg dose) subcutaneous solution) Procedures Performed None. Discharge Vitals Temperature (Oral) 36.4 ?C Heart Rate (Peripheral) 92 Respiratory Rate 18 Blood Pressure 144/80 Height 161.7 cm Height 64 in Weight 159.4 kg Weight 350.68 lb BMI 60.96 What to do next Scheduled Follow-Up Appointments Sunday 2:00 PM EDT With: ANN MARIE ROBLERO CNP Where: [facility] [place] Normal Body mass index [BMI] 60.0-69.9, adult, Print Label By Order Location\.br\ Medications\.br\ What How Much When Why Instructions\.br\ Unchanged buprenorphine-naloxo ne (Suboxone 8 mg-2 mg sublingual film) See instructions 3 daily dissolved under the tongue \.br\ Unchanged cyanocobalamin (cyanocobalamin 2500 mcg sublingual tablet) See instructions Take 2 sublingual daily \.br\ Unchanged gabapentin (gabapentin 800 mg Tab) See instructions Take one orally every morning and afternoon and 2 at bedtime \.br\ Unchanged hydrochlorothiazide (hydrochlorothiazide 25 mg Tab) 1 Tablets By Mouth Every day\.br\ Unchanged levothyroxine (levothyroxine 100 mcg (0.1 mg) Tab) 1 Tablets By Mouth Every day\.br\ Unchanged nystatin topical (nystatin Top 100,000 units/ g Crm 15 gram) 1 Application Topical 2 times a day Yeast infection of the skin Body mass index [BMI] 60.0-69.9, adult\.br\ Unchanged semaglutide (Wegovy (0.25 mg dose) subcutaneous solution) 0.25 Milligram Subcutaneous Every week Obesity, morbid Encounter to establish care BMI 60.0-69.9, adult Class 3 severe obesity due to excess calories with body mass index (BMI) of 60.0 to 69.9 in adult Nonsmoker\.br\ Allergies\.br\ No Known Allergies\.br\ No Known Medication Allergies\.br\ Problems\.br\ Ongoing - Any problem that you are currently receiving treatment for.\.br\ Anemia\.br\ Anxiety\.br\ DDD (degenerative disc disease), lumbar\.br\ Hypertension\.br\ Hypothyroid\.br\ Major depressive disorder with single episode, in full remission\.br\ Mild intermittent asthma without complication\.br\ STEEL (nonalcoholic steatohepatitis)\.br \ Neuropathy\.br\ Obesity, morbid\.br\ Opiate use\.br\ Vitamin B12 deficiency\.br\ Patient Survey\.br\ You may receive a survey via text or e-mail asking about your office visit. Please share your experience with us by completing your survey. We appreciate your feedback and thank you for choosing us for your care.\.br\ \.br\ [facility] CHEMISTRYOrdered By: SYSTEM SYSTEM on 03-27-2024 Potassium [Moles/Vol] 3.2 mmol/L Low 3.5 - 5.3 mmol/L Remisol Chem Family Medicine Office/Clini c Noteon 03-27-2024 Family Medicine Office/Clinic Note HPI Staff Karla is a 33 year old female presenting to discuss low potassium Pt has labs on 03/18/24 Potassium 3.2 was advised to cut HCTZ in half re check potassium today , Would like to discuss having sleep study ordered Snoring: yes Witnessed Apnea: says she kicks and fights in her sleep Gasping at night: yes Fatigue:v yes Restless leg: yes HTN: yes Nocturnal Urination: frequently Concerns: just she doesn't feel rested, had a camera on herself, kicks her legs all night, wakes up screaming History of Present Illness Patient presents today to discuss her laboratory results and to discuss sleep disorder. Her potassium level was 3.2 on 03/18/2024. She was instructed to decrease the Hydochlorothiazide 25 mg to 1/2 tablet daily. She will have a K+ level drawn today at this visit. She reports her has asked her to ask about a sleep study. She states he reports she snores, gasps at night, stops breathing, Kicks at night, fights something in her sleep, and she does not feel refreshed when she wakes up. Her neck measures 17 1/4 and her BMI is >60. She reports she attempts to sleep for 8 hours each night. She states she goes to bed around 12 am-3 Am and then gets up around 1or 2 pm. she denies napping during the day. Review of Systems Constitutional: no fever, no chills, no sweats, no weakness Respiratory: no shortness of breath, no cough, no orthopnea, no wheezing Cardiovascular: no chest pain, no palpitations, no edema Additional ROS info: Except as noted in the above Review of Systems and in the History of Present Illness all other systems have been reviewed and are negative or noncontributory. Physical Exam Vitals & Measurements T: 36.4 ?C(Oral) HR: 92(Peripheral) RR: 18 BP: 144/80 SpO2: 97% HT: 64 in HT: 161.7 cm WT: 159.4 kg WT: 350.68 lb BMI: 60.96 General: alert, no acute distress ENMT: TM's clear, oral mucosa moist, no pharyngeal erythema or exudate; Neck measures 17 10/18 Cardiovascular: regular rate and rhythm, normal peripheral perfusion Respiratory: Lungs CTA, respirations non labored Extremities: no deformity, no trauma Neurological: oriented x 4, LOC appropriate for age speech normal Assessment/Plan 1. Sleep disorder (G47.9: Sleep disorder, unspecified) Neck measures 17 1 Patient reports snoring & periods of apnea Awaiting sleep study results Ordered: Lab Specimen Collect 35361 Sleep Study Baseline 2. Hypokalemia (E87.6: Hypokalemia) Patient to continue with Hydochlorothiazide 25 mg take 1/2 tablet po daily Awaiting K+ level Will consider changing medication to control B/P if there is not any improvement in the K+ level Ordered: Lab Specimen Collect [id number] Potassium Level 3. BMI 60.0-69.9, adult, (Z68.44: Body mass index [BMI] 60.0-69.9, adult)Body mass index [BMI] 60.0-69.9, adult The standard range for ages 18 and older is >=18.5 and < 25 kg/m2. Your BMI today was above this range, this falls in the overweight to obese category and there are medical benefits to weight loss. We can offer counselling, referral, and/or medical support in addressing this problem. Your BMI and weight management will be followed at subsequent visits. Ordered: Lab Specimen Collect [id number] Potassium Level Sleep Study Baseline 4. Class 3 severe obesity due to excess calories with body mass index (BMI) of 60.0 to 69.9 in adult (E66.01: Morbid (severe) obesity due to excess calories) The standard range for ages 18 and older is >=18.5 and < 25 kg/m2. Your BMI today was above this range, this falls in the overweight to obese category and there are medical benefits to weight loss. We can offer counselling, referral, and/or medical support in addressing this problem. Your BMI and weight management will be followed at subsequent visits. Ordered: Lab Specimen Collect 19554 Sleep Study Baseline 5. Nonsmoker (Z78.9: Other specified health status) Encouraged to continue as a non-smoker Ordered: Lab Specimen Collect [id number] Follow-up No qualifying data available Patient Education Potassium Content of Foods Problem List/Past Medical History Ongoing Anemia Anxiety DDD (degenerative disc disease), lumbar Hypertension Hypothyroid Major depressive disorder with single episode, in full remission Mild intermittent asthma without complication STEEL (nonalcoholic steatohepatitis) Neuropathy Obesity, morbid Opiate use Vitamin B12 deficiency Historical No qualifying data Procedure/Surgical History None. Medications cyanocobalamin 2500 mcg sublingual tablet, See Instructions, Not taking gabapentin 800 mg Tab, See Instructions hydrochlorothiazide 25 mg Tab, 25 mg= 1 tab(s), Oral, Daily levothyroxine 100 mcg (0.1 mg) Tab, 100 mcg= 1 tab(s), Oral, Daily nystatin Top 100,000 units/g Crm 15 gram, 1 juli, Topical, BID Suboxone 8 mg-2 mg sublingual film, See Instructions Wegovy (0.25 mg dose) subcutaneous solution, 0.25 mg, SubCutaneous, qWeek, Unable to obtain (more content not included)... Normal [facility] Comment on above: Result Comment: Elec tronically Signed By: ANN MARIE ROBLERO CNP\.claudine\Date and Time Signed: 03/27/24 12:54 EDT Patient Educationon 03-27-20 Patient Education Nephrology Potassium Content of Foods Potassium is a mineral found in many foods and drinks. It can affect how the heart works, affect blood pressure, and keep fluids and electrolytes balanced in the body. It is important not to have too much potassium (hyperkalemia) or too little potassium (hypokalemia) in the body, especially in the blood. Potassium is naturally found in many different types of whole foods, such as fruits, vegetables, meat, and dairy products. Processed foods tend to be lower in potassium. The amount of potassium you need each day depends on your age and any medical conditions you may have. General recommendations are: ? Females aged 19 and older: 2,600 mg per day. ? Males aged 19 and older: 3,400 mg per day. Talk with your health care provider or dietitian about how much potassium you need. What foods are high in potassium? Below are examples of foods that have greater than 200 mg of potassium per serving. Fruits ? [place] ? 1 medium (130 g) has 230 mg of potassium. ? Banana ? 1 medium (120 g) has 420 mg of potassium. ? Cantaloupe, chunks ? 1 cup (160 g) has 430 mg of potassium. Vegetables ? Potato, baked, without skin ? 1 medium (170 g) has 600 mg of potassium. ? Broccoli, chopped, cooked ? ? cup (77.5 g) has 230 mg of potassium. ? Tomato, chopped or sliced ? 1 cup (152 g) has 400 mg of potassium. Grains ? Cereal, bran with raisins ? 1 cup (59 g) has 360 mg of potassium. ? Granola with almonds ? ? cup (82 g) has 220 mg of potassium. Meats and other proteins ? Ground beef phillip ? 4 ounces (113 g) has 240 mg of potassium. ? Kidney beans, boiled ? ? cup (130 g) has 350 mg of potassium. ? Almonds ? 1 ounce (approximately 22 nuts or 28 g) has 200 mg of potassium. Dairy ? Cow's milk, 1% ? 1 cup (237 mL) has 360 mg of potassium. ? Plain vanilla low-fat yogurt ? ? cup (184 g) has 220 mg of potassium. The items listed above may not be a complete list of foods high in potassium. Actual amounts of potassium may be different depending on ripeness, shelf life, and food preparation. Contact a dietitian for more information. What foods are low in potassium? Below are examples of foods that have less than 200 mg of potassium per serving. Fruits ? Blueberries ? 1 cup (145 g) has 110 mg of potassium. ? Apple ? 1 medium (140 g) has 145 mg of potassium. ? Grapes ? 1 cup (160 g) has 175 mg of potassium. Vegetables ? Cabbage, raw ? 1 cup (70 g) has 120 mg of potassium. ? Cauliflower, chopped, cooked ? 1 cup (180 g) has 90 mg of potassium. ? Gerber lettuce, chopped ? 1 cup (56 g) has 120 mg of potassium. Grains ? Bagel, plain ? one 4-inch (10 cm) has 100 mg of potassium. ? Whole wheat bread ? 1 slice (26 g) has 70 mg of potassium. ? White rice, cooked ? 1 cup (163 g) has 50 mg of potassium. Meats and other proteins ? Tuna, light, canned in water ? 3 ounces (85 g) has 150 mg of potassium. ? Egg, fried ? 1 large (50 g) has 60 mg of potassium. ? Peanuts ?1 ounce (35 nuts or 28 g) has 180 mg of potassium. ? Tofu ? ? cup (252 g) has 150 mg of potassium. Dairy ? Cheese (cheddar, matt, mozzarella, or provolone) ? 1 ounce (28 g) has 30 to 40 mg of potassium. The items listed above may not be a complete list of foods that are low in potassium. Actual amounts of potassium may be different depending on ripeness, shelf life, and food preparation. Contact a dietitian for more information. Summary ? Potassium is a mineral found in many foods and drinks. It affects how the heart works, affects blood pressure, and keeps fluids and electrolytes balanced in the body. ? The amount of potassium you need each day depends on your age and any existing medical conditions you may have. ? Your health care provider or dietitian may recommend an amount of potassium that you should have each day. This information is not intended to replace advice given to you by your health care provider. Make sure you discuss any questions you have with your health care provider. Document Revised: 07/04/2022 Document Reviewed: 06/15/2022 [employer] Patient Education ? 2022 [employer] Normal [facility] Potassiumon 03-27-2024 Potassium [Moles/Vol] 3.2 mmol/L Low 3.5-5.3 [facility] Comment on above: Performed By: #### 2 [id number] #### [facility] [address] [place] [address] Physician Referralon 024 Physician Referral [phone] [id number] Normal [facility] Ambulatory Visit Summaryon 0 03-18-2024 Ambulatory Visit Summary KARLA PEREZ :1990 Visit Date:03/18/2024 Ambulatory Visit Instructions Your Diagnosis Obesity, morbid, Class 3 severe obesity due to excess calories with body mass index (BMI) of 60.0 to 69.9 in adult Encounter to establish care BMI 60.0-69.9, adult, Body mass index [BMI] 60.0-69.9, adult Nonsmoker Your Care Team Attending Physician - ANN MARIE ROBLERO CNP Primary Care Physician - Kael Chan MD. This Is Your Medications List Contact prescribing physician if questions or concerns buprenorphine-naloxo ne (Suboxone 8 mg-2 mg sublingual film) cyanocobalamin (cyanocobalamin 2500 mcg sublingual tablet) gabapentin (gabapentin 800 mg Tab) hydrochlorothiazide (hydrochlorothiazide 25 mg Tab) levothyroxine (levothyroxine 100 mcg (0.1 mg) Tab) [Image Removed: STOP]Stop taking these medications meloxicam (meloxicam 15 mg Tab) semaglutide (Ozempic 2 mg/3 mL (0.25 mg or 0.5 mg dose) subcutaneous solution) Procedures Performed None. Discharge Vitals Temperature (Oral) 36.6 ?C Heart Rate (Peripheral) 76 Respiratory Rate 18 Blood Pressure 136/84 Height 161.7 cm Height 64 in Weight 158.0 kg Weight 347.6 lb BMI 60.43 What to do next Scheduled Follow-Up Appointments Sunday 2:00 PM EDT With: ANN MARIE ROBLERO CNP Where: [facility] [place] Normal [facility] CBC w/ Auto Diffon 4 Basophils/100 WBC (Bld) 0.9 % Normal 0.0-2.0 [facility] Comment on above: Performed By: #### 2 [id number] #### [facility] [address] [place] [address] Basophils/Leukocyte s Auto (Bld) [Pure # fraction] 0.1 E9/L Normal 0.0-0.2 [facility] Comment on above: Performed By: #### 2 [id number] #### [facility] [address] [place] [address] Eosinophils (Bld) [#/Vol] 0.3 E9/L Normal 0.0-0.5 [facility] Comment on above: Performed By: #### 2 [id number] #### [facility] [address] [place] [address] Eosinophils/100 WBC (Bld) 3.7 % Normal 0.0-8.0 [facility] Comment on above: Performed By: #### 2 [id number] #### [facility] [address] [place] [address] Erythrocyte distribution width (RBC) [Ratio] 15.2 % High 10.9-14.2 [facility] Comment on above: Performed By: #### 2 [id number] #### [facility] [address] [place] [address] Hematocrit (Bld) [Volume fraction] 41.9 % Normal 34.0-46.0 [facility] Comment on above: Performed By: #### 2 [id number] #### [facility] [address] [place] [address] Hemoglobin (Bld) [Mass/Vol] 13.9 g/dL Normal 12.0-16.0 [facility] Comment on above: Performed By: #### 2 [id number] #### [facility] [address] [place] [address] Lymphocytes (Bld) [#/Vol] 2.4 E9/L Normal 1.0-4.0 [facility] Comment on above: Performed By: #### 2 [id number] #### [facility] [address] [place] [address] Lymphocytes/100 WBC (Bld) 32.6 % Normal 14.0-50.0 [facility] Comment on above: Performed By: #### 2 [id number] #### [facility] [address] [place] [address] MCH (RBC) [Entitic mass] 28.0 pg Normal 27.0-34.0 [facility] Comment on above: Performed By: #### 2 [id number] #### [facility] [address] [place] [address] MCHC (RBC) [Mass/Vol] 33.1 g/dL Normal 31.4-36.0 [facility] Comment on above: Performed By: #### 2 [id number] #### [facility] [address] [place] [address] MCV (RBC) [Entitic vol] 84.6 fL Normal 80.0-100.0 [facility] Comment on above: Performed By: #### 2 [id number] #### [facility] [address] [place] [address] Monocytes (Bld) [#/Vol] 0.6 E9/L Normal 0.2-1.0 [facility] Comment on above: Performed By: #### 2 [id number] #### [facility] [address] [place] [address] Neutrophils (Bld) [#/Vol] 4.0 E9/L Normal 2.0-7.5 [facility] Comment on above: Performed By: #### 2 [id number] #### [facility] [address] [place] [address] Neutrophils/100 WBC (Bld) 54.3 % Normal 36.0-75.0 [facility] Comment on above: Performed By: #### 2 [id number] #### [facility] [address] [place] [address] Platelet mean volume (Bld) [Entitic vol] 8.2 fL Normal 6.4-10.8 [facility] Comment on above: Performed By: #### 2 [id number] #### [facility] [address] [place] [address] Platelets (Bld) [#/Vol] 386.0 E9/L Normal 150.0-500.0 [facility] Comment on above: Performed By: #### 2 [id number] #### [facility] [address] [place] [address] RBC (Bld) [#/Vol] 5.0 E12/L Normal 4.3-5.9 [facility] Comment on above: Performed By: #### 2 [id number] #### [facility] [address] [place] [address] WBC corrected for nucl RBC Auto (Bld) [#/Vol] 7.3 E9/L Normal 4.0-11.0 [facility] Comment on above: Performed By: #### 2 [id number] #### [facility] [address] [place] [address] CHEMISTRYOrdered By: SYSTEM SYSTEM on 03-18-2024 Albumin [Mass/Vol] 4.0 g/dL Normal 3.3 - 5.0 gm/dL R emisol Chem Albumin/Globulin [Mass ratio] 1.1 {ratio} Normal 1.1 - 2.2 [facility] ALP [Catalytic activity/Vol] 73 [iU]/d Normal 21 - 98 Int._Unit/L [facility] ALT No additional P-5'-P [Catalytic activity/Vol] 23 [iU]/d Normal 6 - 46 Int._Unit/L [facility] Anion gap [Moles/Vol] 12 mmol/L Normal 6 - 16 mEq/L [facility] AST [Catalytic activity/Vol] 22 [iU]/d Normal 5 - 43 Int._Unit/L [facility] Bilirubin [Mass/Vol] 0.5 mg/dL Normal 0.0 - 1.1 mg/dL [facility] Calcium [Mass/Vol] 9.0 mg/dL Normal 8.9 - 11.1 mg/dL [facility] Chloride [Moles/Vol] 101 mmol/L Normal 101 - 111 mmol/L [facility] Cholesterol [Mass/Vol] 168 mg/dL Normal 120 - 200 mg/dL [facility] Cholesterol in HDL [Mass/Vol] 45 mg/dL Invalid Interpretation Code [facility] Comment on above: Result Comment: '>= 60 LOW RISK' '<= 40 HIGH RISK' Cholesterol in LDL [Mass/Vol] 107 mg/dL Normal <=129mg/dL [facility] Cholesterol in VLDL [Mass/Vol] 25 mg/dL Normal 7 - 40 mg/dL [facility] CO2 [Moles/Vol] 30 mmol/L Normal 21 - 31 mmol/L Remis ol Chem Creatinine [Mass/Vol] 0.6 mg/dL Normal 0.5 - 1.3 mg/dL [facility] eGFR 120 mL/min/1.73 m2 Normal >=59mL/min/1.73 m 2 [facility] Globulin (S) [Mass/Vol] 3.7 g/dL Normal 1.4 - 4.0 gm/dL [facility] Glucose [Mass/Vol] 102 mg/dL Normal 55 - 199 mg/dL Re misol Chem Potassium [Moles/Vol] 3.2 mmol/L Low 3.5 - 5.3 mmol/L [facility] Protein [Mass/Vol] 7.7 g/dL Normal 6.0 - 7.8 gm/dL R emisol Chem Sodium [Moles/Vol] 140 mmol/L Normal 135 - 145 mmol/L [facility] Triglyceride [Mass/Vol] 123 mg/dL Normal <=149mg/dL [facility] TSH Qn 1.14 m[IU]/L Normal 0.34 - 5.60 mcIU/mL Rem isol Chem Urea nitrogen [Mass/Vol] 9 mg/dL Normal 5 - 21 mg/dL Rem[facility] Urea nitrogen/Creatinine [Mass ratio] 15 mg/mg Normal 10 - 20 [facility] CHEMISTRYOrdered By: Bharati Stephen on 03-18-2024 HbA1c (Bld) [Mass fraction] 5.7 % Normal <=5.9% [facility] [place] [facility] CMPon 03-18-2024 Albumin [Mass/Vol] 4.0 g/dL Normal 3.3-5.0 [facility] Comment on above: Performed By: #### 2 [id number] #### [facility] [address] [place] [address] Albumin/Globulin (S) [Mass conc ratio] 1.1 Normal 1.1-2.2 [facility] Comment on above: Performed By: #### 2 [id number] #### [facility] [address] [place] [address] ALP [Catalytic activity/Vol] 73 Int._Unit/L Normal 21-98 [facility] Comment on above: Performed By: #### 2 [id number] #### [facility] [address] [place] [address] ALT No additional P-5'-P [Catalytic activity/Vol] 23 Int._Unit/L Normal 6-46 [facility] Comment on above: Performed By: #### 2 [id number] #### [facility] [address] [place] [address] Anion gap [Moles/Vol] 12 mmol/L Normal 6-16 [facility] Comment on above: Performed By: #### 2 [id number] #### [facility] [address] [place] [address] AST [Catalytic activity/Vol] 22 Int._Unit/L Normal 5-43 [facility] Comment on above: Performed By: #### 2 [id number] #### [facility] [address] [place] [address] Bilirubin [Mass/Vol] 0.5 mg/dL Normal 0.0-1.1 [facility] Comment on above: Performed By: #### 2 [id number] #### [facility] [address] [place] [address] Calcium [Mass/Vol] 9.0 mg/dL Normal 8.9-11.1 [facility] Comment on above: Performed By: #### 2 [id number] #### [facility] [address] [place] [address] Chloride [Moles/Vol] 101 mmol/L Normal 101-111 [facility] Comment on above: Performed By: #### 2 [id number] #### [facility] [address] [place] [address] CO2 [Moles/Vol] 30 mmol/L Normal 21-31 [facility] Comment on above: Performed By: #### 2 [id number] #### [facility] [address] [place] [address] Creatinine [Mass/Vol] 0.6 mg/dL Normal 0.5-1.3 [facility] Comment on above: Performed By: #### 2 [id number] #### [facility] [address] [place] [address] Globulin (S) [Mass/Vol] 3.7 g/dL Normal 1.4-4.0 [facility] Comment on above: Performed By: #### 2 [id number] #### [facility] [address] [place] [address] Glucose [Mass/Vol] 102 mg/dL Normal 55-199 [facility] Comment on above: Performed By: #### 2 [id number] #### [facility] [address] [place] [address] Potassium [Moles/Vol] 3.2 mmol/L Low 3.5-5.3 [facility] Comment on above: Performed By: #### 2 [id number] #### [facility] [address] [place] [address] Protein [Mass/Vol] 7.7 g/dL Normal 6.0-7.8 [facility] Comment on above: Performed By: #### 2 [id number] #### [facility] [address] [place] [address] Sodium [Moles/Vol] 140 mmol/L Normal 135-145 [facility] Comment on above: Performed By: #### 2 [id number] #### [facility] [address] [place] [address] Urea nitrogen [Mass/Vol] 9 mg/dL Normal 5-21 [facility] Comment on above: Performed By: #### 2 [id number] #### [facility] [address] [place] [address] Urea nitrogen/Creatinine [Mass ratio] 15 No Units Normal 10-20 [facility] Comment on above: Performed By: #### 2 [id number] #### [facility] [address] [place] [address] Family Medicine Office/Clini c Noteon 03-18-2024 Family Medicine Office/Clinic Note HPI Staff Karla is a 33 year old female presenting to establish care Establish Care: History: anemia ddd, STEEL, asthma, hypothyroidism, anxiety, depression Any previous diagnosis: History of seeing any specialist: When was your last doctors visit: 11/17/22 Last provider: Kathie Any recent labs: 11/17/22 Health Maintenance UTD: Colonoscopy: none Mammogram: none Pelvic/Pap: havent had one in a while Acute: wants to discuss weight loss, used ozempic in past and it worked for her, also belly button bleeding Current issues/complaints: would like the meloxicam refilled and ozempic, ran out and hasn't seen a dr for refills since Dr Vázquez left History of Present Illness 33 year old presents today to establish care with this provider. She was a previous patient of Dr. Vázquez. She reports she was prescribed Ozempic 0.25 mg subq weekly last year and she states she lost about 20-30 pounds on the medication. However, she reports she did not follow through with keeping appointments. She denies a history of diabetes. She states she would like to lose 150 lbs. She walks about 1/2 a mile 2 times per week but has not been doing that lately. She reports in the past she has tried the keto diet with out success. She states she knows she can not have Adipex because of the Suboxone she takes. She is hoping to get something to help her with weight lose. She has a concern about the drainage coming from her belly button . She states this has been occurring for about 1-2 weeks. She has been cleansing the area and using toilet paper in the belly button to catch the drainage. Review of Systems PHQ Score Initial Depression Screen Score: 0 SCORE Constitutional: no fever, no chills, no sweats, no weakness Skin: no Jaundice, moderate rash, no lesions, nopetechiae ENMT: no ear pain, no sore throat, no congestion, no hoarseness Respiratory: no shortness of breath, no cough, no orthopnea, no wheezing Cardiovascular: no chest pain, no palpitations, no edema Gastrointestinal: no nausea, no vomiting, no diarrhea, no GI bleeding Genitourinary: no dysuria, no hematuria, no discharge, no pain Musculoskeletal: no back pain, no trauma Neurologic: no headache, no dizziness, no numbness, no weakness Psychiatric: no sleeping problems, no irritability, no mood swings/depression. Heme/Lymph: no bleeding tendency, no bruising tendency, no petechiae, no swollen nodes Allergy/Immunologic: no seasonal allergies, no food allergies, no recurrent infections, no impaired immunity Additional ROS info: Except as noted in the above Review of Systems and in the History of Present Illness all other systems have been reviewed and are negative or noncontributory. Physical Exam Vitals & Measurements T: 36.6 ?C(Oral) HR: 76(Peripheral) RR: 18 BP: 136/84 SpO2: 96% HT: 64 in HT: 161.7 cm WT: 158.0 kg WT: 347.6 lb BMI: 60.43 General: alert, no acute distress Skin: warm, dry, Head: no trauma, normocephalic Neck: Trachea midline, no adenopathy, no tenderness Eye: normal conjunctiva, sclera clear ENMT: TM's clear, oral mucosa moist, no pharyngeal erythema or exudate Cardiovascular: regular rate and rhythm, normal peripheral perfusion Respiratory: Lungs CTA, respirations non labored Chest wall: no deformity. Gastrointestinal: soft, non distended, no tenderness, no guarding, umbilucus excoriated, no drainage noted Back: No tenderness, Normal ROM, Normal alignment. Extremities: no deformity, no trauma Neurological: oriented x 4, LOC appropriate for age, CN II-XII intact, motor strength equal & normal bilaterally, sensation equal & normal bilaterally, speech normal Psychiatric: cooperative, affect appropriate for age, normal judgement, normal psychiatric thoughts. Assessment/Plan 1. Obesity, morbid, (E66.01: Morbid (severe) obesity due to excess calories)Class 3 severe obesity due to excess calories with body mass index (BMI) of 60.0 to 69.9 in adult Encouraged daily exercise to be 20-30 minutes 5-7x/week Discussed portion control Will refer to prosthetic technician Start semaglutide, 0.25 mg, SubCutaneous weekly f/u 4 weeks Ordered: semaglutide, 0.25 mg, SubCutaneous, qWeek, # 2 mL, Refills(s) 0, Pharmacy: [facility] 161.7, cm, 03/18/24 13:25:00 EDT, Height/Length Dosing, 158, kg, 03/18/24 13:25:00 EDT, Weight Dosing Body Mass Index (BMI) documented 3008F CBC w/ Auto Diff Comprehensive Metabolic Panel Current tobacco non-user 1036F Depression Screening Negative 3352F [facility] [place] Ambulatory Referral [id number] Lab Specimen Collect 75513 Lipid Panel Most recent diastolic blood pressure 80-89 mm Hg 3079F Systolic BP 130-139 mm Hg (Most Recent) 3075F TSH With T4fr Reflex 2. Yeast infection of the skin (B37.2: Candidiasis of skin and nail) Cleanse the umbilicus BID Apply nystatin topical BID to the area f/u in 4 weekd Ordered: nystatin topical, 1 juli, Topical, BID, 15 gram, Refill(s) 0, [facility], 161.7, cm, 06 (more content not included)... Normal [facility] Comment on above: Result Comment: Elec tronically Signed By: ANN MARIE ROBLERO CNP\.br\Date and Time Signed: 03/18/24 14:31 EDT HEMATOLOGYOrdered By: SYSTEM SYSTEM on 03-18-2024 Basophils/100 WBC (Bld) 0.9 % Normal 0.0 - 2.0 % Remisol Heme Basophils/Leukocyte s Auto (Bld) [Pure # fraction] 0.1 E9/L Normal 0.0 - 0.2 E9/L Remisol Heme Eosinophils (Bld) [#/Vol] 0.3 E9/L Normal 0.0 - 0.5 E9/L Remisol Heme Eosinophils/100 WBC (Bld) 3.7 % Normal 0.0 - 8.0 % Remisol Heme Erythrocyte distribution width (RBC) [Ratio] 15.2 % High 10.9 - 14.2 % Remisol Heme Hematocrit (Bld) [Volume fraction] 41.9 % Normal 34.0 - 46.0 % Remisol Heme Hemoglobin (Bld) [Mass/Vol] 13.9 g/dL Normal 12.0 - 16.0 gm/dL Remisol Heme Lymphocytes (Bld) [#/Vol] 2.4 E9/L Normal 1.0 - 4.0 E9/L Remisol Heme Lymphocytes/100 WBC (Bld) 32.6 % Normal 14.0 - 50.0 % Remisol Heme MCH (RBC) [Entitic mass] 28.0 pg Normal 27.0 - 34.0 pg Remisol Heme MCHC (RBC) [Mass/Vol] 33.1 g/dL Normal 31.4 - 36.0 gm/dL Remisol Heme MCV (RBC) [Entitic vol] 84.6 fL Normal 80.0 - 100.0 fL Remisol Heme Monocytes (Bld) [#/Vol] 0.6 E9/L Normal 0.2 - 1.0 E9/L Remisol Heme Monocytes/100 WBC (Bld) 8.5 % Normal 4.0 - 14.0 % Remisol Heme Neutrophils (Bld) [#/Vol] 4.0 E9/L Normal 2.0 - 7.5 E9/L Remisol Heme Neutrophils/100 WBC (Bld) 54.3 % Normal 36.0 - 75.0 % Remisol Heme Platelet mean volume (Bld) [Entitic vol] 8.2 fL Normal 6.4 - 10.8 fL Remisol Heme Platelets (Bld) [#/Vol] 386.0 E9/L Normal 150.0 - 500.0 E9/L Remisol Heme RBC (Bld) [#/Vol] 5.0 E12/L Normal 4.3 - 5.9 E12/L Re misol Heme WBC corrected for nucl RBC Auto (Bld) [#/Vol] 7.3 E9/L Normal 4.0 - 11.0 E9/L Remisol Heme [id number] 03-18-2024 HbA1c (Bld) [Mass fraction] 5.7 % Normal <=5.9 [facility] Comment on above: Performed By: #### 7 [id number] #### [facility] [address] [place] [address] Lipid Panelon 03-18-2024 Cholesterol [Mass/Vol] 168 mg/dL Normal 120-200 [facility] Comment on above: Performed By: #### 2 [id number] #### [facility] [address] [place] [address] Cholesterol in HDL [Mass/Vol] 45 mg/dL Invalid Interpretation Code [facility] Comment on above: Result Comment: '>= 60 LOW RISK' '<= 40 HIGH RISK' Performed By: #### 2 [id number] #### [facility] [address] [place] [address] Cholesterol in LDL [Mass/Vol] 107 mg/dL Normal <=129 [facility] Comment on above: Performed By: #### 2 [id number] #### [facility] [address] [place] [address] Cholesterol in VLDL [Mass/Vol] 25 mg/dL Normal 7-40 [facility] Comment on above: Performed By: #### 2 [id number] #### [facility] [address] [place] [address] Triglyceride [Mass/Vol] 123 mg/dL Normal <=149 [facility] Comment on above: Performed By: #### 2 [id number] #### [facility] [address] [place] [address] Patient Educationon 03-18-20 24 Patient Education Infectious Disease Skin Yeast Infection A skin yeast infection is a condition in which there is an overgrowth of yeast (January) that normally lives on the skin. This condition usually occurs in areas of the skin that are constantly warm and moist, such as the skin under the breasts or armpits, or in the groin and other body folds. What are the causes? This condition is caused by a change in the normal balance of the yeast that live on the skin. What increases the risk? You are more likely to develop this condition if you: ? Are obese. ? Are . ? Are 65 years of age or older. ? Wear tight clothing. ? Have any of the following conditions: ? Diabetes. ? Malnutrition. ? A weak body defense system (immune system). ? Take medicines such as: ? control pills. ? Antibiotics. ? Steroid medicines. What are the signs or symptoms? The most common symptom of this condition is itchiness in the affected area. Other symptoms include: ? A red, swollen area of the skin. ? Bumps on the skin. How is this diagnosed? This condition is diagnosed with a medical history and physical exam. Your health care provider may check for yeast by taking scrapings of the skin to be viewed under a microscope. How is this treated? This condition is treated with medicine. Medicines may be prescribed or available over the counter. The medicines may be: ? Taken by mouth (orally). ? Applied as a cream or powder to your skin. Follow these instructions at home: ? Take or apply odgo-msn-uqfvxeo and prescription medicines only as told by your health care provider. ? Maintain a healthy weight. If you need help losing weight, talk with your health care provider. ? Keep your skin clean and dry. ? Wear loose-fitting clothing. ? If you have diabetes, keep your blood sugar under control. ? Keep all follow-up visits. This is important. Contact a health care provider if: ? Your symptoms go away and then come back. ? Your symptoms do not get better with treatment. ? Your symptoms get worse. ? Your rash spreads. ? You have a fever or chills. ? You have new symptoms. ? You have new warmth or redness of your skin. ? Your rash is painful or bleeding. Summary ? A skin yeast infection is a condition in which there is an overgrowth of yeast (January) that normally lives on the skin. ? Take or apply vegq-kqi-ayxctuf and prescription medicines only as told by your health care provider. ? Keep your skin clean and dry. ? Contact a health care provider if your symptoms do not get better with treatment. This information is not intended to replace advice given to you by your health care provider. Make sure you discuss any questions you have with your health care provider. Document Revised: 12/20/2021 Document Reviewed: 12/20/2021 [employer] Patient Education ? 2022 [employer] Normal [facility] TSH With T4fr Reflexon 03-18 TSH Qn 1.14 m[IU]/L Normal 0.34-5.60 [facility] Comment on above: Performed By: #### 1 [id number] #### [facility] [address] [place] [address] eGFRon 03-18-2024 eGFR 120 mL/min/1.73 m2 Normal >=59 [facility] Comment on above: Order Comment: Order added by Discern Expert. Performed By: #### 1 [id number] #### [facility] [address] [place] [address] CBC AUTO DIFFon 11-17-2022 BASO # 0.1 103/ul Normal 0.0-0.1 [facility] Comment on above: Performed By: #### C BC #### [facility] [address] [address] [address] Delta Flynn Basophils/100 WBC (Bld) 1.1 % Normal 0.2-2.0 [facility] Comment on above: Performed By: #### C BC #### [facility] [address] [address] [address] Delta Flynn EO # 0.6 103/ul Normal 0.0-0.7 [facility] Comment on above: Performed By: #### C BC #### [facility] [address] [place] [address] Dr. Delta Flynn Eosinophils/100 WBC (Bld) 8.8 % Critically high 0.9-7.0 [facility] Comment on above: Performed By: #### C BC #### [facility] [address] [address] [address] Delta Flynn Erythrocyte distribution width (RBC) [Ratio] 14.0 % Normal 11.0-15.0 [facility] Comment on above: Performed By: #### C BC #### [facility] [address] [place] [address] Dr. Delta Flynn Hematocrit (Bld) [Volume fraction] 37.3 % Normal 36.0-48.0 [facility] Comment on above: Performed By: #### C BC #### [facility] [address] [address] [address] Delta Flynn Hemoglobin (Bld) [Mass/Vol] 13.1 g/dL Normal 12.0-16.0 [facility] Comment on above: Performed By: #### C BC #### [facility] [address] [place] [address] Dr. Delta Flynn IG # 0.01 10e3/ul Normal 0.00-0.03 [facility] Comment on above: Performed By: #### C BC #### [facility] [address] [place] [address] Dr. Delta Flynn IG % 0.1 % Normal 0.0-0.5 [facility] Comment on above: Performed By: #### C BC #### [facility] [address] [place] [address] Dr. Delta Flynn LYMPH # 2.9 103/ul Normal 1.2-3.8 [facility] Comment on above: Performed By: #### C BC #### [facility] [address] [place] [address] Dr. Delta Flynn Lymphocytes/100 WBC (Bld) 40.5 % Normal 20.5-60.0 [facility] Comment on above: Performed By: #### C BC #### [facility] [address] [place] [address] Dr. Delta Flynn MANUAL DIFF REQ NO Normal [facility] Comment on above: Performed By: #### C BC #### [facility] [address] [place] [address] Dr. Delta Flynn MCH (RBC) [Entitic mass] 27.4 pg Normal 26.7-34.0 [facility] Comment on above: Performed By: #### C BC #### [facility] [address] [place] [address] Dr. Delta Flynn MCHC (RBC) [Mass/Vol] 35.1 g/dL Normal 29.9-35.2 [facility] Comment on above: Performed By: #### C BC #### [facility] [address] [place] [address] Dr. Delta Flynn MCV (RBC) [Entitic vol] 78.0 fL Critically low 81.0-99.0 [facility] Comment on above: Performed By: #### C BC #### [facility] [address] [place] [address] Dr. Delta Flynn MONO # 0.5 103/ul Normal 0.3-0.8 [facility] Comment on above: Performed By: #### C BC #### [facility] [address] [place] [address] Dr. Delta Flynn Monocytes/100 WBC (Bld) 7.0 % Normal 1.7-12.0 [facility] Comment on above: Performed By: #### C BC #### [facility] [address] [place] [address] Dr. Delta Flynn NEUT # 3.0 103/ul Normal 1.4-6.5 [facility] Comment on above: Performed By: #### C BC #### [facility] [address] [place] [address] Dr. Delta Flynn Neutrophils/100 WBC (Bld) 42.5 % Critically low 43.0-75.0 [facility] Comment on above: Performed By: #### C BC #### [facility] [address] [place] [address] Dr. Delta Flynn Platelet mean volume (Bld) [Entitic vol] 8.8 fL Critically low 9.5-13.5 [facility] Comment on above: Performed By: #### C BC #### [facility] [address] [place] [address] Dr. Delta Flynn PLT 323 103/ul Normal 150-450 [facility] Comment on above: Performed By: #### C BC #### [facility] [address] [place] [address] Dr. Delta Flynn RBC 4.78 106/ul Normal 4.20-5.40 [facility] Comment on above: Performed By: #### C BC #### [facility] [address] [place] [address] Dr. Delta Flynn WBC 7.0 103/ul Normal 4.0-11.0 [facility] Comment on above: Performed By: #### C BC #### [facility] [address] [place] [address] Dr. Delta Flynn FREE T3on 11-17-2022 FREE T3 3.03 pg/mlL Normal 2.18-3.98 [facility] Comment on above: Performed By: #### T SH, FT3, CMP #### [facility] [address] [place] [address] Dr. Delta Flynn FREE T4on 11-17-2022 Free T4 [Mass/Vol] 1.27 ng/dL Normal 0.76-1.46 [facility] Comment on above: Performed By: #### F T4 #### [facility] [address] [address] [address] Delta Flynn PROF 14(COMP METB)on 023 Albumin [Mass/Vol] 3.3 g/dL Critically low 3.4-5.0 [facility] Comment on above: Performed By: #### T SH, FT3, CMP #### [facility] [address] [address] [address] Dleta Flynn Albumin/Globulin [Mass ratio] 0.8 {ratio} Normal [facility] Comment on above: Performed By: #### T SH, FT3, CMP #### [facility] [address] [place] [address] Dr. Delta Flynn ALP [Catalytic activity/Vol] 77 U/L Normal 46-116 [facility] Comment on above: Performed By: #### T SH, FT3, CMP #### [facility] [address] [address] [address] Delta Flynn ALT [Catalytic activity/Vol] 35 U/L Normal 14-59 [facility] Comment on above: Performed By: #### T SH, FT3, CMP #### [facility] [address] [address] [address] Delta Flynn Anion gap [Moles/Vol] 9.0 mmol/L Normal [facility] Comment on above: Performed By: #### T SH, FT3, CMP #### [facility] [address] [address] [address] Delta Flynn AST [Catalytic activity/Vol] 29 U/L Normal 15-37 [facility] Comment on above: Performed By: #### T SH, FT3, CMP #### [facility] [address] [address] [address] Delta Flynn Bilirubin [Mass/Vol] 0.4 mg/dL Normal 0.2-1.0 [facility] Comment on above: Performed By: #### T SH, FT3, CMP #### [facility] [address] [place] [address] Dr. Delta Flynn Calcium [Mass/Vol] 9.0 mg/dL Normal 8.5-10.1 [facility] Comment on above: Performed By: #### T SH, FT3, CMP #### [facility] [address] [place] [address] Dr. Delta Flynn Chloride [Moles/Vol] 106 mmol/L Normal 98-107 [facility] Comment on above: Performed By: #### T SH, FT3, CMP #### [facility] [address] [place] [address] Dr. Delta Flynn CO2 [Moles/Vol] 31.8 mmol/L Normal 21.0-32.0 [facility] Comment on above: Performed By: #### T SH, FT3, CMP #### [facility] [address] [place] [address] Dr. Delta Flynn Creatinine [Mass/Vol] 0.62 mg/dL Normal 0.55-1.02 [facility] Comment on above: Performed By: #### T SH, FT3, CMP #### [facility] [address] [place] [address] Dr. Delta Flynn EGFR-AF UZBEK 60 mL/min/1.73m2 Normal >=60 [facility] Comment on above: Performed By: #### T SH, FT3, CMP #### [facility] [address] [place] [address] Dr. Delta Flynn EGFR-NON AF UZBEK 60 mL/min/1.73m2 Normal >=60 [facility] Comment on above: Performed By: #### T SH, FT3, CMP #### [facility] [address] [place] [address] Dr. Delta Flynn Globulin (S) [Mass/Vol] 4.0 g/dL Normal [facility] Comment on above: Performed By: #### T SH, FT3, CMP #### [facility] [address] [place] [address] Dr. Delta Flynn Glucose [Mass/Vol] 108 mg/dL Critically high 74-[address] [facility] Comment on above: Performed By: #### T SAI, FT3, CMP #### [facility] [address] [place] [address] Dr. Delta Flynn Potassium [Moles/Vol] 3.8 mmol/L Normal 3.5-5.1 [facility] Comment on above: Performed By: #### T SAI, FT3, CMP #### [facility] [address] [place] [address] Dr. Delta Flynn Protein [Mass/Vol] 7.3 g/dL Normal 6.4-8.2 [facility] Comment on above: Performed By: #### T SAI, FT3, CMP #### [facility] [address] [place] [address] Dr. Delta Flynn Sodium [Moles/Vol] 143 mmol/L Normal 136-145 [facility] Comment on above: Performed By: #### T SAI, FT3, CMP #### [facility] [address] [place] [address] Dr. Delta Flynn Urea nitrogen [Mass/Vol] 10.0 mg/dL Normal 7.0-18.0 [facility] Comment on above: Performed By: #### T SAI, FT3, CMP #### [facility] [address] [place] [address] Dr. Delta Flynn Urea nitrogen/Creatinine [Mass ratio] 16.1 mg/mg Normal [facility] Comment on above: Performed By: #### T SH, FT3, CMP #### [facility] [address] [place] [address] Dr. Delta Flynn TSHon 11-17-2022 TSH 1.120 uIU/mL Normal 0.358-3.740 [facility] Comment on above: Performed By: #### T SH, FT3, CMP #### [facility] [address] [place] [address] Dr. Delta Flynn [facility] SARS-CoV-2 (COVID-19) RNA SIMBA+probe Ql (Unsp spec) Not detected Normal NOT DETECTED [facility] Comment on above: Result Comment: When [...] for this test is supported by the [place] of Health and Human Service's declaration that [...] used). Performed By: #### C VDTB #### [facility] [address] [place] [address] Dr. Delta Flynn Covid-19 PCR (CVDTB)on 05-15 SARS-CoV-2 (COVID-19) RNA SIMBA+probe Ql (Unsp spec) Detected Critically abnormal NOT DETECTED [facility] Comment on above: Result Comment: This test is not yet approved or cleared by the [place] FDA. When there are no FDA-approved or cleared tests available, and other criteria are met, FDA can make tests available under an emergency access mechanism called an Emergency Use Authorization (EUA). The EUA for this test is supported by the [place] [employer] of Health and Human Service's declaration that [...] used). Performed By: #### C VDTBH #### [facility] [address] [place] [address] Dr. Delta Flynn Covid-19 PCR (CVDTBH)on SARS-CoV-2 (COVID-19) RNA SIMBA+probe Ql (Unsp spec) Not detected Normal NOT DETECTED [facility] Comment on above: Result Comment: When [...] for this test is supported by the [place] [employer] of Health and Human Service's declaration that [...] used). Performed By: #### C VDTB #### [facility] [address] [place] [address] Dr. Delta Flynn INFLUENZA A AND B AGon 12-[facility] Normal [facility] Comment on above: Result Comment: Nega tive for Flu A protein angiten. Infection due to Flu A cannot be ruled out. Flu A angiten in the sample may be below the detection limit of the test. Performed By: #### I NFLUAB #### [facility] [address] [place] [address] Dr. Delta Flynn INFLUBNEG SEE BELOW Normal [facility] Comment on above: Result Comment: Nega tive for Flu B protein antigen. Infection due to Flu B cannot be ruled out. Flu B antigen in the sample may be below the detection limit of the test. Performed By: #### I NFLUAB #### [facility] [address] [place] [address] Dr. Delta Flynn INFLUENZA A AG Negative Normal NEGATIVE SEE COMMENT [facility] Comment on above: Performed By: #### I NFLUAB #### [facility] [address] [address] [address] Delta Flynn INFLUENZA B AG Negative Normal NEGATIVE SEE COMMENT [facility] Comment on above: Performed By: #### I NFLUAB #### [facility] [address] [address] [address] Delta Flynn INTERNAL CONTROLS Within Normal Limits Normal Within N ormal Limits [facility] Comment on above: Performed By: #### I NFLUAB #### [facility] [address] [address] [address] Delta Flynn CNOVon 08-08-2021 CNOV Office Visit (GSPSMN) KARLA PEREZ ([id number]) 1990 F Date Time Provider Department 08/08/21 9:00 AM GILA LOPEZ [facility] During your visit today, we recorded the following information about you: Gila Lopez PSYD 08/08/2021 9:30 AM Signed [facility] Progress Note 08/08/2021 Billing code: John Patient did not attend, cancel, or reschedule this in person appointment. Gila Lopez Psy.D. Clinical Health Psychologist Referring Provider: GEORGE GOMEZ [[id number]] Allergies As of Date: 08/08/2021 (Not on File) Date Reviewed: 08/08/2021 Reviewed by: Gila Lopez PSYD - Fully Assessed Reason for Visit: No Show [1558] Primary Visit Diagnosis:NO SHOW Problem List As Of Date: 08/08/2021 (None) Encounter Status:Closed by GILA LOPEZ on 08/08/21 Normal [facility] Vital Signs Date Time Vital Sign Value Performing Clinician Henrique sebastian 10-25-2019 19:57-0500 BMI (Body Mass Index) 57.9 kg/m2 Max Pavlock [facility] 10-25-2019 19:57-0500 Body Temperature 98.1 [degF] [facility] 10-25-2019 19:57-0500 Body weight 157.85 kg [facility] 10-25-2019 19:57-0500 BP Diastolic 90 mm[Hg] [facility] 10-25-2019 19:57-0500 BP Systolic 144 mm[Hg] [facility] 10-25-2019 19:57-0500 Height 165.1 cm [facility] 10-25-2019 19:57-0500 Pulse (Heart Rate) 101 /min [facility] 10-25-2019 19:57-0500 Pulse Oximetry 93 % [facility] 10-25-2019 19:57-0500 Respiratory Rate 24 /min [facility] Encounters Encounter Date Encounter Type Care Provider Facility Start: 05-02-2024 End: 05-02-2024 Lab Drop off ANN MARIE A OSBALDO [facility] Start: 05-02-2024 End: 05-02-2024 ambulatory ANN MARIE A OSBALDO [place] [place]: 04-28-2024 End: 04-28-2024 ambulatory [facility]DO [facility] Start: 04-15-2024 End: 04-15-2024 ambulatory [facility] A OSBALDO [facility] Start: 04-09-2024 End: 04-10-2024 Pre-admission assessment ANN MARIE A OSBALDO [facility] Start: 03-27-2024 End: 03-27-2024 Lab Drop off ANN MARIE A OSBALDO [facility] Start: 03-27-2024 End: 03-27-2024 ambulatory ANN MARIE A OSBALDO [place] [place]: 03-18-2024 End: 03-18-2024 Lab Drop off ANN MARIE ROBLERO [facility] Start: 03-18-2024 End: 03-18-2024 ambulatory ANN MARIE ROBLERO [facility] Start: 12-04-2023 End: 12-04-2023 ambulatory Kael Chan Facility:[facility] Start: 11-17-2022 End: 11-18-[address] SHELLY VÁZQUEZ Facility:[facility] Start: 06-01-2022 End: 06-02-[address] SHELLY VÁZQUEZ Facility:[facility] Start: 05-27-2022 End: 05-27-[address] SHELLY VÁZQUEZ Facility:[facility] Start: 12-18-2021 End: 12-18-[address] SHELLY VÁZQUEZ Facility:H1 Start: 10-25-2019 End: 10-25-2019 Emergency department patient visit [facility] Procedures Date Procedure Procedure Detail Performing Clinician None (qualifier value) STEVIE ROBLERO Plan of Treatment Date Care Activity Detail Author Patient Education Otitis Media (ED) [facility] Patient referral [facility] Immunizations Immunization Date Immunization Notes Care Provider Fa [facility] 07-29-2020 influenza virus vaccine, unspecified formulation ANN MARIE ROBLERO [facility] 01-09-2019 hepatitis A vaccine, adult dosage ANN MARIE ROBLERO [facility] Payers Date Payer Category Payer Unknown [id number] 1990 Unknown [id number] 2.16.84 [id number] 1989 Unknown [id number] 2.16.84 [id number] 1989 Unknown [id number] 2.16.84 0.1.908420.3.579.2.593 1989 Unknown [id number] 2.16.84 0.1.412932.3.579.2.593 1989 Unknown [id number] 2.16.8 40.1.057950.3.579.2.727 1989 Unknown [id number] 2.16.8 40.1.778080.3.579.2.727 1989 Unknown [id number] 2.16.8 40.1.553699.3.579.2.727 1989 Unknown [id number] 2.16.8 40.1.450058.3.579.2.727 1989 Unknown [id number] 2.16.8 40.1.582911.3.579.2.727 1989 Unknown [id number] 2.16.8 40.1.754495.3.579.2.727 1989 Unknown [id number] 2.16.8 40.1.646640.3.579.2.727 1989 Unknown [id number] 2.16.8 40.1.569959.3.579.2.727 1989 Unknown [id number] 2.16.8 40.1.125784.3.579.2.727 1989 Unknown [id number] 2.16.8 40.1.816372.3.579.2.727 1959 Unknown [id number] Self-pay Self Pay [id number] Social History Date Type Detail Facility Start: 10-25-2019 End: 05-02-2024 Tobacco smoking status NHIS Never smoked tobacco (finding) [facility] Start: 1990 Sex Assigned At Female [facility] Tobacco smoking status Never [facility] Sex Assigned At Female [facility] Goals Date Patient Goal Desired Activity /State Clinical Note 05-02-2024 Note Date & Type Note Facility 05-02-2024 Note Patient Education Nephrology Potassium Content of Foods Potassium is a mineral found in many foods and drinks. It can affect how the heart works, affect blood pressure, and keep fluids and electrolytes balanced in the body. It is important not to have too much potassium (hyperkalemia) or too little potassium (hypokalemia) in the body, especially in the blood. Potassium is naturally found in many different types of whole foods, such as fruits, vegetables, meat, and dairy products. Processed foods tend to be lower in potassium. The amount of potassium you need each day depends on your age and any medical conditions you may have. General recommendations are: ? Females aged 19 and older: 2,600 mg per day. ? Males aged 19 and older: 3,400 mg per day. Talk with your health care provider or dietitian about how much potassium you need. What foods are high in potassium? Below are examples of foods that have greater than 200 mg of potassium per serving. Fruits ? [place] ? 1 medium (130 g) has 230 mg of potassium. ? Banana ? 1 medium (120 g) has 420 mg of potassium. ? Cantaloupe, chunks ? 1 cup (160 g) has 430 mg of potassium. Vegetables ? Potato, baked, without skin ? 1 medium (170 g) has 600 mg of potassium. ? Broccoli, chopped, cooked ? ? cup (77.5 g) has 230 mg of potassium. ? Tomato, chopped or sliced ? 1 cup (152 g) has 400 mg of potassium. Grains ? Cereal, bran with raisins ? 1 cup (59 g) has 360 mg of potassium. ? Granola with almonds ? ? cup (82 g) has 220 mg of potassium. Meats and other proteins ? Ground beef phillip ? 4 ounces (113 g) has 240 mg of potassium. ? Kidney beans, boiled ? ? cup (130 g) has 350 mg of potassium. ? Almonds ? 1 ounce (approximately 22 nuts or 28 g) has 200 mg of potassium. Dairy ? Cow's milk, 1% ? 1 cup (237 mL) has 360 mg of potassium. ? Plain vanilla low-fat yogurt ? ? cup (184 g) has 220 mg of potassium. The items listed above may not be a complete list of foods high in potassium. Actual amounts of potassium may be different depending on ripeness, shelf life, and food preparation. Contact a dietitian for more information. What foods are low in potassium? Below are examples of foods that have less than 200 mg of potassium per serving. Fruits ? Blueberries ? 1 cup (145 g) has 110 mg of potassium. ? Apple ? 1 medium (140 g) has 145 mg of potassium. ? Grapes ? 1 cup (160 g) has 175 mg of potassium. Vegetables ? Cabbage, raw ? 1 cup (70 g) has 120 mg of potassium. ? Cauliflower, chopped, cooked ? 1 cup (180 g) has 90 mg of potassium. ? Gerber lettuce, chopped ? 1 cup (56 g) has 120 mg of potassium. Grains ? Bagel, plain ? one 4-inch (10 cm) has 100 mg of potassium. ? Whole wheat bread ? 1 slice (26 g) has 70 mg of potassium. ? White rice, cooked ? 1 cup (163 g) has 50 mg of potassium. Meats and other proteins ? Tuna, light, canned in water ? 3 ounces (85 g) has 150 mg of potassium. ? Egg, fried ? 1 large (50 g) has 60 mg of potassium. ? Peanuts ?1 ounce (35 nuts or 28 g) has 180 mg of potassium. ? Tofu ? ? cup (252 g) has 150 mg of potassium. Dairy ? Cheese (cheddar, matt, mozzarella, or provolone) ? 1 ounce (28 g) has 30 to 40 mg of potassium. The items listed above may not be a complete list of foods that are low in potassium. Actual amounts of potassium may be different depending on ripeness, shelf life, and food preparation. Contact a dietitian for more information. Summary ? Potassium is a mineral found in many foods and drinks. It affects how the heart works, affects blood pressure, and keeps fluids and electrolytes balanced in the body. ? The amount of potassium you need each day depends on your age and any existing medical conditions you may have. ? Your health care provider or dietitian may recommend an amount of potassium that you should have each day. This information is not intended to replace advice given to you by your health care provider. Make sure you discuss any questions you have with your health care provider. Document Revised: 07/04/2022 Document Reviewed: 06/15/2022 [employer] Patient Education ? 2022 [employer]. [facility] Progress note 08-08-2021 Note Date & Type Note Facility 08-08-2021 Note HNO ID: [id number] Author: China Clark RD Service: ? Author Type: Registered Dietitian Type: Progress Notes Filed: 08/08/2021 1:04 PM Note Text: Patient did not show for nutrition appointment. China Clark MS, RD,GILES RIOJAS [facility] Clinical Note 08-08-2021 Note Date & Type Note Facility 08-08-2021 Note Education (GENBMI) KARLA PEREZ ([id number]) 1990 F Date Time Provider Department 08/08/21 12:30 PM CHINA CLARK Reason for Visit: No Show [[id number]] Progress Notes: China Clark RD 08/08/2021 1:04 PM Signed Patient did not show for nutrition appointment. China Clark MS, RD,SHINE,GILES Primary Visit Diagnosis:NO SHOW During your visit [...] Encounter Status:Closed by CHINA CLARK on 08/08/21 [facility] Progress note 08-08-2021 Note Date & Type Note Facility 08-08-2021 Note HNO ID: [id number] Author: Gila Lopez PSYD Service: ? Author Type: Physician Type: Progress Notes Filed: 08/08/2021 9:30 AM Note Text: [facility] Progress Note 08/08/2021 Billing code: John Patient did not attend, cancel, or reschedule this in person appointment. Gila Lopez Psy.D. Clinical Health Psychologist [facility] Evaluation + Plan note Note Date & Type Note Facility Evaluation + Plan note Future Appointments Appointment Date:04/15/2024 02:00:00 PM Scheduled Provider:ANN MARIE ROBLERO CNP Location:[facility] Appointment Type:[facility] Evaluation + Plan note Note Date & Type Note Facility Evaluation + Plan note Future Appointments Appointment Date:04/15/2024 01:40:00 PM Scheduled Provider:ANN MARIE ROBLERO CNP Location:[facility] Appointment Type:[facility] Evaluation + Plan note Note Date & Type Note Facility Evaluation + Plan note Future Appointments Appointment Date:05/05/2024 08:15:00 PM Scheduled Provider: Location:.SLEEP LAB_ Appointment Type:[employer] Sleep Study PSG () [facility] Hospital course Narrative Note Date & Type Note Facility Hospital course Narrative No data available for this section [facility] Hospital Discharge instructions Note Date & Type Note Facility Hospital Discharge instructions No data available for this section [facility] Progress note Note Date & Type Note Facility Progress note No data available for this section [facility] Advance Directives No Advanced Directives Records Found Advance Directive Response Recorded Date/ Time Advance Directives No April 15 9 2:41pm Chief Complaint and Reason for Visit Chief Complaint pain both ear; hack ing up green stuff Assessments No Assessments Information Available Summary Purpose Family History No Family History Records FoundNo Family History Records Found No data available for this section No Family History Records FoundNo Family History Records FoundNo Family History Records FoundNo Family History Records FoundNo Family History Records Found No data available for this section No data available for this section No data available for this section No data available for this section No Family History Records FoundNo Family History Records FoundNo Family History Records FoundNo Family History Records Found Additional Source Comments INFORMATION SOURCE (unrecogn ized section and content) DATE CREATED AUTHOR 11/21/2021 [facility] DATE CREATED AUTHOR AUTHOR'S ORGANIZ ATION 11/19/2022 [facility] DATE CREATED AUTHOR AUTHOR'S ORGANIZ ATION 03/20/2024 [facility] DATE CREATED AUTHOR AUTHOR'S ORGANIZ ATION 05/06/2024 [facility] DATE CREATED AUTHOR AUTHOR'S ORGANIZ ATION 05/08/2024 [facility] DATE CREATED AUTHOR AUTHOR'S ORGANIZ ATION 06/22/2024 [facility] Patient Care team informatio n (unrecognized section and content) Personnel Name: Kael Chan MD Address: Address: [address] [place] [address] Personnel Name: Kael Chan MD Address: Address: [address] [place] [address] No data available for this section Personnel Name: ANN MARIE ROBLERO CNP Address: Address: [address] [place] [address] Personnel Name: ANN MARIE ROBLERO CNP Address: Address: [address] [place] [address] FOR RECORDS PERTAINING TO PATIENTS WHO ARE [...] BE BASED ON THE PRIMARY CLINICAL RECORDS. [facility] [employer] [facility]. provides no warranty or guarantee of the accuracy or completeness of information in this document.
--- NOTE | 2024-08-26 01:34 | XR_ITS ---
The [address] [address] Patient Name: PABLO PEREZ MRN: [id number] date: 1990 Sex: F Assigned Patient Location: ER Current Patient Location: Accession/Order Number: [id number] Exam Date: 08/26/2024 01:40 Report Date: 08/26/2024 03:11 At the request of: RON MARKER Procedure: XR foot NILSON min 3V EXAM: XR foot NILSON min 3V HISTORY: b/l heel pain COMPARISON: None. TECHNIQUE: 3 views of right foot and 3 views of left foot obtained. FINDINGS: Bilateral foot films demonstrate normal mineralization. No acute fracture of right or left foot. No destructive bone lesion. No joint effusion is seen at ankle mortise. On the right, there is a plantar calcaneal enthesophyte. There is suggestion of some fascial thickening of the proximal plantar fascia on the right. No left-sided calcaneal enthesopathy. Normal appearing soft tissues XR/XR foot NILSON min 3V IMPRESSION: 1. Right foot plantar calcaneal enthesophyte with question of plantar fascial thickening. Correlate for acute on chronic right-sided fasciitis. This could be more definitively assessed with nonemergent outpatient right ankle MRI. 2. No significant left-sided calcaneal enthesopathy. 3. No acute bone or joint findings a right left foot or ankle. Electronically authenticated by: RASHAWN GUY Date: 08/26/2024 03:11
[2024-08-26] MEDS: IBUPROFEN 600 MG TABLET PO (02:04)
[2024-08-26 02:07] LABS: Basophils Absolute Auto 0.1 10^3/uL (0.0-0.1); Basophils Percent Auto 0.7 % (0.2-2.0); Eosinophils Absolute Auto 0.2 10^3/uL (0.0-0.7); Eosinophils Percent Auto 2.2 % (0.9-7.0); Hematocrit 41.3 % (36.0-48.0); Hemoglobin 13.5 g/dL (12.0-16.0); Immature Granulocytes Abs Auto 0.01 10^3/uL (0.00-0.03); Immature Granulocytes Pct Auto 0.1 % (0.0-0.5); Lymphocytes Absolute Auto 2.9 10^3/uL (1.2-3.8); Mean Corpuscular HGB Conc 32.7 g/dL (29.9-35.2); Mean Corpuscular Hemoglobin 27.7 pg (26.7-34.0); Mean Corpuscular Volume 84.8 fL (81.0-99.0); Mean Platelet Volume 9.5 fL (9.5-13.5); Monocytes Absolute Auto 0.6 10^3/uL (0.3-0.8); Neutrophils Absolute Auto 4.2 10^3/uL (1.4-6.5); Platelet Count 368 10^3/uL (150-450); Red Blood Count 4.87 10^6/uL (4.20-5.40); Red Cell Distribution Width 14.6 % (11.0-15.0)
[2024-08-26 02:16] LABS: Erythrocyte Sedimentation Rate 26 mm/hr (<=20)
[2024-08-26 02:24] LABS: Alanine Aminotransferase 26 U/L (14-59); Albumin Globulin Ratio 0.8; Albumin Level 3.5 g/dL (3.4-5.0); Alkaline Phosphatase 90 U/L (46-116); Anion Gap 13.5; Aspartate Amino Transferase 15 U/L (15-37); BUN Creatinine Ratio 12.5; Bilirubin Total 0.3 mg/dL (0.2-1.0); Calcium 9.5 mg/dL (8.5-10.1); Carbon Dioxide 30.5 mmol/L (21.0-32.0); Chloride 103 mmol/L (98-107); Estimated GFR (African America >60 (>=60 mL/min/1.73m^2); Estimated GFR (Non-African Ame >60 (>=60 mL/min/1.73m^2); Globulin 4.3 g/dL; Glucose 127 mg/dL (74-106); Sodium 144 mmol/L (136-145); Total Protein 7.8 g/dL (6.4-8.2)
[2024-08-26] MEDS: POTASSIUM CHLORIDE 10 MEQ ER TABLET 20 MEQ PO (02:43)
--- NOTE | 2024-08-26 02:51 | ED_ITS ---
HPI - Extremity Problem General Chief complaint: Extremity Problem, Nontraumatic Stated complaint: foot pain Time Seen by Provider: 08/26/24 01:13 Source: patient Mode of arrival: walk-in Limitations: no limitations History of Present Illness HPI Narrative: This 34-year-old female presents for evaluation of bilateral foot pain right greater than left. The patient has been diagnosed with neuropathy in the past. I asked her how that was diagnosed and she said that basically her warm her family physician just told her that she had neuropathy due to ongoing foot pain. She is morbidly obese but has never been diagnosed with diabetes. She is on water pills due to lower extremity swelling. She states that she is on gabapentin for pain and also on Suboxone and is not here seeking drugs. She states that her grandmother is admitted upstairs and since she is in the hospital overnight she thought she would come to the ER to get checked out. She denies any recent injury. She admits that her footwear is not ideal because she does not let have a lot of money and has to buy her shoes at [facility]. She does not have any calf pain or swelling. She has no chest pain or shortness of breath. Related Data Home Medications ?Medication ?Instructions ?Recorded ?Confirmed buprenorphine 8 mg-naloxone 2 mg 1 film buccal TID 10/27/23 01/31/24 sublingual film cyanocobalamin (vitamin B-12) 2,500 mcg PO DAILY 10/27/23 01/31/24 2,500 mcg sublingual tablet gabapentin 800 mg tablet 800 mg PO Q12H 10/27/23 01/31/24 levothyroxine 100 mcg tablet 100 mcg PO DAILY 10/27/23 01/31/24 venlafaxine 75 mg tablet 75 mg PO DAILY 01/31/24 01/31/24 Previous Rx's ?Medication ?Instructions ?Recorded gabapentin 800 mg tablet 800 mg PO BID 5 days #10 tabs 11/23/23 hydrochlorothiazide 25 mg tablet 25 mg PO DAILY #30 tabs 11/23/23 ketorolac 10 mg tablet 10 mg PO TID PRN pain #10 tabs 01/31/24 methocarbamol 750 mg tablet 750 mg PO TID PRN pain #20 tabs 01/31/24 Allergies Allergy/AdvReac Type Severity Reaction Status Date / Time No Known Drug Allergies Allergy Verified 08/26/24 01:12 Review of Systems ROS Status of ROS 10 or more systems reviewed and unremark able except as noted in history and below [facility] Social History Smoking status: Former smoker Little interest or pleasure in doing things: not at all Feeling down, depressed, or hopeless: not at all Exam Narrative Exam Narrative: Vital signs and Nursing Notes reviewed: Patient is afebrile with a normal pulse, blood pressure is elevated 155/94, she is not hypoxic with pulse ox of 96% on room air General: Awake, alert, oriented, morbidly obese female, no respiratory distress, she is ambulatory with a mild antalgic gait to the right HEENT: Normocephalic atraumatic, mucous membranes are moist and pink, eyes are clear, normal conjunctiva, vision is grossly intact Chest: Lungs are clear to auscultation with good air entry, there is no wheezing rhonchi or rales appreciated no accessory muscle use, patient is speaking in complete sentences-no chest wall tenderness to palpation CVS: Regular rate and rhythm S1-S2, no murmurs rubs or gallops, pulses are brisk and equal bilaterally Extremities: Patient's feet are extremely dry with calluses and a circular distribution around the entire foot. Pulses are normal. Sensation is intact. Patient has tenderness at the plantar aspect of both calcaneus, right greater than left. The bottom of the feet are red without any signs of cellulitis or infection. No tinea noted. Skin: Normal in appearance without rash,pallor, petechiae or purpura Neuro: No focal deficits Constitutional Vital Signs, click to edit/add: Last Vital Signs Temp 99.1 F 08/26/24 01:08 Pulse 98 H 08/26/24 01:08 Resp 18 08/26/24 01:08 BP 155/94 H 08/26/24 01:08 Pulse Ox 96 08/26/24 01:08 O2 Del Method Room Air 08/26/24 01:08 Course Vital Signs Vital signs: Vital Signs Temperature 99.1 F 08/26/24 01:08 Pulse Rate 98 H 08/26/24 01:08 Respiratory Rate 18 08/26/24 01:08 Blood Pressure 155/94 H 08/26/24 01:08 Pulse Oximetry 96 08/26/24 01:08 Oxygen Delivery Method Room Air 08/26/24 01:08 Temperature 99.1 F 08/26/24 01:08 Pulse Rate 98 H 08/26/24 01:08 Respiratory Rate 18 08/26/24 01:08 Blood Pressure 155/94 H 08/26/24 01:08 Pulse Oximetry 96 08/26/24 01:08 Oxygen Delivery Method Room Air 08/26/24 01:08 MDM - Extremity (Nontraumatic) MDM Narrative Medical decision making narrative: This 34-year-old female who is morbidly obese and has a history of chronic foot pain which has been diagnosed as neuropathy and is on gabapentin and also Suboxone presents for evaluation of ongoing foot pain which has been worse in the past several days causing her to limp. She denies any injury. There is no pain in her ankle, leg, knee or hip. She admits that her shoes are an issue for her because she cannot afford to buy well-fitting shoes with good support. She is wearing socks and plastic slides in the emergency department today. Her feet are warm and sensate. She does have extensive calluses confidentially around the outside of her feet and tenderness to both heels. X-ray was ordered and shows a heel spur on the right heel but no heel spur on the left. I had inquired as to why she was told she had neuropathy and asked her if she had diabetes. She states she has never been told she has diabetes but she does not know. Routine labs are ordered. She has a normal white count and hemoglobin. Electrolytes are normal with the exception of a potassium of 3. She has been told that she has hypokalemia in the past which is due to her diuretics. She has potassium supplementation at home but states she does not usually take it. Her CRP and ESR are elevated. Glucose is only minimally elevated that her CO2 is normal indicating she does not likely have diabetes. She was medicated with a dose of ibuprofen in the emergency department. In light of her bone spurs I suggested that she get some cushions for her heels and place them in her shoes to give her heels extra comfort. She will be discharged home with a prescription for ibuprofen and referral to [facility] podiatry. Lab Data Attestation: I reviewed the patient's lab results. Labs: Lab Results 08/26/24 Range/Units 02:00 WBC 8.0 (4.0-11.0) 10^3/uL RBC 4.87 (4.20-5.40) 10^6/uL Hgb 13.5 (12.0-16.0) g/dL Hct 41.3 (36.0-48.0) % MCV 84.8 (81.0-99.0) fL MCH 27.7 (26.7-34.0) pg MCHC 32.7 (29.9-35.2) g/dL RDW 14.6 (11.0-15.0) % Plt Count 368 (150-450) 10^3/uL MPV 9.5 (9.5-13.5) fL Neut % (Auto) 53.0 (43.0-75.0) % Lymph % (Auto) 36.0 (20.5-60.0) % Bibb % (Auto) 8.0 (1.7-12.0) % Eos % (Auto) 2.2 (0.9-7.0) % Baso % (Auto) 0.7 (0.2-2.0) % Neut # (Auto) 4.2 (1.4-6.5) 10^3/uL Lymph # (Auto) 2.9 (1.2-3.8) 10^3/uL Bibb # (Auto) 0.6 (0.3-0.8) 10^3/uL Eos # (Auto) 0.2 (0.0-0.7) 10^3/uL Baso # (Auto) 0.1 (0.0-0.1) 10^3/uL Abs Immat Gran (auto) 0.01 (0.00-0.03) 10^3/uL Imm/Tot Granulo (auto) 0.1 (0.0-0.5) % ESR 26 H (<=20) mm/hr Sodium 144 (136-145) mmol/L Potassium 3.0 L (3.5-5.1) mmol/L Chloride 103 (98-107) mmol/L Carbon Dioxide 30.5 (21.0-32.0) mmol/L Anion Gap 13.5 BUN 12.0 (7.0-18.0) mg/dL Creatinine 0.96 (0.55-1.02) mg/dL Est GFR ( Amer) >60 (>=60 mL/min/1.73m^2) Est GFR (Non-Af Amer) >60 (>=60 mL/min/1.73m^2) BUN/Creatinine Ratio 12.5 Glucose 127 H (74-106) mg/dL Calcium 9.5 (8.5-10.1) mg/dL Total Bilirubin 0.3 (0.2-1.0) mg/dL AST 15 (15-37) U/L ALT 26 (14-59) U/L Alkaline Phosphatase 90 (46-116) U/L C-Reactive Protein 1.90 H (<=0.50) mg/dL Total Protein 7.8 (6.4-8.2) g/dL Albumin 3.5 (3.4-5.0) g/dL Globulin 4.3 g/dL Albumin/Globulin Ratio 0.8 Discharge Plan Discharge Chief Complaint: Extremity Problem, Nontraumatic Clinical Impression: Peripheral neuropathy, Bone spur of foot, Hypokalemia Patient Disposition: Home, Self-Care Time of Disposition Decision: 02:38 Condition: Good Prescriptions / Home Meds: No Action buprenorphine-naloxone 8-2 mg film 1 film buccal TID gabapentin 800 mg tablet 800 mg PO Q12H cyanocobalamin (vitamin B-12) 2,500 mcg tablet, sublingual 2,500 mcg PO DAILY levothyroxine 100 mcg tablet 100 mcg PO DAILY hydrochlorothiazide 25 mg tablet 25 mg PO DAILY Qty: 30 0RF gabapentin 800 mg tablet 800 mg PO BID 5 Days Qty: 10 0RF venlafaxine 75 mg tablet 75 mg PO DAILY ketorolac 10 mg tablet 10 mg PO TID PRN (Reason: pain) Qty: 10 0RF methocarbamol 750 mg tablet 750 mg PO TID PRN (Reason: pain) Qty: 20 0RF Print Language: [place] Instructions: Hypokalemia (ED), Heel Spur (ED) Referrals: Physician,Non-Staff, MD [Primary Care Provider] - 1 week Discharge Date/Time: 08/26/24 02:45
== END 2024-08-26 02:45 | disposition home or self-care (01) ==
PROVIDERS: Emergency Provider Emergency Medicine
DX: E87.6 Hypokalemia (principal); M76.892 Other specified enthesopathies of left lower limb, excluding foot; M76.891 Other specified enthesopathies of right lower limb, excluding foot; G62.9 Polyneuropathy, unspecified
CPT/HCPCS: 36415; 73630; 80053; 85025; 85652; 86140; 99284

== ENCOUNTER 2024-09-03 11:27 | Outpatient (OUT) | payer OTHER, SELFPAY ==
--- OUTSIDE RECORDS SUMMARY | 2024-09-03 11:52 | XMS_ITS | CCD ---
Author Organization [facility] CliniSymd Care Team Providers Care Cloth Hand Name Role Phone George Gomez Primary Care [...] Consulting Unavailable Kael Chan Primary Care Physician ANN MARIE ROBLERO Primary Care Physician OSBALDO, ANN MARIE A Attending Unavailable OSBALDO, [...] (1 source) traMADol Drug Allergy 0 [facility] Repository (3 sources) No Known Medication Allergies; Translations: [No Known Medication Allergies] Propensity to adverse reactions (disorder) [facility] Repository Medications Current Medications Medication Drug Class(es) [...] Daily, # 135 tab(s), Refills(s) 1, Pharmacy: [facility], 161.7, cm, 05/02/24 10:56:00 EDT, Height/Length [...] Oral Daily October 25, 2019 7:49pm nystatin 074516 unt/ml topical cream (5 sources) Polyene Antifungal Start: 05-02-2024 nystatin To p 100,000 units/g Crm 15 gram Refill(s) 0, 15 gm, 0 Refill(s) Start Date: 05/02/24 Status: Ordered Start: 03-18-2024 nystatin Top 1 00,000 units/g Crm 15 gram 1 juli, Topical, BID, 15 gram, Refill(s) 0, [facility], 161.7, cm, 03/18/24 13:25:00 EDT, Height/Length [...] qWeek, # 2 mL, Refills(s) 0, Pharmacy: [facility], 161.7, cm, 03/18/24 13:25:00 EDT, Height/Length [...] Daily, # 90 tab(s), Refills(s) 0, Pharmacy: [facility], 161.7, cm, 03/27/24 11:17:00 EDT, Height/Length [...] te Episodic/Chronic Other aftercare (1 source) 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 Had it rechecked at [facility] 03/27/24- Potassium was 3.2 Was advised to cut her HTCZ in 1/2 at [facility] History of Present Illness Patient [...] qWeek, # 2 mL, Refills(s) 0, Pharmacy: [facility], 161.7, cm, 03/18/24 13:25:00 EDT, Height/Length [...] Daily, # 135 tab(s), Refills(s) 1, Pharmacy: [facility], 161.7, cm, 05/02/24 10:56:00 EDT, Height/Length Dosing, 156, kg, 05/02/24 10:56:00 EDT, Weight Dosing nystatin topical, 1 jlui, Topical, BID, 15 gram, Refill(s) 0, [facility], 161.7, cm, 03/18/24 13:25:00 EDT, Height/Length Dosing, 158, kg, 03/18/24 13:25:00 EDT, Weight Dosing Sleep Study Baseline Follow-up With When Contact Information ANN MARIE ROBLERO CNP, FAM Within [address] [place] [phone] Business (1) Additional Instructions: HTN Patient [...] A adult vaccine 01/09/2019 Recorded Normal Esp[facility] Comment on above: Result Comment: Elec tronically Signed By: ANN MARIE ROBLERO CNP\Date and Time Signed: 05/02/24 11:21 EDT Potassiumon 05-02-2024 Potassium [Moles/Vol] 3.6 mmol/L Normal 3.5-5.3 [facility] Comment on above: Performed By: #### 2 [id number] #### Alexis [facility] [address] [place] [address] Coding Summary.on 04-05-2024 Coding Summary. ELPRHvzq25EKp4nNx+PG hlYWQ+BI8WLREkH37djB HlfI5qR1UBRLxPFlacAJ JHCAkUApCblxLkJW8juD NjZXJu IC8+ZK0wWDXcIdxsaURu o2H7kKD5N38fok1yKNoh gQM7XGRtQkOpoclhb6py aLf2VOosTnzoHjQe LLGttT87GEL6iT73Xj72 dIVaxNVxk9gizLd9MiMt YQYqSOO7fRpsARxxw8Uh NRVbR20gyTEts2U1 IGNvbGxhcHNlOyBlbXB0 uV7mUDvdgnyye6hoxhcx Myf0nl67cALnv5C8dWB5 F5YmvkU8VEHtjWNk WcjduBAIaJ7iyvbmr9cb ruubMlKsUIJcJBf0YYo0 NTMiiAdfKtWkPX75UJY1 BGKnabFuM4KbJXKr cJeoOrD2e1I5Uv1NS2XP ZhmuQ8XXMFCNKUasxLT+ UU37kj03M3LnDdbbMne7 OLFsPZL2vPB9iQ7y YRLsQPupd2O4jCR2M1Pk anRtqw2yb2hyCVTuKDpu S81toQLda3R3CKNmlWL4 HZSazHdvCoFljF46 Oyc+WLAmfXwqb5QbKhbk y1igf6tshZl4VnpiEWPv kwCiuXpoAPR0w8FkNn7e PQOvbBK0hYA9tN3b LzJvUgF7DCoyY339IxXk dACoKpqeK25nO5BllMU+ ALEbPjx7GTGmrPhtBU4u Z0KfDBWsxtqhkWVv jTccIE9wRBJhwkhtWRJo fP2xNRDtU7l5FcVuTkD4 LTqfA6HvLIUjfkcqBl86 oW6qZoVtDsA6UKbw T9ItbeD4XRHmvHVfOVfl QLO2O61pt4S4ACRlSEUm UFD3qYB4mB6wvQegbgea bGVmdDsgdmVydGlj VCglIQjhQ724WOXwpChw PkNvZGluZyBEYXRlOiAg MDYvMjIvMjAyNDwvdGQ+ KNZkIDL1eNlcVMQz jKCpHJawRj9mvIiklKcl KO5pTHOreqhlMEIrtY9y XNVqnGVijTzrPK4jMBMb vnorz662QkPhLSI0 IKVcbHEoC0XlrI7lClYi AAHrJCMcN3RtxDWlVMaz S944DTpeFjI1LUJpjoQq T3UxGYKikIbsKuX4 z9S8Yl6Zg6RquzeuX8Hb cPKtHdJjPywaQIs9Z3Vq PjwvdHI+ML33CNNyHD13 WLd8MVY6kShaNSxd ENSiY1NitX3rKcWlXFDf ZGRkOyc+PHRhYmxlIHdp ZHRoPScxMDAlJyBzdHls DU1qJc6cTTWsWEBi bNeshUIuOhZhx9uwGVSq XPlaPP9pqFmwQ4TpgUS9 DWYoa8u9Dd90J94xQ1Pe dXA+XPLsbIL5aGC8 mG4cFrGgVgQ2SDhvY420 AqYamZHzTqfzd2exd7xn gBy5BuY6QZYxdaGbkWmn SLB3q1GyEn30E07s IHdpZHRoPSIxNSUiIHZh jZapdp7dmF2sJn3+PGNv vXG0jRW7pO8vWaKuUgM5 NAdiK095OfQkvXEs Xfeue5muf8zasRc9NrCx SHEevpPodKwoEHE4m8Bv Ze46F9VhkRsec5OmEdq6 ff10qXLyu2F7qXH5 X7VzRWHaqfhedNYlsRit NF7rNHRufnegERXbsO5f VGWwH9f9WfUkWyR6WYoh R5ZjboA2UWSyyAVu GYGajDBYnX9xdxrdh3db biisKpWuNORnXRa8XCp2 YBGcvNffHzSwZEU8SkS9 MYB2iCGsdU5wmQwu uzhvkO8bPzi+BRZ3pBWd wXZCHB2zYzsowQA+PHRk NCX7cYscCFiaKFTqiX4u VCPsZ3m6ZqLuJqG3 NBvbS6TeidE4KGIrdZUq AOVnfQXQyS2qlngvh3ed ctrkRsHeSLVuTGf8NGj4 LWFsaWduOiBsZWZ0 BnG0VGO4rRDogD5ltLiy uakfeQ1mSim+QmlydGgg CBT3GSi1P0WgMxe5WNOp rHrxVW8nnHFpBYjy Md4ivElaqSrzSY6qFYRw svddp895RmMwq8ylQFNz kGFaIDltPTS9B75kt5T9 UHVfDIAyCRT9eOB9 gN7ikSrfzyiocDPdcBfg tuDsvItwJCmeFHdtC220 HDVfjZgbOvPnIJt7S7Ny Ope0OFPbwPnoFN7e xNHjWHxdLl1epVtwjAgb ZV1tSIBtblljv669NwNh x4ejXNHazSAuTClbCYM6 S25dc7K5PIJgRJTp WIJ0cEW2mI2yuNvipgdd bGVmdDsgdmVydGljYWwt ERnsH573CPBpmGyiIgBb pRd1R7JxTlp5BYRl lFpoOP7eePUzVQewCh9r bVyqmKheBG9vHTRjstci p686ReAwt5dmBIFwrGTw IJllBNK8P49ct6Y2 HXAkLAHaNJL9kXT4aU7l bGlnbjogbGVmdDsgdmVy lOuhRHarDZbgC672EVMy cDsnPlBhdGllbnQg IEwhIMt8E5IlQjyqhSX+ EA99DOFwWE70wIBgrICl e7vbzZw1JsGkIPIwLQI1 lUcqCSblv7VcLCNb G89zgEAbd5Y0OCOoyLbp rVYzByWinDS6mH8bIHwb xhyri1qzmodwRgevp5bj js72zJ75A69rTPjr ZHRoPSIzMCUiIHZhbGln td9lrQ7bEs5+PGNvbCB3 fIY9dS4gQPAtBfH1FSge O715VbUaxUOcAwqa s9dlm7febWk7UcB5IVYp pcMqvRjwTMW5c0VcMv33 J53aCCbqZJNwHKYeWXAy IXOpgXrbny2yqU7d Ii8+AHTzySL0gMU5wR3n LhJuDvQ6DDzaS370IzIf mVFrIlkuE57pK1BqhWO+ ZEIwKfx3SRVjlMef QU0ilACqHZgyQc6cVQC0 NiBhPmMbARtgG5PrGSTv gtuqwaiwsBW7WDCzCXTk oQ72Dj7fqWayTKWc wQKTmR4mmrntj0qwrcib DeDgOMHqNSu0QWo5NPQb aHwnExRmHPO8RaJ7PIK8 zZEifS4kpLtqrwyp qA2nY0CoTVHlwgvePv10 gU9zSjMwWkA7TEpqRku+ TEVNQUlUUkUsIEFTSExJ VB07HH45mIHjf1N5 uXJ8L3XhUCOgtmsfiaxz aQI9XMUrOTMxmB52bOEq EIupDz4ft0D2w196JFRc QDCeyK26It4woFwy AQNdoUNLxN4qgrgzg8go wbxrTlVwVDDfWHk5UMi6 XAXqhXdiCwFiYRR6PsR1 XOB6rDYwvP0igXdy lbzfqK3wMqu+MDkvMTQv AUy1GOfxnGD+PHRkIHN0 nNquPOngFHInwB0hPTCj T0l0BiHnPaW7GQal W9TbREEqzhofSp10cF5q PdWcUuF6OEiwE4YgsfB1 DWYapDJbXIlwPBM6E32u a7P1FGMwMHQlMTG7 eDL8eY6lmKsgxzslhINq dDsgdmVydGljYWwtYWxp Q298PSLbrUwqYsM5NLje DZDaIR59ZF63tSXq r1G9qRA5U9UgYEEusofv eaxocPT3BKOfUDSbvV69 tQUcGKgdXx6ug9A8q891 ZQQwOKQbbU90Zm4a hXmmZQYlkXDChR3ekgau y9kqoepeMhWhYCQlTVd4 GHi6EVWuaMedCaLqLME4 OnY4CBY4nIEzbG4o pEladrtliA5kIsk+RmVt GRyjPR27AR11tKOmk1J9 vIH5I5WkFULxkebuivyn xRE8RSZpIGYniF83 hNKcFPfrHl2vl0H4l341 DDQdKOKgpB99Zj2cwKak YXLfiXMEpV1ehvcyj5il cjogIzAwMDAwMDt0 MOe8ZQSgxXuqLdGyKEL7 PyE2ITY5dHNucC0xcNom qpbplQ7vKqr+TGFiIERy l0Utp1RxYR06AD24 M0SsNmctiPGodLS+PHRh YmxlIHdpZHRoPScxMDAl WfCavXyqMO8oKm6nXXOu LWNvbGxhcHNlOiBj u7fsVOUrDUtnMG9hxVcs X3AupLU6MFIjf9r9Aa45 Q89kK0BzyFD+PGNvbCB3 bPO7aT8oDyWnOpV1 KCtaW361ZcPgwHCpMyes q5vgg6rhfFc3OiFaJLAk jbPlqMevHJP4c2AlIs20 F53tEPugYQOnUZUp OCXvTKPluKcizn0ruL6i Ii8+JQMncXA4oJA8aM5j UeWvEwR4TZkkV051YcVd bEWfVpmnS11uV0Ds dXA+DWCsYfz5ODRttXri YE5rbKDyGAzvNz9kHBC2 SzGpEaDdFLuyO8AwIJYr jqocroyntOW2YJWp ZNUgfX26Xc9vtVciGb7g PXZtOLA6QWJjjOSqQ2Dp iL4uKkBsVSTpLHCcJ7Mf oYFhUOjtF673OKfl JqF0VQKizxWmM3WxHZCy fIeuYjN1g5G3Wn2OqGxj yJPsPZ9oWyVxPXj6L9Ph Ywz3ZUSenHezSD8n dXYmDPycEa4dvQqevLsr SR8dBVKuwneir021YvCl h6udUFYkyOQaOPphYDE7 A84tm0N3YMPrFOJh EUA5nEC1nM5olDvycukv bGVmdDsgdmVydGljYWwt VFruG331YNHneIopEtGN Jag7L4EpGdk7FKKw xLycYZ9kfFLqHScbGt0l cMtxxUvvKA4kQJWaapoz p790ZoKuu7mgDAUxbLIt VVqeGJQ7O08dy0C8 STPrLBOlPSM7rWP4jT8j bGlnbjogbGVmdDsgdmVy cGkoYTkqWCcxW579WIJj zTxnEc4VTlt8Z9Ga Zjj8OTMzzRgoMH7tqMWc IEjiKu8nlHffdDzdGX0q XVFujnadm714RtSzu3yo IDEwcHQgVGltZXM7 C73eg9O9GFNrZCSsFYR8 jAU0rS0sjCyugavqjWRt dDsgdmVydGljYWwtYWxp C441XEAcpHlhOyMx eWVyOjwvdGQ+LB17re55 Z0IbJwkzAse8ZWHpTGD1 nEC9qK0zNKSbTUugw2D8 oHI2I7IdtsRjuy1h f7gxTGUxUPafP (more content not included)... [facility] Physician Orderon 04-01-2024 Physician Order [id number] 1#1.00TIFF [facility] Physician Orderon 03-31-2024 Physician Order [id number]# 1.00TIFF [facility] Ambulatory Visit Summaryon 0 03-27-2024 Ambulatory [...] EDT With: ANN MARIE ROBLERO CNP Where: [facility] Normal Body mass index [BMI] 60.0-69.9, adult, [...] choosing us for your care.\.br\ \.br\ Espinoza [facility] CHEMISTRYOrdered By: SYSTEM SYSTEM on 03-27-2024 Potassium [...] sleep study results Ordered: Lab Specimen Collect [id number] Sleep Study Baseline 2. Hypokalemia (E87.6: Hypokalemia) Patient to continue with Hydochlorothiazide 25 mg take 1/2 tablet po daily Awaiting K+ level Will consider changing medication to control B/P if there is not any improvement in the K+ level Ordered: Lab Specimen Collect 27160 Potassium Level 3. BMI 60.0-69.9, adult, (Z68.44: [...] at subsequent visits. Ordered: Lab Specimen Collect [id number] Potassium Level Sleep Study Baseline 4. Class [...] at subsequent visits. Ordered: Lab Specimen Collect [id number] Sleep Study Baseline 5. Nonsmoker (Z78.9: Other specified health status) Encouraged to continue as a non-smoker Ordered: Lab Specimen Collect [id number] Follow-up No qualifying data available Patient Education [...] to obtain (more content not included)... Normal [facility] Comment on above: Result Comment: Elec tronically [...] mg of potassium per serving. Fruits ? [place] ? 1 medium (130 g) has 230 [...] provider. Document Revised: 07/04/2022 Document Reviewed: 06/15/2022 [employer] Patient Education ? 2022 [employer] Normal [facility] Potassiumon 03-27-2024 Potassium [Moles/Vol] 3.2 mmol/L Low 3.5-5.3 [facility] Comment on above: Performed By: #### 2 [id number] #### [facility] [address] [place] [address] Physician Referralon 024 Physician Referral [id number] 7#1.00TIFF Normal [facility] Ambulatory Visit Summaryon 0 03-18-2024 Ambulatory Visit [...] With: ANN MARIE ROBLERO CNP Where: [facility] [place] Normal [facility] CBC w/ Auto Diffon 4 Basophils/100 WBC (Bld) 0.9 % Normal 0.0-2.0 [facility] Comment on above: Performed By: #### 2 [id number] #### [facility] [address] [place] [address] Basophils/Leukocyte s Auto (Bld) [Pure # fraction] 0.1 E9/L Normal 0.0-0.2 [facility] Comment on above: Performed By: #### 2 [id number] #### [facility] [address] [place] [address] Eosinophils (Bld) [#/Vol] 0.3 E9/L Normal 0.0-0.5 [facility] Comment on above: Performed By: #### 2 [id number] #### [facility] [address] [place] [address] Eosinophils/100 WBC (Bld) 3.7 % Normal 0.0-8.0 [facility] Comment on above: Performed By: #### 2 [id number] #### [facility] [address] [place] [address] Erythrocyte distribution width (RBC) [Ratio] 15.2 % High 10.9-14.2 [facility] Comment on above: Performed By: #### 2 [id number] #### [facility] [address] [place] [address] Hematocrit (Bld) [Volume fraction] 41.9 % Normal 34.0-46.0 [facility] Comment on above: Performed By: #### 2 [id number] #### [facility] [address] [place] [address] Hemoglobin (Bld) [Mass/Vol] 13.9 g/dL Normal 12.0-16.0 [facility] Comment on above: Performed By: #### 2 [id number] #### [facility] [address] [place] [address] Lymphocytes (Bld) [#/Vol] 2.4 E9/L Normal 1.0-4.0 [facility] Comment on above: Performed By: #### 2 613814 #### [facility] [address] [place] [address] Lymphocytes/100 WBC (Bld) 32.6 % Normal 14.0-50.0 [facility] Comment on above: Performed By: #### 2 [id number] #### [facility] [address] [place] [address] MCH (RBC) [Entitic mass] 28.0 pg Normal 27.0-34.0 [facility] Comment on above: Performed By: #### 2 [id number] #### [facility] [address] [place] [address] MCHC (RBC) [Mass/Vol] 33.1 g/dL Normal 31.4-36.0 [facility] Comment on above: Performed By: #### 2 112245 #### [facility] [address] [place] [address] MCV (RBC) [Entitic vol] 84.6 fL Normal 80.0-100.0 [facility] Comment on above: Performed By: #### 2 781677 #### [facility] [address] [place] [address] Monocytes (Bld) [#/Vol] 0.6 E9/L Normal 0.2-1.0 [facility] Comment on above: Performed By: #### 2 704349 #### [facility] [address] [place] [address] Neutrophils (Bld) [#/Vol] 4.0 E9/L Normal 2.0-7.5 [facility] Comment on above: Performed By: #### 2 [id number] #### [facility] [address] [place] [address] Neutrophils/100 WBC (Bld) 54.3 % Normal 36.0-75.0 [facility] Comment on above: Performed By: #### 2 632880 #### [facility] [address] [place] [address] Platelet mean volume (Bld) [Entitic vol] 8.2 fL Normal 6.4-10.8 [facility] Comment on above: Performed By: #### 2 851235 #### [facility] [address] [place] [address] Platelets (Bld) [#/Vol] 386.0 E9/L Normal 150.0-500.0 [facility] Comment on above: Performed By: #### 2 [id number] #### [facility] [address] [place] [address] RBC (Bld) [#/Vol] 5.0 E12/L Normal 4.3-5.9 [facility] Comment on above: Performed By: #### 2 996121 #### [facility] [address] [place] [address] WBC corrected for nucl RBC Auto (Bld) [#/Vol] 7.3 E9/L Normal 4.0-11.0 [facility] Comment on above: Performed By: #### 2 [id number] #### [facility] [address] [place] [address] CHEMISTRYOrdered By: SYSTEM SYSTEM on 03-18-2024 Albumin [...] (Bld) [Mass fraction] 5.7 % Normal <=5.9% [facility] ChemAutoSS CMPon 03-18-2024 Albumin [Mass/Vol] 4.0 g/dL Normal 3.3-5.0 [facility] Comment on above: Performed By: #### 2 [id number] #### [facility] [address] [place] [address] Albumin/Globulin (S) [Mass conc ratio] 1.1 Normal 1.1-2.2 [facility] Comment on above: Performed By: #### 2 [id number] #### [facility] [address] [place] [address] ALP [Catalytic activity/Vol] 73 Int._Unit/L Normal 21-98 [facility] Comment on above: Performed By: #### 2 238361 #### [facility] [address] [place] [address] ALT No additional P-5'-P [Catalytic activity/Vol] 23 Int._Unit/L Normal 6-46 [facility] Comment on above: Performed By: #### 2 728785 #### [facility] [address] [place] [address] Anion gap [Moles/Vol] 12 mmol/L Normal 6-16 [facility] Comment on above: Performed By: #### 2 478976 #### [facility] [address] [place] [address] AST [Catalytic activity/Vol] 22 Int._Unit/L Normal 5-43 [facility] Comment on above: Performed By: #### 2 407720 #### [facility] [address] [place] [address] Bilirubin [Mass/Vol] 0.5 mg/dL Normal 0.0-1.1 [facility] Comment on above: Performed By: #### 2 233663 #### [facility] [address] [place] [address] Calcium [Mass/Vol] 9.0 mg/dL Normal 8.9-11.1 [facility] Comment on above: Performed By: #### 2 060034 #### [facility] [address] [place] [address] Chloride [Moles/Vol] 101 mmol/L Normal 101-111 [facility] Comment on above: Performed By: #### 2 168359 #### [facility] [address] [place] [address] CO2 [Moles/Vol] 30 mmol/L Normal 21-31 [facility] Comment on above: Performed By: #### 2 [id number] #### [facility] [address] [place] [address] Creatinine [Mass/Vol] 0.6 mg/dL Normal 0.5-1.3 [facility] Comment on above: Performed By: #### 2 982148 #### [facility] [address] [place] [address] Globulin (S) [Mass/Vol] 3.7 g/dL Normal 1.4-4.0 [facility] Comment on above: Performed By: #### 2 636450 #### [facility] [address] [place] [address] Glucose [Mass/Vol] 102 mg/dL Normal 55-199 [facility] Comment on above: Performed By: #### 2 [id number] #### [facility] [address] [place] [address] Potassium [Moles/Vol] 3.2 mmol/L Low 3.5-5.3 [facility] Comment on above: Performed By: #### 2 602178 #### [facility] [address] [place] [address] Protein [Mass/Vol] 7.7 g/dL Normal 6.0-7.8 [facility] Comment on above: Performed By: #### 2 891654 #### [facility] [address] [place] [address] Sodium [Moles/Vol] 140 mmol/L Normal 135-145 [facility] Comment on above: Performed By: #### 2 [id number] #### [facility] [address] [place] [address] Urea nitrogen [Mass/Vol] 9 mg/dL Normal 5-21 [facility] Comment on above: Performed By: #### 2 [id number] #### [facility] [address] [place] [address] Urea nitrogen/Creatinine [Mass ratio] 15 No Units Normal 10-20 [facility] Comment on above: Performed By: #### 2 022521 #### [facility] [address] [place] [address] Family Medicine Office/Clini c Noteon 03-18-2024 Family [...] 5-7x/week Discussed portion control Will refer to tissue technician Start semaglutide, 0.25 mg, SubCutaneous weekly f/u 4 weeks Ordered: semaglutide, 0.25 mg, SubCutaneous, qWeek, # 2 mL, Refills(s) 0, Pharmacy: [facility] 161.7, cm, 03/18/24 13:25:00 EDT, Height/Length Dosing, 158, kg, 03/18/24 13:25:00 EDT, Weight Dosing Body Mass Index (BMI) documented 3008F CBC w/ Auto Diff Comprehensive Metabolic Panel Current tobacco non-user 1036F Depression Screening Negative 3352F [facility] Internal Ambulatory Referral HgbA1c Lab Specimen Collect 12456 Lipid Panel Most recent diastolic blood pressure 80-89 mm Hg 3079F Systolic BP 130-139 mm Hg (Most Recent) 3075F TSH With T4fr Reflex 2. Yeast infection of the skin (B37.2: Candidiasis of skin and nail) Cleanse the umbilicus BID Apply nystatin topical BID to the area f/u in 4 weekd Ordered: nystatin topical, 1 juli, Topical, BID, 15 gram, Refill(s) 0, [facility], 161.7, cm, 06 (more content not included)... Normal [facility] Comment on above: Result Comment: Elec tronically [...] Normal 4.0 - 11.0 E9/L Remisol Heme [id number] 03-18-2024 HbA1c (Bld) [Mass fraction] 5.7 % Normal <=5.9 [facility] Comment on above: Performed By: #### 7 [id number] #### [facility] [address] [place] [address] Lipid Panelon 03-18-2024 Cholesterol [Mass/Vol] 168 mg/dL Normal 120-200 [facility] Comment on above: Performed By: #### [id number] #### [facility] [address] [place] [address] Cholesterol in HDL [Mass/Vol] 45 mg/dL Invalid Interpretation Code [facility] Comment on above: Result Comment: '>= 60 LOW RISK' '<= 40 HIGH RISK' Performed By: #### [id number] #### [facility] [address] [place] [address] Cholesterol in LDL [Mass/Vol] 107 mg/dL Normal <=129 [facility] Comment on above: Performed By: #### [id number] #### [facility] [address] [place] [address] Cholesterol in VLDL [Mass/Vol] 25 mg/dL Normal 7-40 [facility] Comment on above: Performed By: #### [id number] #### [facility] [address] [place] [address] Triglyceride [Mass/Vol] 123 mg/dL Normal <=149 [facility] Comment on above: Performed By: #### [id number] #### [facility] [address] [place] [address] Patient Educationon 03-18-20 24 Patient Education Infectious [...] instructions at home: ? Take or apply soop-fuw-ynubnbh and prescription medicines only as told by [...] on the skin. ? Take or apply ycqa-rhw-nkjwtis and prescription medicines only as told by [...] provider. Document Revised: 12/20/2021 Document Reviewed: 12/20/2021 [employer] Patient Education ? 2022 [employer] Normal [facility] TSH With T4fr Reflexon 03-18 TSH Qn 1.14 m[IU]/L Normal 0.34-5.60 [facility] Comment on above: Performed By: #### 1 [id number] #### [facility] [address] [place] [address] eGFRon 03-18-2024 eGFR 120 mL/min/1.73 m2 Normal >=59 [facility] Comment on above: Order Comment: Order added by Discern Expert. Performed By: #### 1 [id number] #### [facility] [address] [place] [address] CBC AUTO DIFFon 11-17-2022 BASO # 0.1 103/ul Normal 0.0-0.1 [facility] Comment on above: Performed By: #### C BC #### [facility] [address] [address] [address] Delta Flynn Basophils/100 WBC (Bld) 1.1 % Normal 0.2-2.0 [facility] Comment on above: Performed By: #### C BC #### [facility] [address] [address] [address] Delta Flynn EO # 0.6 103/ul Normal 0.0-0.7 [facility] Comment on above: Performed By: #### C BC #### [facility] [address] [place] [address] Dr. Delta Flynn Eosinophils/100 WBC (Bld) 8.8 % Critically high 0.9-7.0 [facility] Comment on above: Performed By: #### C BC #### [facility] [address] [address] [address] Delta Flynn Erythrocyte distribution width (RBC) [Ratio] 14.0 % Normal 11.0-15.0 [facility] Comment on above: Performed By: #### C BC #### [facility] [address] [place] [address] Dr. Delta Flynn Hematocrit (Bld) [Volume fraction] 37.3 % Normal 36.0-48.0 [facility] Comment on above: Performed By: #### C BC #### [facility] [address] [address] [address] Delta Flynn Hemoglobin (Bld) [Mass/Vol] 13.1 g/dL Normal 12.0-16.0 [facility] Comment on above: Performed By: #### C BC #### [facility] [address] [place] [address] Dr. Delta Flynn IG # 0.01 10e3/ul Normal 0.00-0.03 [facility] Comment on above: Performed By: #### C BC #### [facility] [address] [place] [address] Dr. Delta Flynn IG % 0.1 % Normal 0.0-0.5 [facility] Comment on above: Performed By: #### C BC #### [facility] [address] [place] [address] Dr. Delta Flynn LYMPH # 2.9 103/ul Normal 1.2-3.8 [facility] Comment on above: Performed By: #### C BC #### [facility] [address] [place] [address] Dr. Delta Flynn Lymphocytes/100 WBC (Bld) 40.5 % Normal 20.5-60.0 [facility] Comment on above: Performed By: #### C BC #### [facility] [address] [place] [address] Dr. Delta Flynn MANUAL DIFF REQ NO Normal [facility] Comment on above: Performed By: #### C BC #### [facility] [address] [place] [address] Dr. Delta Flynn MCH (RBC) [Entitic mass] 27.4 pg Normal 26.7-34.0 [facility] Comment on above: Performed By: #### C BC #### [facility] [address] [place] [address] Dr. Delta Flynn MCHC (RBC) [Mass/Vol] 35.1 g/dL Normal 29.9-35.2 [facility] Comment on above: Performed By: #### C BC #### [facility] [address] [place] [address] Dr. Delta Flynn MCV (RBC) [Entitic vol] 78.0 fL Critically low 81.0-99.0 [facility] Comment on above: Performed By: #### C BC #### [facility] [address] [place] [address] Dr. Delta Flynn MONO # 0.5 103/ul Normal 0.3-0.8 [facility] Comment on above: Performed By: #### C BC #### [facility] [address] [place] [address] Dr. Delta Flynn Monocytes/100 WBC (Bld) 7.0 % Normal 1.7-12.0 [facility] Comment on above: Performed By: #### C BC #### [facility] [address] [place] [address] Dr. Delta Flynn NEUT # 3.0 103/ul Normal 1.4-6.5 [facility] Comment on above: Performed By: #### C BC #### [facility] [address] [place] [address] Dr. Delta Flynn Neutrophils/100 WBC (Bld) 42.5 % Critically low 43.0-75.0 [facility] Comment on above: Performed By: #### C BC #### [facility] [address] [place] [address] Dr. Delta Flynn Platelet mean volume (Bld) [Entitic vol] 8.8 fL Critically low 9.5-13.5 [facility] Comment on above: Performed By: #### C BC #### [facility] [address] [place] [address] Dr. Delta Flynn PLT 323 103/ul Normal 150-450 [facility] Comment on above: Performed By: #### C BC #### [facility] [address] [place] [address] Dr. Delta Flynn RBC 4.78 106/ul Normal 4.20-5.40 [facility] Comment on above: Performed By: #### C BC #### [facility] [address] [place] [address] Dr. Delta Flynn WBC 7.0 103/ul Normal 4.0-11.0 [facility] Comment on above: Performed By: #### C BC #### [facility] [address] [place] [address] Dr. Delta Flynn FREE T3on 11-17-2022 FREE T3 3.03 pg/mlL Normal 2.18-3.98 [facility] Comment on above: Performed By: #### T SH, FT3, CMP #### [facility] [address] [place] [address] Dr. Delta Flynn FREE T4on 11-17-2022 Free T4 [Mass/Vol] 1.27 ng/dL Normal 0.76-1.46 [facility] Comment on above: Performed By: #### F T4 #### [facility] [address] [address] [address] Delta Flynn PROF 14(COMP METB)on 023 Albumin [Mass/Vol] 3.3 g/dL Critically low 3.4-5.0 Th e [facility] Comment on above: Performed By: #### T SH, FT3, CMP #### [facility] [address] [address] [address] Delta Flynn Albumin/Globulin [Mass ratio] 0.8 {ratio} Normal [facility] Comment on above: Performed By: #### T SH, FT3, CMP #### [facility] [address] [place] [address] Dr. Delta Flynn ALP [Catalytic activity/Vol] 77 U/L Normal 46-116 [facility] Comment on above: Performed By: #### T SH, FT3, CMP #### [facility] [address] [address] [address] Delta Flynn ALT [Catalytic activity/Vol] 35 U/L Normal 14-59 [facility] Comment on above: Performed By: #### T SH, FT3, CMP #### [facility] [address] [address] [address] Delta Flynn Anion gap [Moles/Vol] 9.0 mmol/L Normal [facility] Comment on above: Performed By: #### T SH, FT3, CMP #### [facility] [address] [address] [address] Delta Flynn AST [Catalytic activity/Vol] 29 U/L Normal 15-37 [facility] Comment on above: Performed By: #### T SH, FT3, CMP #### [facility] [address] [address] [address] Delta Flynn Bilirubin [Mass/Vol] 0.4 mg/dL Normal 0.2-1.0 [facility] Comment on above: Performed By: #### T SH, FT3, CMP #### [facility] [address] [place] [address] Dr. Delta Flynn Calcium [Mass/Vol] 9.0 mg/dL Normal 8.5-10.1 [facility] Comment on above: Performed By: #### T SH, FT3, CMP #### [facility] [address] [place] [address] Dr. Delta Flynn Chloride [Moles/Vol] 106 mmol/L Normal 98-107 [facility] Comment on above: Performed By: #### T SH, FT3, CMP #### [facility] [address] [place] [address] Dr. Delta Flynn CO2 [Moles/Vol] 31.8 mmol/L Normal 21.0-32.0 [facility] Comment on above: Performed By: #### T SH, FT3, CMP #### [facility] [address] [place] [address] Dr. Delta Flynn Creatinine [Mass/Vol] 0.62 mg/dL Normal 0.55-1.02 [facility] Comment on above: Performed By: #### T SH, FT3, CMP #### [facility] [address] [place] [address] Dr. Delta Flynn EGFR-AF EGYPTIAN 60 mL/min/1.73m2 Normal >=60 [facility] Comment on above: Performed By: #### T SH, FT3, CMP #### [facility] [address] [place] [address] Dr. Delta Flynn EGFR-NON AF EGYPTIAN 60 mL/min/1.73m2 Normal >=60 [facility] Comment on above: Performed By: #### T SH, FT3, CMP #### [facility] [address] [place] [address] Dr. Delta Flynn Globulin (S) [Mass/Vol] 4.0 g/dL Normal [facility] Comment on above: Performed By: #### T SH, FT3, CMP #### [facility] [address] [place] [address] Dr. Delta Flynn Glucose [Mass/Vol] 108 mg/dL Critically high 74-106 T [facility] Comment on above: Performed By: #### T SAI, FT3, CMP #### [facility] [address] [place] [address] Dr. Delta Flynn Potassium [Moles/Vol] 3.8 mmol/L Normal 3.5-5.1 [facility] Comment on above: Performed By: #### T SAI, FT3, CMP #### [facility] [address] [place] [address] Dr. Delta Flynn Protein [Mass/Vol] 7.3 g/dL Normal 6.4-8.2 [facility] Comment on above: Performed By: #### T SAI, FT3, CMP #### [facility] [address] [place] [address] Dr. Delta Flynn Sodium [Moles/Vol] 143 mmol/L Normal 136-145 [facility] Comment on above: Performed By: #### T SAI, FT3, CMP #### [facility] [address] [place] [address] Dr. Delta Flynn Urea nitrogen [Mass/Vol] 10.0 mg/dL Normal 7.0-18.0 [facility] Comment on above: Performed By: #### T SAI, FT3, CMP #### [facility] [address] [place] [address] Dr. Delta Flynn Urea nitrogen/Creatinine [Mass ratio] 16.1 mg/mg Normal [facility] Comment on above: Performed By: #### T SH, FT3, CMP #### [facility] [address] [place] [address] Dr. Delta Flynn TSHon 11-17-2022 TSH 1.120 uIU/mL Normal 0.358-3.740 [facility] Comment on above: Performed By: #### T SH, FT3, CMP #### [facility] [address] [place] [address] Dr. Delta Flynn [facility]15 SARS-CoV-2 (COVID-19) RNA SIMBA+probe Ql (Unsp spec) Not detected Normal NOT DETECTED [facility] Comment on above: Result Comment: When [...] for this test is supported by the [place] of Health and Human Service's declaration that [...] used). Performed By: #### C VDTB #### [facility] [address] [place] [address] Dr. Delta Flynn Covid-19 PCR (CVD[facility])on 05-15 SARS-CoV-2 (COVID-19) RNA SIMBA+probe Ql (Unsp spec) Detected Critically abnormal NOT DETECTED [facility] Comment on above: Result Comment: This test is not yet approved or cleared by the [place] FDA. When there are no FDA-approved or cleared tests available, and other criteria are met, FDA can make tests available under an emergency access mechanism called an Emergency Use Authorization (EUA). The EUA for this test is supported by the [place] of Health and Human Service's declaration that [...] used). Performed By: #### C VDTBH #### [facility] [address] [place] [address] Dr. Delta Flynn Covid-19 PCR ([facility])on SARS-CoV-2 (COVID-19) RNA SIMBA+probe Ql (Unsp spec) Not detected Normal NOT DETECTED [facility] Comment on above: Result Comment: When [...] for this test is supported by the [place] of Health and Human Service's declaration that [...] used). Performed By: #### C VDTB #### [facility] [address] [place] [address] Dr. Delta Flynn INFLU[facility] 12[facility] Normal [facility] Comment on above: Result Comment: Nega tive for Flu A protein angiten. Infection due to Flu A cannot be ruled out. Flu A angiten in the sample may be below the detection limit of the test. Performed By: #### I NFLUAB #### [facility] [address] [place] [address] Dr. Delta Flynn INFLUBNEG SEE BELOW Normal [facility] Comment on above: Result Comment: Nega tive for Flu B protein antigen. Infection due to Flu B cannot be ruled out. Flu B antigen in the sample may be below the detection limit of the test. Performed By: #### I NFLUAB #### [facility] [address] [place] [address] Dr. Delta Flynn INFLUENZA A AG Negative Normal NEGATIVE SEE COMMENT [facility] Comment on above: Performed By: #### I NFLUAB #### [facility] [address] [address] [address] Delta Flynn INFLUENZA B AG Negative Normal NEGATIVE SEE COMMENT [facility] Comment on above: Performed By: #### I NFLUAB #### [facility] [address] [address] [address] Delta Flynn INTERNAL CONTROLS Within Normal Limits Normal Within N ormal Limits [facility] Comment on above: Performed By: #### I NFLUAB #### [facility] [address] [address] [address] Delta Flynn CNOVon 08-08-2021 CNOV Office Visit (GSPSMN) KARLA PEREZ ([id number]) 1990 F Date Time Provider Department 08/08/21 9:00 AM GILA LOPEZ [facility] During your visit today, we recorded the following information about you: Gila Lopez PSYD 08/08/2021 9:30 AM Signed [facility] Progress Note 08/08/2021 Billing code: John Patient did not attend, cancel, or reschedule this in person appointment. Gila Lopez Psy.D. Clinical Health Psychologist Referring Provider: GEORGE GOMEZ [[id number]] Allergies As of Date: 08/08/2021 (Not on File) Date Reviewed: 08/08/2021 Reviewed by: Gila Lopez PSYD - Fully Assessed Reason for Visit: No Show [1558] Primary Visit Diagnosis:NO SHOW Problem List As Of Date: 08/08/2021 (None) Encounter Status:Closed by GILA LOPEZ on 08/08/21 Normal [facility] Vital Signs Date Time Vital Sign Value Performing Clinician Henrique sebastian 10-25-2019 19:57-0500 BMI (Body Mass Index) 57.9 kg/m2 Max Pavlock [facility] 10-25-2019 19:57-0500 Body Temperature 98.1 [degF] [facility] 10-25-2019 19:57-0500 Body weight 157.85 kg [facility] 10-25-2019 19:57-0500 BP Diastolic 90 mm[Hg] [facility] 10-25-2019 19:57-0500 BP Systolic 144 mm[Hg] [facility] 10-25-2019 19:57-0500 Height 165.1 cm [facility] 10-25-2019 19:57-0500 Pulse (Heart Rate) 101 /min [facility] 10-25-2019 19:57-0500 Pulse Oximetry 93 % [facility] 10-25-2019 19:57-0500 Respiratory Rate 24 /min [facility] Encounters Encounter Date Encounter Type Care Provider Facility Start: 05-02-2024 End: 05-02-2024 Lab Drop off ANN MARIE A OSBALDO [facility] Start: 05-02-2024 End: 05-02-2024 ambulatory ANN MARIE A OSBALDO Facility:[facility] Start: 04-28-2024 End: 04-28-2024 ambulatory ANN MARIE A OSBALDO [facility] Start: 04-15-2024 End: 04-15-2024 ambulatory [facility] A [facility]BALDO [facility] Start: 04-09-2024 End: 04-10-2024 Pre-admission assessment ANN MARIE A OSBALDO [facility] Start: 03-27-2024 End: 03-27-2024 Lab Drop off ANN MARIE A OSBALDO [facility] Start: 03-27-2024 End: 03-27-2024 ambulatory ANN MARIE A OSBALDO Facility:[facility] Start: 03-18-2024 End: 03-18-2024 Lab Drop off ANN MARIE ROBLERO [facility] Start: 03-18-2024 End: 03-18-2024 ambulatory ANN MARIE ROBLERO [facility] Start: 12-04-2023 End: 12-04-2023 ambulatory Kael Chan Facility:[facility] Start: 11-17-2022 End: 11-18-[address] SHELLY VÁZQUEZ Facility:[facility] Start: 06-01-2022 End: 06-02-[address] SHELLY VÁZQUEZ Facility:[facility] Start: 05-27-2022 End: 05-27-[address] SHELLY VÁZQUEZ Facility:[facility] Start: 12-18-2021 End: 12-18-[address] SHELLY VÁZQUEZ Facility:[facility] Start: 10-25-2019 End: 10-25-2019 Emergency department patient visit [facility] Procedures Date Procedure Procedure Detail Performing Clinician None (qualifier value) STEVIE ROBLERO Plan of Treatment Date Care Activity Detail Author Patient Education Otitis Media (ED) [facility] Patient referral [facility] Immunizations Immunization Date Immunization Notes Care Provider [facility] 07-29-2020 influenza virus vaccine, unspecified formulation ANN MARIE ROBLERO [facility] 01-09-2019 hepatitis A vaccine, adult dosage ANN MARIE ROBLERO [facility] Payers Date Payer Category Payer Unknown [id number] 1990 Unknown [id number] 2.16.84 [id number] 1990 Unknown [id number] 2.16.84 [id number] 1990 Unknown [id number] 2.16.84 [id number] 1990 Unknown [id number] 2.16.84 [id number] 1990 Unknown [id number] 2.16.8 [id number] 1990 Unknown [id number] 2.16.8 [id number] 1990 Unknown [id number] 2.16.8 [id number] 1990 Unknown [id number] 2.16.8 [id number] 1989 Unknown [id number] 2.16.8 [id number] 1989 Unknown [id number] 2.16.8 [id number] 1989 Unknown [id number] 2.16.8 40.1.945781.3.579.2.727 1989 Unknown [id number] 2.16.8 [id number] 1989 Unknown [id number] 2.16.8 [id number] 1989 Unknown [id number] 2.16.8 40.1.477696.3.579.2.727 1960 Unknown [id number] Self-pay Self Pay [id number] Social History Date Type Detail Facility Start: 10-25-2019 End: 05-02-2024 Tobacco smoking status NHIS Never smoked tobacco (finding) [facility] Start: 1990 Sex Assigned At Female [facility] Tobacco smoking status Never [facility] Sex Assigned At Female [facility] Goals Date Patient Goal Desired Activity [...] mg of potassium per serving. Fruits ? [place] ? 1 medium (130 g) has 230 [...] provider. Document Revised: 07/04/2022 Document Reviewed: 06/15/2022 [employer] Patient Education ? 2022 [employer]. [facility] Progress note 08-08-2021 Note Date & Type Note Facility 08-08-2021 Note HNO ID: [id number] Author: China Clark RD Service: ? Author Type: Registered Dietitian Type: Progress Notes Filed: 08/08/2021 1:04 PM Note Text: Patient did not show for nutrition appointment. China Clark MS, RD,GILES RIOJAS [facility] Clinical Note 08-08-2021 Note Date & Type Note Facility 08-08-2021 Note Education (GENBMI) KARLA PEREZ ([id number]) 1990 F Date Time Provider Department 08/08/21 [...] Encounter Status:Closed by CHINA CLARK on 08/08/21 [facility] Progress note 08-08-2021 Note Date & Type Note Facility 08-08-2021 Note HNO ID: [id number] Author: Gila Lopez PSYD Service: ? Author Type: Physician Type: Progress Notes Filed: 08/08/2021 9:30 AM Note Text: [facility] Progress Note 08/08/2021 Billing code: John Patient did not attend, cancel, or reschedule this in person appointment. Gila Lopez Psy.D. Clinical Health Psychologist [facility] Evaluation + Plan note Note Date & Type Note Facility Evaluation + Plan note Future Appointments Appointment Date:04/15/2024 02:00:00 PM Scheduled Provider:ANN MARIE ROBLERO CNP Location:[facility] Appointment Type:[facility] Evaluation + Plan note Note Date & Type Note Facility Evaluation + Plan note Future Appointments Appointment Date:04/15/2024 01:40:00 PM Scheduled Provider:ANN MARIE ROBLERO CNP Location:[facility] Appointment Type:[facility] Evaluation + Plan note Note Date & Type Note Facility Evaluation + Plan note Future Appointments Appointment Date:05/05/2024 08:15:00 PM Scheduled Provider: Location:.SLEEP LAB_ Appointment Type:SITE ENGINEER Sleep Study PSG () [facility] Hospital course Narrative Note Date & Type Note Facility Hospital course Narrative No data available for this section [facility] Hospital Discharge instructions Note Date & Type Note Facility Hospital Discharge instructions No data available for this section [facility] Progress note Note Date & Type Note Facility Progress note No data available for this section [facility] Advance Directives No Advanced Directives Records [...] section and content) DATE CREATED AUTHOR 11/21/2021 [facility] DATE CREATED AUTHOR AUTHOR'S ORGANIZ ATION 11/19/2022 [facility] DATE CREATED AUTHOR AUTHOR'S ORGANIZ ATION 03/20/2024 [facility] DATE CREATED AUTHOR AUTHOR'S ORGANIZ ATION 05/06/2024 [facility] DATE CREATED AUTHOR AUTHOR'S ORGANIZ ATION 05/08/2024 [facility] DATE CREATED AUTHOR AUTHOR'S ORGANIZ ATION 06/22/2024 [facility] Patient Care team informatio n (unrecognized section and content) Personnel Name: Kael Chan MD Address: Address: [address] [place] [address] Personnel Name: Kael Chan MD Address: Address: [address] [place] [address] No data available for this section Personnel Name: ANN MARIE ROBLERO CNP Address: Address: [address] [place] [address] Personnel Name: ANN MARIE ROBLERO CNP Address: Address: [address] [place] [address] FOR RECORDS PERTAINING TO PATIENTS WHO ARE [...] BE BASED ON THE PRIMARY CLINICAL RECORDS. [facility] [employer] [facility]. provides no warranty or guarantee of the accuracy or completeness of information in this document.
== END 2024-09-03 11:28 | disposition home or self-care (01) ==
LOC: RAD 11:30
PROVIDERS: Visit Provider Podiatrist Foot & Ankle Surgery
DX: M79.671 Pain in right foot (principal)

== ENCOUNTER 2025-10-14 09:14 | Emergency (ER) | payer SELFPAY ==
[2025-10-14 09:27] VITALS: BP 143/72; PULSE 77; TEMP 36.7; O2SAT 97; BMI 58.1
--- OUTSIDE RECORDS SUMMARY | 2025-10-14 09:44 | XMS_ITS | Patient Health Record ---
Author Organization [facility] Address [address] [place], [place] [address] [id number] Care Team Providers Care It Infrastructure Consultant Name Role Phone Lexy Valerio Unavailable [phone] Allergies No Known Allergies Reason For Referral No Information Medications Medication SIG (Take, Route, Frequency, Duration) Notes Start Date End Date Status Levothyroxine Sodium 100 MCG Tablet Oral; Durati on: 30 Days ActiveBuprenorphine HCl-Naloxone HCl 8-2 MG FilmSublingual; Duration: 28 Days ActivehydroCHLOROthiazide 25 MG TabletOral; Duration: 30 DaysActive Social History Tobacco Use: Social History Observation Description Date Details (start date - stop date) Never Smoker NA - NA Social History Tobacco Use:Social InfoQuestionAnswerNotesTobacco Control (Standard)Tobacco use: NonsmokerAdditional Findings: Tobacco non-userCurrent nonsmoker Vital Signs Heart Rate 64 /min 02/25/2025 Height-cm165.1 cm02/25/2025lood pressure rjrsniazg54 mm Hg02/25/2025Weight-kg 158.76 kg02/25/20250419Otqpny0'5 in02/25/2025lood pressure xsuvpqba025 mm Hg 02/25/20252902Bvmsfu765 lbs02/25/2025BMI58.24 kg/m202/25/2025 Encounters Encounter Location Date Provider Diagnosis [facility] [address], [place] [id number] 02/25/2025 Lexy Valerio Encounter for dent al examination and cleaning with abnormal findings Z01.21 ; Necrosis of pulp K04.1 and Encounter for screening for dental disorders Z13.84 Assessments Encounter Date Diagnosis (ICD Code) Assessment Notes Treatment Notes Treatment Clinical Notes Section Notes 02/25/2025 Encounter for dental examination and cleaning with abnormal findings (ICD-10 - Z01.21) 02/25/2025Necrosis of pulp (ICD-10 - K04.1)02/25/2025Encounter for screening for dental disorders (ICD-10 - Z13.84) Plan Of Treatment No Information Insurance Providers Payer Name Payer Address Payer Phone Subscriber Number Group Number Insured Name Patient Relationship to Insured Coverage Start Date Coverage End Date [place] [id number] [place] [address] Ilya Reyes - patient is the insured Medical (General) History Medical History History ICD Code borderline diabetic high blood pressure
--- OUTSIDE RECORDS SUMMARY | 2025-10-14 09:44 | XMS_ITS | Patient Health Record ---
Author Organization [facility] [place] Address [address] [place] [address] Care Team Providers Care Soil Technician Name Role Phone None, Unknown or Primary Care Provider Unavailab Francisco J Iqbal Unavailable [phone] Allergies No Known Allergies Reason For Referral No Information Medications Medication SIG (Take, Route, Frequency, Duration) Notes Start Date End Date Status Buprenorphine HCl-Naloxone HCl 8-[address] JERAMY 1 film UNDER THE TONGUE THREE TIMES DAILY Sublingual; Duration: 28 Days ActiveGabapentin 800 MGTAKE 1 TABLET BY MOUTH IN THE MORNING and IN THE AFTERNOON, then TAKE 2 TABLETS BY MOUTH AT BEDTIMEOral; Duration: 30 daysActive hydroCHLOROthiazide 25 MGOral; Duration: 30 DaysActiveLevothyroxine Sodium 100 MCGOral; Duration: 30 DaysActivePotassium Chloride ER 10 MEQOral; Duration: 30 DaysActivedexAMETHasone Sodium Phosphate 4 MG/ML1.5ml - 2.5ml topically up to 3 times weekly with physical therapy iontophoresis; Duration: 30 09/03/2024 ActiveVenlafaxine HCl 75 MGTAKE 1 TABLET BY MOUTH DAILY Oral; Duration: 28 Days ActiveIbuprofen 600 MG1 tablet with food or milk as needed Orally four times a day; Duration: 30 09/03/2024ctivepredniSONE 10 MG3 tablets once a day for 3 days, 2 tablets once a day for 3 days, 1 tablet once a day for 3 days Orally; Duration: 9 days09/03/2024ctive Social History Tobacco Use: Social History Observation Description Date Details (start date - stop date) Never Smoker NA - NA Tobacco Control (Standard) Question Answer Notes Tobacco use: Nonsmoker Problems Problem Type SNOMED Code ICD Code Onset Dates Problem Status W/U Status Risk Notes Problem Plantar fascial fibr omatosis (08044005) Plantar fascial fibromatosis (M72.2) Activeconfirmed Plan Of Treatment No Information Insurance Providers Payer Name Payer Address Payer Phone Subscriber Number Group Number Insured Name Patient Relationship to Insured Coverage Start Date Coverage End Date [employer] [place] [employer] [address] [place] [id number] Ilya Denton - patient is the insured Medical (General) History Medical History History ICD Code history of substance abuse arthritisobesitythyroid diseasehypertension
--- OUTSIDE RECORDS SUMMARY | 2025-10-14 09:44 | XMS_ITS | Clinical Summary ---
Author Organization [facility] Address [address] [place] [address] Care Team Providers Care Welcome Wagon Hostess Name Role Phone George Gomez DO Unavailable [phone] Medications * This document contains information received from the source organization and may not represent a complete record from that organization. MedicationSigDispense QuantityRefillsLast FilledStart DateEnd DateStatus SUBOXONE 8-2 mg film DISSOLVE 1 & 1/2 films UNDER THE TONGUE EVERY DAY (DISSOLVE slowly, do not chew) 07/07/2021ctive ciprofloxacin HCl (CIPRO) 500 mg tablet Take 500 mg by mouth q 12 HR.04/19/2021ctive gabapentin (NEURONTIN) 800 mg tablet TAKE 1 TABLET BY MOUTH TWICE DAILY & TAKE 2 TABLETS AT EOKKNQU2007/13/2021ctive hydroCHLOROthiazide (HYDRODIURIL, ESIDRIX) 25 mg tablet Take 25 mg by mouth once daily.07/05/2021ctive levothyroxine (SYNTHROID) 100 mcg tablet 08/04/2021ctive meloxicam (MOBIC) 15 mg tablet Take 15 mg by mouth once daily.07/05/2021ctive ondansetron (ZOFRAN) 4 mg tablet Take 8 mg by mouth twice daily.06/07/2021ctive sulfamethoxazole-trimethoprim (BACTRIM DS,SEPTRA DS) 800-160 mg per tablet Take 1 tablet by mouth q 12 HR.06/07/2021ctive venlafaxine ER (EFFEXOR XR) 75 mg 24 hr capsule 08/04/2021ctive Active Problems No known active problems Social History Tobacco UseTypesPacks/DayYears UsedDateSmoking Tobacco: Never Assessed CommentsUnknownSex and Gender InformationValueDate RecordedSex Assigned at Not on fileLegal XpyOunqya78/10/2021 9:12 AM EDTGender IdentityNot on file Sexual OrientationNot on file Plan of Treatment Health MaintenanceDue DateLast DoneCommentsAnxiety Zrmpiaqtj39/14/2007Depression Wtagtlxfk07/14/2007HIV Najbixjki05/14/2007Hepatitis C Iitomddcn84/14/2007 DTaP,Tdap,Td Vaccine (1 - Tdap)2008Hepatitis B Vaccine (1 of 3 - 19+ 3- dose series)2008Cervical Cancer Upfbkkqhs61/14/2010HPV Vaccine (1 - 3-dose SCDM series)2016Covid-19 Vaccine (1 - 2024-26 season)2025Influenza Vaccine (#1)2025 Insurance Care Teams Team MemberRelationshipSpecialtyStart DateEnd Date George Gomez DO [address] [place] [id number] ReferringFamoly Medicine05/24/21
--- OUTSIDE RECORDS SUMMARY | 2025-10-14 09:44 | XMS_ITS | Clinical Summary ---
Author Organization [employer] [facility] Address [id number] [address] [place] [address] Care Team Providers Care Medical Field Representative Name Role Phone George Gomez DO Primary Care Provider [phone] Allergies No known active allergies Medications MedicationSigDispense QuantityRefillsLast FilledStart DateEnd DateStatus buprenorphine-naloxone (SUBOXONE) 8-2 mg film Dissolve 1.5 Film on tongue daily.Active levothyroxine (SYNTHROID, LEVOTHROID) 100 MCG tablet Take 100 mcg by mouth daily.Active cyanocobalamin 2000 MCG tablet Take 5,000 mcg by mouth daily.Active hydroCHLOROthiazide (MICROZIDE) 12.5 mg capsule Take 12.5 mg by mouth daily.Active meloxicam (MOBIC) 15 mg tablet Take 15 mg by mouth daily.Active venlafaxine (EFFEXOR) 75 mg tablet Take 75 mg by mouth 2 (two) times a day.Active gabapentin (NEURONTIN) 800 mg tablet Take 800 mg by mouth 3 (three) times a day.Active lidocaine (LIDODERM) 5 % Place 1 patch on the skin daily. Remove & Discard patch within 12 hours or as directed by MD 30 patch 08/10/2020Active Additional Information Patient not taking.Reported on 01/27/2021 Social History Tobacco UseTypesPacks/DayYears UsedDateSmoking Tobacco: NeverSmokeless Tobacco: NeverAlcohol UseStandard Drinks/WeekCommentsNever0 (1 standard drink = 0.6 oz pure alcohol)AUDIT-CAnswerDate RecordedQ1: How often do you have a drink containing alcohol?Never08/10/2020Average Number of DrinksNot on file08/10/2020 Frequency of Binge DrinkingNot on file08/10/2020ChildcareAnswerDate Recorded WmovuzjqlPfzxjob47/27/2020EmploymentAnswerDate RecordedEmploymentUnknown 08/10/2020Purpose - LifeAnswerDate RecordedPurpose and direction in lifeUnknown 1CommentsNoSex and Gender InformationValueDate RecordedSex Assigned at BirthNot on fileLegal SnsRyvidy85/06/2015 11:40 AM EDTGender IdentityNot on fileSexual OrientationNot on file Last Filed Vital Signs Vital SignReadingTime TakenCommentsBlood Jpsanalv669/7604 3:24 PM EDT Raaja5363 3:24 PM TZTHkrideblbad59.8 ??C (98.2 ??F)01/27/2021 3:24 PM EDTRespiratory Txgl6369 3:24 PM EDTOxygen Bfwvouatni32%01/27/2021 3:24 PM EDTInhaled Oxygen Concentration--Jxrlns129.6 kg (385 lb)01/27/2021 3:24 PM WLVBpfrpn684.1 cm (5' 5 )01/27/2021 3:24 PM EDTBody Mass Index64.0701/27/2021 3:24 PM EDT Plan of Treatment Health MaintenanceDue DateLast DoneCommentsDepression Qgyrcrmok88/14/2001Tobacco Dblfribaz58/14/2001Adult BMI Pajwsrrdd30/14/2007DTaP,Tdap and Td Vaccines (1 - Tdap)2008Pap Smear2010Influenza Qygvqhz40 [employer] Devices Not on file Insurance Care Teams Team MemberRelationshipSpecialtyStart DateEnd Date George Gomez DO PCP - GeneralFamily Pkzcczsa70/27/20
[2025-10-14 09:45] LABS: HCG Qualitative Urine* NEGATIVE (NEGATIVE)
--- OUTSIDE RECORDS SUMMARY | 2025-10-14 09:49 | XMS_ITS | CCD ---
Author Organization [facility] Care Team Providers Care Finisher Polisher Name Role Phone George Gomez Primary Care Provider Terry VÁZQUEZ, DR SHELLY Rae Primary Care Unavailable OLIVIA DEAN Attending Unavailable MELINA, DR LAY Consulting Unavailable OLIVIA DEAN Admitting Unavailable VÁZQUEZ, DR SHELLY Rae Primary Care Unavailable PAY, DR IRIZARRY Attending Unavailable PAY, DR IRIZARRY Admitting Unavailable GRECHNY, KARL WAGGONER Consulting Unavailable KATHIE, DR SHELLY Rae Primary Care Unavailable VÁZQUEZ, DR SHELLY Rae Consulting Unavailable VÁZQUEZ, DR SHELLY Rae Attending Unavailable VÁZQUEZ, DR SHELLY Rae Admitting Unavailable VÁZQUEZ, DR SHELLY Rae Primary Care Unavailable MARIAM ALFARO Attending Unavailable MARIAM ALFARO Admitting Unavailable MARIAM ALFARO Consulting Unavailable Kael Chan Primary Care Physician ANN MARIE ROBLERO Primary Care Physician [phone] OSBALDO, ANN MARIE A Attending Unavailable OSBALDO, [...] Unavailable OSBALDO, ANN MARIE A Admitting Unavailable Unavailable Unavailable Unavailable Allergies Allergy ClassificationReported Allergen(s)Allergy TypeDate of OnsetReaction(s) Facility (1 source)traMADolDrug Bmgslsq33-15-6740Hhu [facility] Repository (4 sources)No Known Medication Allergies; Translations: [No Known Medication Allergies]Propensity to adverse reactions (disorder)[facility] Repository Medications Current Medications MedicationDrug Class(es)DatesSig (Normalized)Sig (Original)amoxicillin 500 mg oral tablet (1 source)Penicillin-class AntibacterialStart: 86-44-0611biul 500 mg by mouth three times dailyAmoxicillin Active 500 MG Oral Three times daily October 25, 2019 8:07pmcobamamide 0.1 mg / vitamin b 12 5 mg sublingual tablet (1 source)Vitamin C26Njzwf: 01-63-0226jkfn 1 tablet under the tongue once daily Cyanocobalamin-Cobamamide Active 1 TAB Sublingual Daily October 25, 2019 7:49pmgabapentin 800 mg oral tablet (7 sources)Anti-epileptic AgentStart: 07-44-3696vrjs 1 tablet by mouth once daily in the morning, then take 2 tablets by mouth at bedtimegabapentin 800 mg Tab See Instructions, Take one orally every morning and afternoon and 2 at bedtime, # 120 cap(s), Refills(s) 0, Pharmacy: [facility], 161.7, cm, 05/02/24 10:56:00 EDT, Height/Length Dosing, 156, kg, 05/02/24 10:56:00 EDT, Weight Dosing Start Date: 08/11/24 Status: OrderedStart: 23-40-1113twak 1 tablet by mouth once daily in the morning, then take 2 tablets by mouth at bedtimegabapentin 800 mg Tab See Instructions, Take one orally every morning and afternoon and 2 at bedtime, Refills(s) 0 Start Date: 02/23/23 Status: OrderedStart: 24-94-2310sjsy 800 mg by mouth three times dailyGabapentin Active 800 MG Oral Three times daily October 25, 2019 7:49pmhydroCHLOROthiazide 25 mg oral tablet (6 sources)Thiazide DiureticStart: 66-07-4075lxgkrtjamklfhpnrrwf 25 mg Tab 12.5 mg = 0.5 tab(s), Oral, Daily, # 135 tab(s), Refills(s) 0, Pharmacy: [facility], 161.7, cm, 05/02/24 10:56:00 EDT, Height/Length Dosing, 156, kg, 05/02/24 10:56:00 EDT, Weight Dosing Start Date: 08/11/24 Status: Ordered Start: 96-15-2245wzcyetupmsczdafcqlh 25 mg Tab 12.5 mg = 0.5 tab(s), Oral, Daily, # 135 tab(s), Refills(s) 1, Pharmacy: [facility], 161.7, cm, 05/02/24 10:56:00 EDT, Height/Length Dosing, 156, kg, 05/02/24 10:56:00 EDT, Weight Dosing Start Date: 05/02/24 Status: OrderedStart: 39-29-1875lfrh 1 tablet by mouth once dailyhydrochlorothiazide 25 mg Tab 25 mg = 1 tab(s), Oral, Daily, Refills(s) 0 Start Date: 02/23/23 Status: Orderedibuprofen 800 mg oral tablet (1 source)Nonsteroidal Anti-inflammatory DrugStart: 85-34-3898zhby 800 mg by mouth three times dailyIbuprofen Active 800 MG Oral Three times daily October 25, 2019 8:07pmlevothyroxine sodium 0.1 mg oral tablet (7 sources)l-ThyroxineStart: 07-10-6824ojjk 1 tablet by mouth once daily levothyroxine 100 mcg (0.1 mg) Tab 100 mcg = 1 tab(s), Oral, Daily, # 90 tab(s), Refills(s) 0, Pharmacy: [facility], 161.7, cm, 05/02/24 10:56:00 EDT, Height/Length Dosing, 156, kg, 05/02/24 10:56:00 EDT, Weight Dosing Start Date: 08/11/24 Status: OrderedStart: 14-55-7185asyb 1 tablet by mouth once daily levothyroxine 100 mcg (0.1 mg) Tab 100 mcg = 1 tab(s), Oral, Daily, Refills(s) 0 Start Date: 02/23/23 Status: OrderedStart: 32-82-5640psti 100 ug by mouth once dailyLevothyroxine Active 100 MCG Oral Daily October 25, 2019 7:49pmmeloxicam 15 mg oral tablet (1 source)Nonsteroidal Anti-inflammatory DrugStart: 66-67-5389llyo 15 mg by mouth once dailyMeloxicam Active 15 MG Oral Daily October 25, 2019 7:49pm nystatin 310886 unt/ml topical cream (6 sources)Polyene AntifungalStart: 66-59-2344zcfdgafu Top 100,000 units/g Crm 15 gram Refill(s) 0, 15 gm, 0 Refill(s) Start Date: 05/02/24 Status: Ordered Start: 68-17-3644mwtprejw Top 100,000 units/g Crm 15 gram 1 juli, Topical, BID, 15 gram, Refill(s) 0, [facility], 161.7, cm, 03/18/24 13:25:00 EDT, Height/Length Dosing, 158, kg, 03/18/24 13:25:00 EDT,Weight Dosing Start Date: 03/18/24 Status: OrderedPotassium Chloride (4 sources)Start: 48-45-6585sfbs 1 tablet by mouth once dailyPotassium Chloride (Our-Iwfh-Ssm 10) 10 mEq oral tablet, extended release See Instructions, TAKE 1 TABLET BY MOUTH DAILY, # 90 tab(s), Refills(s) 0, Pharmacy: [facility], 161.7, cm, 05/02/24 10:56:00 EDT, Height/Length Dosing, 156, kg, 05/02/24 10:56:00 EDT, Weight Dosing Start Date: 08/11/24 Status: OrderedStart: 38-00-4668xnch 1 tablet by mouth once dailyPotassium Chloride (Eqv-K-Tab) 10 mEq oral tablet, extended release 10 mEq = 1 tab(s), Oral, Daily,# 90 tab(s), Refills(s) 0, Pharmacy: [facility], 161.7, cm, 03/27/24 11:17:00 EDT, Height/Length Dosing, 159.4, kg, 03/27/24 11:17:00 EDT, Weight Dosing Start Date: 03/28/24 Status: Orderedvitamin b12 2.5 mg sublingual tablet (6 sources)Vitamin V78Qzqle: 35-24-3412jfgq 2 tablets under the tongue once dailycyanocobalamin 2500 mcg sublingual tablet See Instructions, Take 2 sublingual daily, Refills(s) 0 Start Date: 02/23/23 Status: Ordered Completed/Discontinued Medications MedicationDrug Class(es)DatesSig (Normalized)Sig (Original)0.5 ML semaglutide 0.5 MG/ML Auto-Injector [Wegovy] (6 sources)Start: 38-92-0569Cfbfw: 51-54-4656rzdcfx 0.25 mg by subcutaneous injection every weekWegovy (0.25 mg dose) subcutaneous solution 0.25 mg, SubCutaneous, qWeek, # 2 mL, Refills(s) 0, Pharmacy: [facility], 161.7, cm, 03/18/24 13:25:00 EDT, Height/Length Dosing, 158, kg, 03/18/24 13:25:00 EDT, Weight Dosing Start Date: 03/18/24 Status: Orderedbuprenorphine 8 mg / naloxone 2 mg sublingual film (7 sources)Partial Opioid Agonist, Opioid AntagonistStart: 05-02-2024 buprenorphine-naloxone 8 mg-2 mg sublingual film Refill(s) 0, 84 EA, 0 Refill(s), DISSOLVE 1 film under the tongue THREE TIMES DAILY Start Date: 05/02/24 Status: OrderedStart: 17-63-0413Qshdhwlb 8 mg-2 mg sublingual film See Instructions, Refill(s) 0, 3 daily dissolved under the tongue Start Date: 03/18/24 Status: OrderedStart: 61-40-0079Xkwawjwaguisl-Naloxone Active 2 FILM Sublingual Daily October 25, 2019 7:49pmvenlafaxine 75 mg oral tablet (4 sources)Serotonin and Norepinephrine Reuptake InhibitorStart: 05-02-2024 venlafaxine 75 mg Tab 28 EA, 0 Refill(s), TAKE 1 TABLET BY MOUTH DAILY, Refills(s) 0 Start Date: 05/02/24 Status: OrderedStart: 29-94-2427dytb 75 mg by mouth once dailyVenlafaxine Active 75 MG Oral Daily October 25, 2019 7:49pm Problems Active Problems Problem ClassificationProblemDateDocumented DateEpisodic/ChronicAnxiety disorders (6 sources)Zsimynh90-27-0552GkrdyvpMbtzdx (6 sources)Mild intermittent wgprab08-94-1280MxximkoSkbzfvrwpq and other anemia (1 source)Other vitamin B12 deficiency anemias; Translations: [OTH VITAMIN B12 DEFICIENCY ANEMIAS]Onset: 52-22-1832SvrlqbjqRdnvvbftsk and other anemia (6 sources)Xywtom12-34-2980FadfbrjwXkuxssxcs hypertension (6 sources)Hypertensive gfepmwnh42-18-5616JyvhezpBrnukedj; including migraine (4 sources)Headache; including migraine; Translations: [HEADACHE UNSPECIFIED] Onset: 93-39-2584Vdazoxpin (6 sources)Nonalcoholic solvxapdcjetcto06-93-6919CtcjqzwDzovykrxm (1 source)Influenza due to other identified influenza virus with unspecified type of pneumonia; Translations:[FLU D/T OTH ID FLU VIR UNS TYPE PN]Onset: 61-58-4645HqceaztzEwbe disorders (6 sources)Single episode of major depression in full remission; Translations: [Major depressive disorder, single episode, in full remission]46-28-4853Kpsrpgc Nutritional deficiencies (6 sources)Cobalamin mohtbzlqxt75-64-1715PcllmfwqIqwvq nervous system disorders (1 source)Hereditary and idiopathic neuropathy, unspecified; Translations: [HEREDITARY IDIOPATH NEUROPATHY UNS]Onset: 33-00-0873RlfqjnjKybuh nervous system disorders (1 source)Other chronic pain; Translations: [OTHER CHRONIC PAIN]Onset: 12-60-1735RidhoonCvymz nervous system disorders (6 sources)Frxfaweuhv64-56-7868DeflipbWygmjif on above:hereditary and idiopathic Other nervous system disorders (1 source)Polyneuropathy; Translations: [Polyneuropathy, unspecified]Onset: 48-26-0369EiqjphcAwddo nutritional; endocrine; and metabolic disorders (1 source)Morbid (severe) obesity due to excess calories; Translations: [MORBID SEVERE OBES D/T EXCESS ABY]Onset: 82-95-4574ZykwjgiZsnwp nutritional; endocrine; and metabolic disorders (1 source)Body mass index (BMI) 50.0-59.9, adult; Translations: [BODY MASS INDEX BMI 50.0-59.9 ADULT]Onset: 69-95-2662WapqrbpUglly nutritional; endocrine; and metabolic disorders (6 sources)Morbid iaejzyn50-39-3682RzulhngStrknvvamoq; intervertebral disc disorders; other back problems (6 sources)Degeneration of lumbar intervertebral ectc85-42-3703VvcvuhqWqktjovqa- related disorders (6 sources)Narcotic drug azbg86-25-6582NlsoszzOlwamvw disorders (11 sources)Hypothyroidism, unspecified; Translations: [Hypothyroidism]Onset: 93-26-2451EnrmszdSarnazmlodcr (4 sources)CONTACT W/AND (SUSP) EXPOS COVID-19; Translations: [CONTACT W/AND (SUSP) EXPOS COVID-19]Onset: 20-05-8654Zcthlrexrexf (1 source)PERSONAL HISTORY OF COVID-19; Translations: [PERSONAL HISTORY OF COVID-19]Onset: 90-31-7500Iludj infection (2 sources)COVID-19; Translations: [Disease caused by 2019-nCoV]Onset: 05-29-2022 Past or Other Problems Problem ClassificationProblemDateDocumented DateEpisodic/ChronicOther aftercare (1 source)Other retirement (current) drug therapy; Translations: [OTH SKILLED NURSING CURRENT DRUG THERAPY]Onset: 37-54-1060ZghllqnuBzvbk non-traumatic joint disorders (1 source)Pain in right shoulder; Translations: [PAIN IN RIGHT SHOULDER]Onset: 32-52-8506KzecorzjQvohg upper respiratory infections (4 sources)Acute pharyngitis, unspecified; Translations: [Acute upper respiratory infection, unspecified]Onset: 42-59-6827PslfhpiyJcraxv media and related conditions (1 source)Otitis media; Translations: [Recurrent otitis media]Episodic Unclassified (1 source)CONTACT W/AND (SUSP) EXPOS COVID-19; Translations: [CONTACT W/AND (SUSP) EXPOS COVID-19]Onset: 06-01-2022 Results Test NameValueInterpretationReference RangeFacilityAmbulatory Visit Summaryon 43-56-2746Wzjlzfyetl Visit SummaryAmbulatory Visit Summary KARLA PEREZ :1990 Visit Date:08/11/2025 Ambulatory Visit Instructions Your Diagnosis Neuropathy Your Care Team Attending Physician - ANN MARIE ROBLERO CNP Primary Care Physician - ANN MARIE ROBLERO CNP This Is Your Medications List buprenorphine-naloxone (buprenorphine-naloxone 8 mg-2 mg sublingual film) gabapentin (gabapentin 800 mg Tab) hydrochlorothiazide (hydrochlorothiazide 25 mg Tab) levothyroxine (levothyroxine 100 mcg (0.1 mg) Tab) nystatin topical (nystatin Top 100,000 units/g Crm 15 gram) potassium chloride (Potassium Chloride (Gxb-Wdms-Iay 10) 10 mEq oral tablet, extended release) Procedures Performed None. Discharge Vitals Temperature (Temporal Artery) 37.0 ???C Heart Rate (Peripheral) 81 Respiratory Rate 18 Blood Pressure 132/88 Height 161.7 cm Height 64 in Weight 141.7 kg Weight 312.395 lb BMI 54.19 Medications What How Much When Instructions Unchanged buprenorphine-naloxone (buprenorphine-naloxone 8 mg-2 mg sublingual film) 84 EA, 0 Refill(s), DISSOLVE 1 film under the tongue THREE TIMES DAILY Unchanged gabapentin (gabapentin 800 mg Tab) See instructions Take one orally every morning and afternoon and 2 at bedtime Unchanged hydrochlorothiazide (hydrochlorothiazide 25 mg Tab) 0.5 Tablets By Mouth Every day Unchanged levothyroxine (levothyroxine 100 mcg (0.1 mg) Tab) 1 Tablets By Mouth Every day Unchanged nystatin topical (nystatin Top 100,000 units/ g Crm 15 gram) 15 gm, 0 Refill(s) Unchanged potassium chloride (Potassium Chloride (Twp-Zfcv-Nwv 10) 10 mEq oral tablet, extended release) See instructions TAKE 1 TABLET BY MOUTH DAILY Allergies No Known Allergies No Known Medication Allergies Problems Ongoing - Any problem that you are currently receiving treatment for. Anemia Anxiety DDD (degenerative disc disease), lumbar Hypertension Hypothyroid Major depressive disorder with single episode, in full remission Mild intermittent asthma without complication Morbid obesity with BMI of 50.0-59.9, adult STEEL (nonalcoholic steatohepatitis) Neuropathy Obesity, morbid Opiate use Vitamin B12 deficiency Patient Survey You may receive a survey via text or e-mail asking about your office visit. Please share your experience with us by completing your survey. We appreciate your feedback and thank you for choosing us for your care. Patient Portal You may access all of your results and other medical record information on our secure patient portal. If you are not signed up for this yet, please contact [employer] at [phone] to get signed up today. Language Information Language assistance services are available as needed. [facility] Medicine Office/Clinic Noteon 05-58-1281Tjxrvu Medicine Office/Clinic NoteFapittsfield [facility] Office/Clinic Note Chief Complaint The patient presents to discuss restarting medication for neuropathy and to review recent lab results. [facility] Staff Pt presents today for medication refills Patient is here for follow up on Thyroid Disease. Do you have any of the following symptoms? Change in energy level? nofeels sick all the time, nauseous, bruises easily Weight change? no Heat/cold intolerance? yes cold easier Hair/skin/nail changes? no Change in bowels? no Last TSH: 2.63 Wants to discuss restarting gabapentin, discuss labs from last visit (TSH) Stopped taking B12 6 months ago Refills: all History of Present Illness 35-year-old female presenting to discuss restarting medication for neuropathy and to review recent lab results. She has a history of neuropathy and was previously taking gabapentin 800 mg but has been off the medication for a while. This provider explained gabapentin would be restarted at 100 mg and the patient refused this dosage and stated she does not need it then. The patient reports constipation and acknowledges a diet low in fiber, fruits, and vegetables, stating a dislike for most vegetables except for green beans and peas. She also reports experiencing a poor appetite. A review of recent labs revealed a normal thyroid level at 2.63, a normal glucose of 96, and excellent kidney and liver function. Her total cholesterol was 146 and triglycerides were 77, but her HDL was low, prompting a recommendation for more exercise. Blood counts did not indicate anemia, despitea slightly elevated RDW, as other indices were normal. The patient has a history of taking vitamin B12 for energy, as prescribed by a previous provider, but stopped when she ran out of refills. She also reports a history of easy bruising that occurs around her menstrual period, which was present before her current job. She denies taking aspirin. Review of Systems PHQ Score Initial Depression Screen Score: 1 SCORE - Neurological: Reports symptoms of neuropathy. - Gastrointestinal: Reports constipation. - Constitutional: Reports a history of low energy. - Hematologic/Integumentary: Reports easy bruising, particularly around her menstrual cycle. - General: Denies use of recreational drugs or THC gummies. Physical Exam Vitals & Measurements T: 37.0 ???C(Temporal Artery) HR: 81(Peripheral) RR: 18 BP: 132/88 SpO2: 97% HT: 64 in HT: 161.7 cm WT: 312.395 lb WT: 141.7 kg BMI: 54.19 General: alert, no acute distress Cardiovascular: regular rate and rhythm, normal peripheral perfusion Respiratory: Lungs CTA, respirations non labored Extremities: no deformity, no trauma Neurological: oriented x 4, LOC appropriate for age speech normal Assessment/Plan 1. Constipation in female (K59.00: Constipation, unspecified) - The patient complains of constipation, associated with a diet low in fiber. - A prescription for MiraLax powder was provided, with instructions to take one capful daily, mixedwith juice or water. - She was advised she can increase the dose to twice a day if needed and to reduce the frequency once bowel movements become regular to prevent diarrhea. - The importance of maintaining adequate water intake was also emphasized. Ordered: methylcobalamin, 1 mg = 1 tab(s), SubLingual, Daily, # 90 tab(s), Refills(s) 1, Pharmacy: [facility], 161.7, cm, 08/11/25 13:57:00 EDT, Height/Length Dosing, 141.7, kg, 08/11/25 13:57:00 EDT, Weight Dosing polyethylene glycol 3350, 17 gm, Oral, Daily, # 30 EA, Refills(s) 1, Pharmacy: [facility], 161.7, cm, 08/11/25 13:57:00 EDT, Height/Length Dosing, 141.7, kg, 08/11/25 13:57:00 EDT, Weight Dosing 2. Low energy (R53.83: Other fatigue) - The patient was previously on vitamin B12 for energy but stopped due to running out of refills. - A prescription for sublingual vitamin B12 will be ordered as requested by the patient, with multiple refills to accommodate her insurance situation. Ordered: methylcobalamin, 1 mg = 1 tab(s), SubLingual, Daily, # 90 tab(s), Refills(s) 1, Pharmacy: [facility], 161.7, cm, 08/11/25 13:57:00 EDT, Height/Length Dosing, 141.7, kg, 08/11/25 13:57:00 EDT, Weight Dosing polyethylene glycol 3350, 17 gm, Oral, Daily, # 30 EA, Refills(s) 1, Pharmacy: [facility], 161.7, cm, 08/11/25 13:57:00 EDT, Height/Length Dosing, 141.7, kg, 08/11/25 13:57:00 EDT, Weight Dosing Orders: hydrochlorothiazide, 12.5 mg = 0.5 tab(s), Oral, Daily, # 135 tab(s), Refills(s) 0, Pharmacy: [facility], 161.7, cm, 08/11/25 13:57:00 EDT, Height/Length Dosing, 141.7, kg, 08/11/25 13:57:00 EDT, Weight Dosing levothyroxine, 100 mcg = 1 tab(s), Oral, Daily, # 90 tab(s), Refills(s) 0, Pharmacy: [facility], 161.7, cm, 08/11/25 13:57:00 EDT, Height/Length Dosing, 141.7, kg, 08/11/25 13:57:00 EDT, Weight Dosing potassium chloride, See Instructions, TAKE 1 TABLET BY MOUTH DAILY, # 90 tab(s), Refills (more content not included)...NormalRiverside Methodist HospitalComment on above:Result Comment: Electronically Signed By: ANN MARIE ROBLERO CNP\.br\Date and Time Signed: 08/11/25 14:58 EDTCBC w/ Auto Diffon 08-07-2025 Basophil Absolute0.1 E9/LNormal0.0-0.2[facility] CampusComment on above:Performed By: #### [id number] #### [facility] [address] [place] [address] 70390Wxaheigvw/100 WBC (Bld)0.8 %Normal0.0-2.0[facility] HospitalComment on above:Performed By: #### [id number] #### [facility] [address], [place] [address]Zeg Absolute0.2 E9/LNormal0.0-0.5FBlanchard [facility] Comment on above:Performed By: #### [id number] #### [facility] [address], [place] [address]Momxhhvitzq/100 WBC (Bld)3.3 %Normal0.0-8.0[facility] HospitalComment on above:Performed By: #### [id number] #### [facility] [address], [place] [address]Vbozvhtxgei distribution width (RBC) [Ratio]15.7 %High10.9-14.2 [facility] HospitalComment on above:Performed By: #### [id number] #### [facility] [address] [place] [address] 22345Ryjyymubfl (Bld) [Volume fraction]42.0 %Gjahev68.0-46.0[facility] HospitalComment on above:Performed By: #### [id number] #### [facility] [address] [place] [address] 57910Ynlqzofezu (Bld) [Mass/Vol]13.9 g/yAIbyyxj46.0-16.0[facility] HospitalComment on above:Performed By: #### [id number] #### [facility] [address], [place] [address]Hvypu Absolute2.4 E9/LNormal1.0-4.0[facility] Comment on above:Performed By: #### [id number] #### [facility] [address], [place] [address]Zaainemhqzv/100 WBC (Bld)39.0 %Nvakkj05.0-50.0[facility] HospitalComment on above:Performed By: #### [id number] #### [facility] [address], [place] [address]YFZ (RBC) [Entitic mass]28.7 keYxurua87.0-34.0[facility] HospitalComment on above:Performed By: #### [id number] #### [facility] [address] [place] [address] 513[address]ZYRZ (RBC) [Mass/Vol]33.2 g/kWAjhuty70.4-36.0[facility] HospitalComment on above:Performed By: #### [id number] #### [facility] [address] [place] [address] 16766PNR (RBC) [Entitic vol]86.5 rWTdmtuk55.0-100.0[facility] HospitalComment on above:Performed By: #### [id number] #### [facility] [address] [place] [address] 27[address]Lpym Absolute0.4 E9/LNormal0.2-1.0[facility] Comment on above:Performed By: #### [id number] #### [facility] [address] [place] [address] 09[address]Xjqiwxwft/100 WBC (Bld)6.0 %Normal4.0-14.0[facility] HospitalComment on above:Performed By: #### [id number] #### [facility] [address] [place] [address]Zhinpr Absolute3.1 E9/LNormal2.0-7.5FBlanchard [facility] Comment on above:Performed By: #### [id number] #### [facility] [address] [place] [address] 385[address]Krmyha Auto50.9 %Bvghat30.0-75.0[facility] Comment on above:Performed By: #### [id number] #### [facility] [address] [place] [address] 587[address]Jnytbzzk460.0 E9/KEcufgk841.0-500.0[facility] Comment on above:Performed By: #### [id number] #### [facility] [address] [place] [address] 41[address]Jflrelfn mean volume (Bld) [Entitic vol]9.1 fLNormal6.4-10.8 [facility] HospitalComment on above:Performed By: #### [id number] #### [facility] [address] [place] [address] 773[address]TOD8.8 E12/LNormal4.3-5.9[facility] HospitalComment on above:Performed By: #### [id number] #### [facility] [address] [place] [address] 17444VZW9.1 E9/LNormal4.0-11.0[facility] HospitalComment on above:Performed By: #### [id number] #### [facility] [address] [place] [address] 928[address]XEQrf 28-82-1577Yqhxrme [Mass/Vol]4.1 g/dLNormal3.3-5.0[facility] HospitalComment on above:Performed By: #### [id number] #### [facility] [address] [place] [address]Dldtwtw/Globulin [Mass ratio]1.2 {ratio}Normal1.1-2.2FBlanchard Valley Health System Bluffton HospitalComment on above:Performed By: #### [id number] #### [facility] [address] [place] [address]Ayu Phos63 Int._Unit/VFkbvdy68-56VgtxatRiverside Methodist Hospital Comment on above:Performed By: #### [id number] #### [facility] [address], [place] [address]NUY27 Int._Unit/LNormal6-46[facility] HospitalComment on above:Performed By: #### [id number] #### [facility] [address], [place] [address]Vokxo gap [Moles/Vol]10 mmol/LNormal6-16[facility] HospitalComment on above:Performed By: #### [id number] #### [facility] [address], [place] [address]VWY31 Int._Unit/LNormal5-43[facility] HospitalComment on above:Performed By: #### [id number] #### [facility] Laboratory [address], [place] [address]Ekuu Total1.0 mg/dLNormal0.0-1.1FBlanchard Valley Health [facility] Comment on above:Performed By: #### [id number] #### Espinoza [facility] Laboratory [address], [place] [address]MRC/Creat Ratio20 No LxyvaTihbsp21-02NvplhuRiverside Methodist HospitalComment on above:Performed By: #### [id number] #### [facility] Laboratory [address], [place] [address]Hbfbpog [Mass/Vol]9.3 mg/dLNormal8.9-11.1FBlanchard Valley Health System Bluffton HospitalComment on above:Performed By: #### [id number] #### [facility] Laboratory [address], [place] [address]Zftjtdqn [Moles/Vol]104 mmol/NFvrecm413-209CacwxmRiverside Methodist HospitalComment on above:Performed By: #### [id number] #### [facility] Laboratory [address], [place] [address]HP1 [Moles/Vol]29 mmol/BJtwvvi26-22XlalrjRiverside Methodist Hospital Comment on above:Performed By: #### [id number] #### [facility] Laboratory [address], [place] [address]Qfslszzflo [Mass/Vol]0.6 mg/dLNormal0.5-1.3FBlanchard Valley Health System Bluffton HospitalComment on above:Performed By: #### [id number] #### [facility] Laboratory [address], [place] [address]Leenzaqk (S) [Mass/Vol]3.5 g/dLNormal1.4-4.0R[facility]ide Methodist HospitalComment on above:Performed By: #### [id number] #### [facility] Laboratory [address], [place] [address]Ahxoonv [Mass/Vol]96 mg/uGOtgmnn27-934YzhnnhRiverside Methodist HospitalComment on above:Performed By: #### [id number] #### [facility] Laboratory [address], [place] [address]Khcjcwsgt [Moles/Vol]3.7 mmol/LNormal3.5-5.3FBlanchard Valley Health System Bluffton HospitalComment on above:Performed By: #### [id number] #### [facility] Laboratory [address], [place] [address]Lyasmkq [Mass/Vol]7.6 g/dLNormal6.0-7.8R[facility] Methodist HospitalComment on above:Performed By: #### [id number] #### [facility] Laboratory [address] [place] [address]Fhnyjb [Moles/Vol]139 mmol/XPjfzig434-087BqjosnRiverside Methodist HospitalComment on above:Performed By: #### [id number] #### [facility] [address] [place] [address]Arzd nitrogen [Mass/Vol]12 mg/dLNormal5-21R[facility] Methodist HospitalComment on above:Performed By: #### [id number] #### [facility] [address] [place] [address]Ppisx Panelon 53-03-4582Olrojthahmm [Mass/Vol]146 mg/dLNormal 120-200R[facility]ide Methodist HospitalComment on above:Performed By: #### [id number] #### [facility] Laboratory [address], [place] [address]Kdgiypujqho in HDL [Mass/Vol]54 mg/dLInvalid Interpretation CodeRiverside Methodist HospitalComment on above:Result Comment: '>= 60 LOW RISK' '<= 40 HIGH RISK'Performed By: #### [id number] #### [facility] [address] [place] [address]Ocjmcwkiagq in LDL [Mass/Vol]87 mg/dLNormal<=129R[facility]ide Methodist HospitalComment on above:Performed By: #### [id number] #### [facility] [address], [place] [address]Cqrtepqbkqx in VLDL [Mass/Vol]15 mg/dLNormal7-40R[facility] Methodist HospitalComment on above:Performed By: #### [id number] #### [facility] [address], [place] [address]Cgkzvotmzwxj [Mass/Vol]77 mg/dLNormal<=149R[facility]ide Methodist HospitalComment on above:Performed By: #### [id number] #### [facility] Laboratory [address], [place] [address]IRF With T4fr Reflexon 45-44-9480QUL Qn2.63 m[IU]/LNormal 0.34-5.60[facility] Methodist HospitalComment on above:Performed By: #### [id number] #### [facility] Laboratory [address], [place] [address]cGSMwf 24-35-1732kNDV592 mL/min/1.73 o3Hciwcm>=59Riverside Methodist HospitalComment on above:Performed By: #### [id number] #### [facility] Laboratory [address], [place] [address]Ywxlts Medicine Office/Clinic Noteon 67-68-9318Gxuilo Medicine Office/Clinic NoteFami Medicine Office/Clinic Note Chief Complaint Concerns with Menses The patient presents with complaints of getting sick before her menstrual cycle. HPI Staff Pt presents today with concerns about menses. Has been getting sick to stomach about 1-2wks prior to menses. Denies chances of due to lack of sexual intercourse. Does not remember the last time she had intercourse. Also concerned with bleeding belly button. States she was treated with nystatin cream in the past. Would like refill. Requesting levothyroxine, gabapentin & HCTZ refills. TSH: 1.14 mcIU/mL (03/18/24 14:02:00) History of Present Illness 35-year-old female presenting for an acute visit for painful menses. She reports that since March, she has been experiencing nausea, fatigue, and flu-like symptoms that begin prior to the onset of her menstrual cycle each month. She states that she vomited during one of these episodes a month ago but has not since. The patient has a history of irregular menses, but her cycles have become regular on a monthly basis following a recent four-month incarceration. Her most recent cycle was abnormal, with less bleeding than usual. She denies the possibility of as she is not sexually active due to her 's difficulty with sexual performance. The patient expresses a desire to have a baby and for this reason, is not interested in starting control pills to manage her symptoms. She has not been seen for some time and requires refills for her medications, including gabapentin, which will be addressed at a separate follow-up visit. Review of Systems PHQ Score Initial Depression Screen Score: 2 SCORE - Constitutional: Reports fatigue associated with her premenstrual period. - Gastrointestinal: Reports nausea premenstrually. - Reports a single episode of vomiting one month ago. - Genitourinary: Reports painful menses. - Reports abnormal bleeding this month with less flow than usual. - Denies current sexual activity. Physical Exam Vitals & Measurements T: 36.8 ???C(Oral) HR: 90(Peripheral) RR: 18 BP: 132/84 SpO2: 96% HT: 64 in HT: 161.7 cm WT: 314.379 lb WT: 142.6 kg BMI: 54.54 General: alert, no acute distress Cardiovascular: regular rate and rhythm, normal peripheral perfusion Respiratory: Lungs CTA, respirations non labored Extremities: no deformity, no trauma Neurological: oriented x 4, LOC appropriate for age speech normal Assessment/Plan 1. Painful menstrual periods (N94.6: Dysmenorrhea, unspecified) - Awaiting laboratory results - Will refer to gynecology pending laboratory results Ordered: CBC w/ Auto Diff Comprehensive Metabolic Panel Lipid Panel TSH With T4fr Reflex Follow-up With When Contact Information ANN MARIE ROBLERO CNP, FAM Within 1 week [address] [place] [address] Business (1) Additional Instructions: Hypothyroidism & medication management Patient Education Dysmenorrhea, Oabv-hb-Jjuq Problem List/Past Medical History Ongoing Anemia Anxiety DDD (degenerative disc disease), lumbar Hypertension Hypothyroid Major depressive disorder with single episode, in full remission Mild intermittent asthma without complication Morbid obesity with BMI of 50.0-59.9, adult STEEL (nonalcoholic steatohepatitis) Neuropathy Obesity, morbid Opiate use Vitamin B12 deficiency Historical No qualifying data Procedure/Surgical History None. Medications buprenorphine-naloxone 8 mg-2 mg sublingual film cyanocobalamin 2500 mcg sublingual tablet, See Instructions gabapentin 800 mg Tab, See Instructions, Not taking: out of med. requesting new script hydrochlorothiazide 25 mg Tab, 12.5 mg= 0.5 tab(s), Oral, Daily levothyroxine 100 mcg (0.1 mg) Tab, 100 mcg= 1 tab(s), Oral, Daily nystatin Top 100,000 units/g Crm 15 gram, Not taking: ran out of cream. is wanting more Potassium Chloride (Zxu-Rsaa-Plg 10) 10 mEq oral tablet, extended release, See Instructions, Not taking: no refills. unsure if she needs to continue taking. Allergies No Known Allergies No Known Medication Allergies Social History Alcohol - Denies Alcohol Use, 05/02/2024 Never., 08/06/2025 Substance Abuse - Denies Substance Abuse, 05/02/2024 Current. Amphetamines, Cocaine, Methamphetamines, Prescription medications. Daily. Previous treatment: Outpatient., 08/06/2025 Tobacco Never (less than 100 in lifetime) Tobacco Use:. Never Smokeless Tobacco Use:. Ready to change: No. Household tobacco concerns: No. Yes, 08/06/2025 Family History Family history is unknown Immunizations Vaccine Date Status influenza virus vaccine, inactivated 07/29/2020 Recorded hepatitis A adult vaccine 01/09/2019 [facility] Comment on above:Result Comment: Electronically Signed By: ANN MARIE ROBLERO CNP\.claudine\Date and Time Signed: 08/06/25 16:23 EDTCHEMISTRYOrdered By: SYSTEM SYSTEM on 84-80-8035Mrrrjdvdk [Moles/Vol]3.6 mmol/LNormal3.5 - 5.3 mmol/LRemisol Chem Family Medicine Office/Clinic Noteon 42-11-0147Qkrkyx Medicine Office/Clinic NoteFamily Medicine Office/Clinic Note HPI Staff Karla is a 33 year old female presenting with check up on potassium levels 03/18/24- Potassium was 3.2.... Had it rechecked at [facility] 03/27/24- Potassium was 3.2 Was advised to cut her HTCZ in 1/2 at [facility] History of Present Illness Patient presents today for HTN & hypokalemia. She reports she is not taking her blood pressure and has not noticed any difference since decreasing the hydrochlorothiazide 25 mg to 1/2 tablet. Shereports she has been taking the potassium as [...] qWeek, # 2 mL, Refills(s) 0, Pharmacy: [id number], 161.7, cm, 03/18/24 13:25:00 EDT, Height/Length [...] medical support in addressing this problem. Your BMIand weight management will be followed at subsequent [...] medical support in addressing this problem. Your BMIand weight management will be followed at subsequent visits. Orders: hydrochlorothiazide, 12.5 mg = 0.5 tab(s), Oral, Daily, # 135 tab(s), Refills(s) 1, Pharmacy: [id number], 161.7, cm, 05/02/24 10:56:00 EDT, Height/Length Dosing, 156, kg, 05/02/24 10:56:00 EDT, Weight Dosing nystatin topical, 1 juli, Topical, BID, 15 gram, Refill(s) 0, [facility], 161.7, cm,03/18/24 13:25:00 EDT, Height/Length Dosing, 158, kg, 03/18/24 13:25:00 EDT, Weight Dosing Sleep Study Baseline Follow-up With When Contact Information ANN MARIE ROBLERO CNP, JONATHAN Within [address] [place] [phone] Business (1) Additional Instructions: HTN Patient Education Potassium Content of Foods Problem List/Past Medical History Ongoing Anemia Anxiety DDD (degenerative disc disease), lumbar Hypertension Hypothyroid Major depressive disorder with single episode, in full remission Mild intermittent asthma without complication STEEL (nonalcoholic steatohepatitis) Neuropathy Obesity, morbid Opiate use Vitamin B12 deficiency Historical No qualifying data Procedure/Surgical History None. Medications buprenorphine-naloxone 8 mg-2 mg sublingual film cyanocobalamin 2500 [...] tab(s), Oral, Daily venlafaxine 75 mg Tab Samaravy (0.25 mg dose) subcutaneous solution Allergies No Known Allergies No Known Medication Allergies Social History Alcohol - Denies Alcohol Use, 05/02/2024 Substance Abuse - Denies Substance Abuse, 05/02/2024 Tobacco Never (less than 100 in lifetime) Tobacco Use:. Never Smokeless Tobacco Use:., 05/02/2024 Family History Family history is unknown Immunizations Vaccine Date Status influenza virus vaccine, inactivated 07/29/2020 [facility] on above:Result Comment: Electronically Signed By: ANN MARIE ROBLERO CNP\.br\Date and Time Signed: 05/02/24 11:21 EDTCoding Summary.on 67-81-7629Fhagbu Summary. VGIMNlsd10XVn4tEx+PGhlYWQ+YE0BLPSxT03ylCHhgS6oA1ORVXvBVfqsSLMTNLdXYkMaadBdAK0piU NjZXJu [file] [id number] (more content not included)...[facility] Physician Orderon 40-70-6720Qsjykeijn Order [id number]#1.00TIFProMedica Defiance Regional HospitalPhysician Orderon [id number] Order [id number]#1.00[facility]Amb[facility] Visit Summaryon 23-99-9498Jmvpwlnwub Visit Summary KARLA PEREZ :1990 Visit Date:03/27/2024 [...] Chan MD This Is Your Medications List buprenorphine-naloxone (Suboxone 8 mg-2 mg sublingual film) cyanocobalamin [...] EDT With: ANN MARIE ROBLERO CNP [facility] [BMI] 60.0-69.9, adult, Print Label By Order Location\.br\ Medications\.br\ What How Much When Why Instructions\.br\ Unchanged buprenorphine-naloxone (Suboxone 8 mg-2 mg sublingual film) See instructions 3 daily dissolved under the tongue \.br\ Unchanged cyanocobalamin (cyanocobalamin 2500 mcg sublingual tablet) See instructions Take 2 sublingual daily \.br\ Unchanged gabapentin (g abapentin 800 mg Tab) See instructions Take one orally every morning and afternoon and 2 at bedtime\.br\ Unchanged hydrochlorothiazide (hydrochlorothiazide 25 mg Tab) 1 Tablets By Mouth Every day\.br\ Unchanged levothyroxine (levothyroxine 100 mcg (0.1 mg) Tab) 1 Tablets By Mouth Every day\.br\ Unchanged nystatin topical (nystatin Top 100,000 units/ g Crm 15 gram) 1 Application Topical 2 times aday Yeast infection of the skin Body mass index [BMI] 60.0-69.9, adult\.br\ Unchanged semaglutide (Wegovy (0.25 mg dose) subcutaneous solution) 0.25 Milligram Subcutaneous Every week Obesity, morbid E ncounter to establish care BMI 60.0-69.9, adult Class 3 severe obesity due to excess calories with body mass index (BMI) of 60.0 to 69.9 in adult Nonsmoker\.br\ Allergies\.br\ No Known Allergies\.br\No Known Medication Allergies\.br\ Problems\.br\ Ongoing - Any problem that you are currently receiv ing treatment for.\.br\ Anemia\.br\ Anxiety\.br\ DDD (degenerative disc disease), lumbar\.br\ Hypertension\.br\ Hypothyroid\.br\ Major depressive disorder with single episode, in full remission\.br\ Mild intermittent asthma without complication\.br\ STEEL (nonalcoholic steatohepatitis)\.br\ Neuropath y\.br\ Obesity, morbid\.br\ Opiate use\.br\ Vitamin B12 deficiency\.br\ Patient Survey\.br\ You mayreceive a survey via text or e-mail asking about your office visit. Please share your experience with us by completing your survey. We appreciate your feedback and thank you for choosing us for your care.\.br\ \.br\[facility] HospitalCHEMISTRYOrdered By: SYSTEM SYSTEM on 22-90-1768Qbbhehbol [Moles/Vol]3.2 mmol/LLow3.5 - 5.3 mmol/LRemisol ChemFamily Medicine Office/Clinic Noteon 19-91-7321Hyogbq Medicine Office/Clinic NoteHPI Staff Karla is a 33 year old [...] herself, kicks her legs all night, wakes upscreaming History of Present Illness Patient presents today [...] sleep study. She states he reports she snores,gasps at night, stops breathing, Kicks at night, [...] pharyngeal erythema or exudate; Neck measures 17 1/4 Cardiovascular: regular rate and rhythm, normal peripheral perfusion Respiratory: Lungs CTA, respirations non labored Extremities: no deformity, no trauma Neurological: oriented x 4, LOC appropriate for age speech normal Assessment/Plan 1. Sleep disorder (G47.9: Sleep disorder, unspecified) Neck measures 17 1/4 Patient reports snoring & periods of apnea Awaiting sleep study results Ordered: Lab Specimen Collect [id number] Sleep Study Baseline 2. Hypokalemia (E87.6: Hypokalemia) Patient to continue with Hydochlorothiazide 25 mg take 1/2 tablet po daily Awaiting K+ level Will consider changing medication to control B/P if there is not any improvement in the K+ level Ordered: Lab Specimen Collect [id number] Potassium Level 3. BMI 60.0-69.9, adult, (Z68.44: [...] medical support in addressing this problem. Your BMIand weight management will be followed at subsequent visits. Ordered: Lab Specimen Collect [id number] Potassium Level Sleep Study Baseline 4. Class [...] medical support in addressing this problem. Your BMIand weight management will be followed at subsequent visits. Ordered: Lab Specimen Collect [id number] Sleep Study Baseline 5. Nonsmoker (Z78.9: Other specified health status) Encouraged to continue as a non-smoker Ordered: Lab Specimen Collect [id number] Follow-up No qualifying data available Patient Education [...] Top 100,000 units/g Crm 15 gram, 1 ujli, Topical, BID Suboxone 8 mg-2 mg sublingual film, See Instructions Wegovy (0.25 mg dose) subcutaneous solution, 0.25 mg, SubCutaneous, qWeek, Unable to obtain (more content not included)...[facility] Comment on above:Result Comment: Electronically Signed By: ANN MARIE ROBLERO CNP\cally\Date and Time Signed: 03/27/24 12:54 EDTPatient Educationon 03-27-2024 Patient EducationNephrology Potassium Content of Foods Potassium is a mineral found in many foods and drinks. It can affect how the heart works, affect blood pressure, and keep fluids and electrolytes balanced in the body. It is important not to have toomuch potassium (hyperkalemia) or too little potassium (hypokalemia) [...] mg of potassium per serving. Fruits ? [place] ? 1 medium (130 g) has 230 [...] shelf life, and food preparation. Contact a dietitianfor more information. What foods are low in [...] on your age and any existing medical conditionsyou may have. ? Your health care provider or dietitian may recommend an amount of potassium that you should have each day. This information is not intended to replace advice given to you by your health care provider. Make sure you discuss any questions you have with your health care provider. Document Revised: 07/04/2022 Document Reviewed: 06/15/2022 Elsevier Patient Education ? 2022 [employer] Potassiumon 22-55-5531Wnlyeximz [Moles/Vol]3.2 mmol/LLow3.5-5.3[facility] CampusComment on above:Performed By: #### [id number] #### [facility] Laboratory [address] [place], [place] [address]Idciutpdc Referralon [id number] Referral [id number]#1.00TIFFNormalRiverside Methodist HospitalAmbulatory Visit Summaryon [id number] Visit Summary KARLA PEREZ :1990 Visit Date:03/18/2024 Ambulatory Visit Instructions Your Diagnosis Obesity, morbid, Class 3 severe obesity due to excess calories with body mass index (BMI) of 60.0 to 69.9 in adult Encounter to establish care BMI 60.0-69.9, adult, Body mass index [BMI] 60.0-69.9, adult Nonsmoker Your Care Team Attending Physician - ANN MARIE ROBLERO CNP Primary Care Physician - Kael hCan MD. This Is Your Medications List Contact prescribing physician if questions or concerns buprenorphine-naloxone (Suboxone 8 mg-2 mg sublingual film) cyanocobalamin [...] EDT With: ANN MARIE ROBLERO CNP [facility] [place]NormalRiverside Methodist HospitalCBC w/ Auto Diffon 14-13-6867Kgrjyppvc/100 WBC (Bld)0.9 %Normal 0.0-2.0[facility] HospitalComment on above:Performed By: #### [id number] #### [facility] Laboratory [address] [place] [address]Yrgxazpwq/Leukocytes Auto (Bld) [Pure # fraction]0.1 E9/LNormal 0.0-0.2FBlanchard Valley Health System Bluffton HospitalComment on above:Performed By: #### [id number] #### [facility] [address] [place] [address]Knxcsldnwcu (Bld) [#/Vol]0.3 E9/LNormal0.0-0.5FBlanchard Valley Health System Bluffton HospitalComment on above:Performed By: #### [id number] #### [facility] [address] [place] [address]Avgsntmomol/100 WBC (Bld)3.7 %Normal0.0-8.0[facility] HospitalComment on above:Performed By: #### [id number] #### [facility] [address] [place] [address]Elmkebhrzpm distribution width (RBC) [Ratio]15.2 %High10.9-14.2 [facility] HospitalComment on above:Performed By: #### [id number] #### [facility] [address] [place] [address]Ejbfjcaneo (Bld) [Volume fraction]41.9 %Rnmuft86.0-46.0[facility] HospitalComment on above:Performed By: #### [id number] #### [facility] [address] [place] [address]Dqacpzqhzo (Bld) [Mass/Vol]13.9 g/bOTnhjag85.0-16.0[facility] HospitalComment on above:Performed By: #### [id number] #### [facility] [address] [place] [address]Mmjayyqlkfh (Bld) [#/Vol]2.4 E9/LNormal1.0-4.0[facility] HospitalComment on above:Performed By: #### [id number] #### [facility] [address] [place] [address]65[address]Mxycjpgigxl/100 WBC (Bld)32.6 %Rvhvoi75.0-50.0[facility] HospitalComment on above:Performed By: #### [id number] #### [facility] [address] [place] [address] 20[address]FNO (RBC) [Entitic mass]28.0 vzGymhzy57.0-34.0[facility] HospitalComment on above:Performed By: #### [id number] #### [facility] [address] [place] [address]MDFX (RBC) [Mass/Vol]33.1 g/wZKgnnap19.4-36.0[facility] HospitalComment on above:Performed By: #### [id number] #### [facility] [address] [place] [address]ZPX (RBC) [Entitic vol]84.6 qSIjssfj52.0-100.0[facility] HospitalComment on above:Performed By: #### [id number] #### [facility] [address] [place] [address]Qxcjiitzl (Bld) [#/Vol]0.6 E9/LNormal0.2-1.0[facility] HospitalComment on above:Performed By: #### [id number] #### [facility] [address] [place] [address] 18472Xkobnwijqho (Bld) [#/Vol]4.0 E9/LNormal2.0-7.5FBlanchard Valley Health System Bluffton HospitalComment on above:Performed By: #### [id number] #### [facility] [address] [place] [address]Nbcwagwrhgg/100 WBC (Bld)54.3 %Fztudx98.0-75.0[facility] HospitalComment on above:Performed By: #### [id number] #### [facility] Laboratory [address], [place] [address]Lcmgliwq mean volume (Bld) [Entitic vol]8.2 fLNormal6.4-10.8 [facility] HospitalComment on above:Performed By: #### [id number] #### [facility] [address], [place] [address]Guvjlzuwj (Bld) [#/Vol]386.0 E9/AVcnldj295.0-500.0[facility] HospitalComment on above:Performed By: #### [id number] #### [facility] [address] [place] [address]RKF (Bld) [#/Vol]5.0 E12/LNormal4.3-5.9[facility] HospitalComment on above:Performed By: #### [id number] #### [facility] [address] [place] [address]SXH corrected for nucl RBC Auto (Bld) [#/Vol]7.3 E9/LNormal 4.0-11.0[facility] HospitalComment on above:Performed By: #### [id number] #### [facility] [address] [place] [address]OMPWGBCDHFqsvmef By: SYSTEM SYSTEM on 72-32-6377Wltktat [Mass/Vol]4.0 g/dLNormal3.3 - 5.0 gm/dLRemisol ChemAlbumin/Globulin [Mass ratio] 1.1 {ratio}Normal1.1 - 2.2Remisol ChemALP [Catalytic activity/Vol]73 [iU]/d Kgnkfg72 - 98 Int._Unit/LRemisol ChemALT No additional P-5'-P [Catalytic activity/Vol]23 [iU]/dNormal6 - 46 Int._Unit/LRemisol ChemAnion gap [Moles/Vol] 12 mmol/LNormal6 - 16 mEq/LRemisol ChemAST [Catalytic activity/Vol]22 [iU]/d Normal5 - 43 Int._Unit/LRemisol ChemBilirubin [Mass/Vol]0.5 mg/dLNormal0.0 - 1.1 mg/dLRemisol ChemCalcium [Mass/Vol]9.0 mg/dLNormal8.9 - 11.1 mg/dLRemisol Chem Chloride [Moles/Vol]101 mmol/ZWcaspc915 - 111 mmol/LRemisol ChemCholesterol [Mass/Vol]168 mg/nLJsguwv470 - 200 mg/dLRemisol ChemCholesterol in HDL [Mass/Vol]45 mg/dLInvalid Interpretation CodeRemisol ChemComment on above:Result Comment: '>= 60 LOW RISK' '<= 40 HIGH RISK'Cholesterol in LDL [Mass/Vol]107 mg/dLNormal<=129mg/dLRemisol ChemCholesterol in VLDL [Mass/Vol]25 mg/dLNormal7 - 40 mg/dLRemisol ChemCO2 [Moles/Vol]30 mmol/BUloboa88 - 31 mmol/LRemisol ChemCreatinine [Mass/Vol]0.6 mg/dLNormal0.5 - 1.3 mg/dLRemisol UhurvSCD699 mL/min/1.73 w7Vynyfw >=59mL/min/1.73 x0Valrzbk ChemGlobulin (S) [Mass/Vol]3.7 g/dLNormal1.4 - 4.0 gm/dLRemisol ChemGlucose [Mass/Vol]102 mg/zGSqjfuq79 - 199 mg/dLRemisol Chem Potassium [Moles/Vol]3.2 mmol/LLow3.5 - 5.3 mmol/LRemisol ChemProtein [Mass/Vol] 7.7 g/dLNormal6.0 - 7.8 gm/dLRemisol ChemSodium [Moles/Vol]140 mmol/MLohttt258 - 145 mmol/LRemisol ChemTriglyceride [Mass/Vol]123 mg/dLNormal<=149mg/dLRemisol ChemTSH Qn1.14 m[IU]/LNormal0.34 - 5.60 mcIU/mLRemisol ChemUrea nitrogen [Mass/Vol]9 mg/dLNormal5 - 21 mg/dLRemisol ChemUrea nitrogen/Creatinine [Mass ratio]15 mg/mpUlzkhn94 - 20Remisol ChemCHEMISTRYOrdered By: Bharati Stephen on 06-14-9537PvP8t (Bld) [Mass fraction]5.7 %Normal<=5.9%[facility] ChemAutoSSCMPon 00-74-6269Zzrgoxh [Mass/Vol]4.0 g/dLNormal3.3-5.0[facility] Comment on above:Performed By: #### [id number] #### [facility] [address], [place] [address]Dskqcsj/Globulin (S) [Mass conc ratio]1.9Aekkkv7.1-2.2FBlanchard Valley Health System Bluffton HospitalComment on above:Performed By: #### [id number] #### [facility] [address], [place] [address]XXJ [Catalytic activity/Vol]73 Int._Unit/HDtzafi20-32GyjwhwRiverside Methodist HospitalComment on above:Performed By: #### [id number] #### [facility] [address], [place] [address]SNU No additional P-5'-P [Catalytic activity/Vol]23 Int._Unit/L Normal6-46[facility] HospitalComment on above:Performed By: #### [id number] #### [facility] [address], [place] [address]Hlzny gap [Moles/Vol]12 mmol/LNormal6-16[facility] HospitalComment on above:Performed By: #### [id number] #### [facility] [address], [place] [address]SSX [Catalytic activity/Vol]22 Int._Unit/LNormal5-43[facility] HospitalComment on above:Performed By: #### [id number] #### [facility] [address], [place] [address]Mzbevlwwg [Mass/Vol]0.5 mg/dLNormal0.0-1.1FBlanchard Valley Health System Bluffton HospitalComment on above:Performed By: #### [id number] #### [facility] [address], [place] [address]Jlpugcn [Mass/Vol]9.0 mg/dLNormal8.9-11.1FBlanchard Valley Health System Bluffton HospitalComment on above:Performed By: #### [id number] #### [facility] [address], [place] [address]Jhohyrbl [Moles/Vol]101 mmol/YIfaafm802-217VimkkhRiverside Methodist HospitalComment on above:Performed By: #### [id number] #### [facility] [address], [place] [address]QS9 [Moles/Vol]30 mmol/GUgkylb55-08QbjmljRiverside Methodist Hospital Comment on above:Performed By: #### [id number] #### [facility] [address], [place] [address]Oncdvktuob [Mass/Vol]0.6 mg/dLNormal0.5-1.3FBlanchard Valley Health System Bluffton HospitalComment on above:Performed By: #### [id number] #### [facility] [address], [place] [address]Kquupyua (S) [Mass/Vol]3.7 g/dLNormal1.4-4.0[facility] HospitalComment on above:Performed By: #### [id number] #### [facility] [address], [place] [address]Guwvmuj [Mass/Vol]102 mg/dCNouotq96-842QxbakfRiverside Methodist HospitalComment on above:Performed By: #### [id number] #### [facility] [address], [place] [address]Hawznborr [Moles/Vol]3.2 mmol/LLow3.5-5.3FBlanchard Valley Health System Bluffton HospitalComment on above:Performed By: #### [id number] #### [facility] [address], [place] [address]Ixkvjol [Mass/Vol]7.7 g/dLNormal6.0-7.8[facility] HospitalComment on above:Performed By: #### [id number] #### [facility] [address], [place] [address]Dsursc [Moles/Vol]140 mmol/MLayabh877-160UlmwnbRiverside Methodist HospitalComment on above:Performed By: #### [id number] #### [facility] [address], [place] [address]Olqz nitrogen [Mass/Vol]9 mg/dLNormal5-21[facility] HospitalComment on above:Performed By: #### [id number] #### [facility] [address], [place] [address]Uxrp nitrogen/Creatinine [Mass ratio]15 No IqqhuZcekqs18-39 [facility] HospitalComment on above:Performed By: #### [id number] #### [facility] [address], [place] [address]Udtvcb Medicine Office/Clinic Noteon 76-80-2585Htjrfh Medicine Office/Clinic NoteHPI Staff Karla is a 33 year old [...] and ozempic, ran out and hasn't seen adr for refills since Dr Vázquez left History of Present Illness 33 year old presents today to establish care with this provider. She was a previous patient of Dr. Vázquez. She reports she was prescribed Ozempic 0.25 mg subq weekly last year and she states she lostabout 20-30 pounds on the medication. However, she reports she did not follow through with keeping a ppointments. She denies a history of diabetes. She states she would like to lose 150 lbs. She walksabout 1/2 a mile 2 times per week but has not been doing that lately. She reports in the past she has tried the keto diet with out success. She states she knows she can not have Adipex because of theSuboxone she takes. She is hoping to get something to help her with weight lose. She has a concern about the drainage coming from her belly button . She states this has been occurring for about 1-2 weeks. She has been cleansing the area and using toilet paper in the belly buttonto catch the drainage. Review of Systems PHQ [...] no food allergies, no recurrent infections, no impairedimmunity Additional ROS info: Except as noted in [...] 5-7x/week Discussed portion control Will refer to ct scan technologist Start semaglutide, 0.25 mg, SubCutaneous weekly f/u 4 weeks Ordered: semaglutide, 0.25 mg, SubCutaneous, qWeek, # 2 mL, Refills(s) 0, Pharmacy: [facility], 161.7, cm, 03/18/24 13:25:00 EDT, Height/Length Dosing, 158, kg, 03/18/24 13:25:00 EDT, Weight Dosing Body Mass Index (BMI) documented 3008F CBC w/ Auto Diff Comprehensive Metabolic Panel Current tobacco non-user 1036F Depression Screening Negative 3352F [facility] Internal Ambulatory Referral HgbA1c Lab Specimen Collect 73372 Lipid Panel Most recent diastolic blood pressure 80-89 mm Hg 3079F Systolic BP 130-139 mm Hg (Most Recent) 3075F TSH With T4fr Reflex 2. Yeast infection of the skin (B37.2: Candidiasis of skin and nail) Cleanse the umbilicus BID Apply nystatin topical BID to the area f/u in 4 weekd Ordered: nystatin topical, 1 juli, Topical, BID, 15 gram, Refill(s) 0, [facility], 161.7, cm,06 (more content not included)...[facility] HospitalComment on above:Result Comment: Electronically Signed By: ANN MARIE ROBLERO CNP\.claudine\Date and Time Signed: 03/18/24 14:31 EDTHEMATOLOGYOrdered By: SYSTEM SYSTEM on 65-27-0646Qkqvdxowb/100 WBC (Bld)0.9 %Normal0.0 - 2.0 %Remisol HemeBasophils/Leukocytes Auto (Bld) [Pure # fraction]0.1 E9/LNormal0.0 - 0.2 E9/LRemisol HemeEosinophils (Bld) [#/Vol]0.3 E9/LNormal0.0 - 0.5 E9/LRemisol HemeEosinophils/100 WBC (Bld)3.7 %Normal0.0 - 8.0 %Remisol HemeErythrocyte distribution width (RBC) [Ratio]15.2 %High10.9 - 14.2 %Remisol HemeHematocrit (Bld) [Volume fraction]41.9 %Oxwpps27.0 - 46.0 %Remisol HemeHemoglobin (Bld) [Mass/Vol]13.9 g/oMVihtku04.0 - 16.0 gm/dLRemisol HemeLymphocytes (Bld) [#/Vol] 2.4 E9/LNormal1.0 - 4.0 E9/LRemisol HemeLymphocytes/100 WBC (Bld)32.6 %Normal 14.0 - 50.0 %Remisol HemeMCH (RBC) [Entitic mass]28.0 xpDtkggp41.0 - 34.0 pg Remisol HemeMCHC (RBC) [Mass/Vol]33.1 g/lSRkuqhn21.4 - 36.0 gm/dLRemisol HemeMCV (RBC) [Entitic vol]84.6 bUGsrdka08.0 - 100.0 fLRemisol HemeMonocytes (Bld) [#/Vol]0.6 E9/LNormal0.2 - 1.0 E9/LRemisol HemeMonocytes/100 WBC (Bld)8.5 % Normal4.0 - 14.0 %Remisol HemeNeutrophils (Bld) [#/Vol]4.0 E9/LNormal2.0 - 7.5 E9/LRemisol HemeNeutrophils/100 WBC (Bld)54.3 %Vjkddf00.0 - 75.0 %Remisol Heme Platelet mean volume (Bld) [Entitic vol]8.2 fLNormal6.4 - 10.8 fLRemisol Heme Platelets (Bld) [#/Vol]386.0 E9/WZmreri601.0 - 500.0 E9/LRemisol HemeRBC (Bld) [#/Vol]5.0 E12/LNormal4.3 - 5.9 E12/LRemisol HemeWBC corrected for nucl RBC Auto (Bld) [#/Vol]7.3 E9/LNormal4.0 - 11.0 E9/LRemisol YjilZxzO8vac 37-45-5002WpT2g (Bld) [Mass fraction]5.7 %Normal<=5.9[facility] HospitalComment on above:Performed By: #### [id number] #### [facility] [address], [place] [address]Npbur Panelon 35-31-4061Ztekvveyfby [Mass/Vol]168 mg/dLNormal 120-200[facility] HospitalComment on above:Performed By: #### [id number] #### [facility] [address], [place] [address]Yaoxueqqsbl in HDL [Mass/Vol]45 mg/dLInvalid Interpretation CodeRiverside Methodist HospitalComment on above:Result Comment: '>= 60 LOW RISK' '<= 40 HIGH RISK'Performed By: #### [id number] #### [facility] [address], [place] [address]Iyvovkdzlzz in LDL [Mass/Vol]107 mg/dLNormal<=129[facility] HospitalComment on above:Performed By: #### [id number] #### [facility] [address], [place] [address]Ttjjseuxjmd in VLDL [Mass/Vol]25 mg/dLNormal7-40[facility] HospitalComment on above:Performed By: #### [id number] #### [facility] [address], [place] [address]Lwqjtejxjljz [Mass/Vol]123 mg/dLNormal<=149Fisher [facility] CampusComment on above:Performed By: #### [id number] #### [facility] [address] [place], [place] [address]Vybwsst Educationon 25-28-1179Fdzufsf EducationInfectious Disease Skin Yeast Infection A skin yeast [...] and physical exam. Your health care provider maycheck for yeast by taking scrapings of the skin to be viewed under a microscope. How is this treated? This condition is treated with medicine. Medicines may be prescribed or available over the counter.The medicines may be: ? Taken by mouth (orally). ? Applied as a cream or powder to your skin. Follow these instructions at home: ? Take or apply lkkt-vss-qpdlapi and prescription medicines only as told by [...] on the skin. ? Take or apply ximp-aae-nrisxjg and prescription medicines only as told by [...] provider. Document Revised: 12/20/2021 Document Reviewed: 12/20/2021 [employer] Patient Education ? 2022 [employer] TSH With T4fr Reflexon 62-25-8092KEE Qn1.14 m[IU]/LNormal0.34-5.60[facility] HospitalComment on above:Performed By: #### [id number] #### [facility] [address], [place] [address]rHLHoh 95-68-9813kJOF851 mL/min/1.73 f7Fpxiiy>=59[facility] HospitalComment on above:Order Comment: Order added by Discern Expert. Performed By: #### [id number] #### [facility] [address], [place] [address]LGO AUTO DIFFon 10-37-8336WAWM #0.1 103/ulNormal0.0-0.1[facility] Health AdministrationComment on above:Performed By: #### CBC #### [facility] [address], [place] [address] Dr. Delta Gilmanphils/100 WBC (Bld)1.1 %Normal0.2-2.0[facility] Comment on above:Performed By: #### CBC #### [facility] [address], [place] [address] Dr. Delta Lieberman #0.6 103/ulNormal0.0-0.7The [place] [facility] HospitalComment on above: Performed By: #### CBC #### [facility] [address] [place] [address] Dr. Delta Paizosinophils/100 WBC (Bld)8.8 %Critically high0.9-7.0The [place] [facility] HospitalComment on above:Performed By: #### CBC #### [facility] [address] [place] [address] Dr. Delta Paizrythrocyte distribution width (RBC) [Ratio]14.0 %Mydeyh13.0-15.0 The [place] [facility] HospitalComment on above:Performed By: #### CBC #### [facility] [address] [place] [address] Dr. Delta FlynnHematocrit (Bld) [Volume fraction]37.3 %Mmwgvv80.0-48.0The [place] [facility] HospitalComment on above:Performed By: #### CBC #### [facility] [address] [place] [address] Dr. Delta FlynnHemoglobin (Bld) [Mass/Vol]13.1 g/sPNykiza31.0-16.0The [place] [facility] HospitalComment on above:Performed By: #### CBC #### [facility] [address] [place] [address] Dr. Delta Alexander #0.01 10e3/ulNormal0.00-0.03The [place] [facility] HospitalComment on above:Performed By: #### CBC #### [facility] [address] [place] [address] Dr. Delta Alexander %0.1 %Normal0.0-0.5The [place] [facility] HospitalComment on above: Performed By: #### CBC #### [facility] [address] [place] [address] Dr. Delta DaiH #2.9 103/ulNormal1.2-3.8The [place] [facility] HospitalComment on above:Performed By: #### CBC #### [facility] [address] [place] [address] Dr. Delta Reyesmphocytes/100 WBC (Bld)40.5 %Mgcqhz92.5-60.0The [place] [facility] HospitalComment on above:Performed By: #### CBC #### [facility] [address] [place] [address] Dr. Delta Aden DIFF REQNONormalThe [place] [facility] HospitalComment on above: Performed By: #### CBC #### [facility] [address] [place] [address] Dr. Delta Herrera (RBC) [Entitic mass]27.4 fzOmojsw06.7-34.0The [place] [facility] HospitalComment on above:Performed By: #### CBC #### [facility] [address] [place] [address] Dr. Delta Herrera (RBC) [Mass/Vol]35.1 g/mPBhidkd31.9-35.2The [place] [facility] HospitalComment on above:Performed By: #### CBC #### [facility] [address] [place] [address] Dr. Delta Rob (RBC) [Entitic vol]78.0 fLCritically low81.0-99.0The [place] [facility] HospitalComment on above:Performed By: #### CBC #### [facility] [address] [place] [address] Dr. Delta Smith #0.5 103/ulNormal0.3-0.8The [place] [facility] HospitalComment on above:Performed By: #### CBC #### [facility] [address] [place] [address] Dr. Delta Keysocytes/100 WBC (Bld)7.0 %Normal1.7-12.0The [place] [facility] Comment on above:Performed By: #### CBC #### [facility] [address] [place] [address] Dr. Delta Gillis #3.0 103/ulNormal1.4-6.5The [place] [facility] HospitalComment on above:Performed By: #### CBC #### [facility] [address] [place] [address] Dr. Yilan ChangNeutrophils/100 WBC (Bld)42.5 %Critically low43.0-75.0The [place] [facility] HospitalComment on above:Performed By: #### CBC #### [facility] [address] [place] [address] Dr. Delta Moreland mean volume (Bld) [Entitic vol]8.8 fLCritically low 9.5-13.5The [place] [facility] HospitalComment on above:Performed By: #### CBC #### [facility] [address] [place] [address] Dr. Delta HerreraT323 103/cwPgravd282-391Ltg [place] [facility] HospitalComment on above: Performed By: #### CBC #### [facility] [address] [place] [address] Dr. Delta FlynnRBC4.78 106/ulNormal4.20-5.40The [place] [facility] HospitalComment on above:Performed By: #### CBC #### [facility] [address] [place] [address] Dr. Delta FlynnWBC7.0 103/ulNormal4.0-11.0The [place] [facility] HospitalComment on above: Performed By: #### CBC #### [facility] [address] [place] [address] Dr. Delta Moody T3on 67-49-1129ZMPH T33.03 pg/mlLNormal2.18-3.98The [place] [facility] HospitalCommclaren bay region on above:Performed By: #### TSH, FT3, CMP #### [facility] [address] [place] [address] Dr. Delta Moody T4on 76-64-3751Itig T4 [Mass/Vol]1.27 ng/dLNormal0.76-1.46 The [place] [facility] HospitalComment on above:Performed By: #### FT4 #### [facility] [address] [place] [address] Dr. Delta FlynnPROF 14(COMP METB)on 17-39-1221Kwdgzum [Mass/Vol]3.3 g/dL Critically low3.4-5.0The [place] [facility] HospitalComment on above:Performed By: #### TSH, FT3, CMP #### [facility] [address] [place] [address] Dr. Delta FlynnAlbumin/Globulin [Mass ratio]0.8 {ratio}NormalThe [place] [facility] HospitalComment on above:Performed By: #### TSH, FT3, CMP #### [facility] [address] [place] [address] Dr. Delta Mock [Catalytic activity/Vol]77 U/PElaers08-591Lab [place] [facility] HospitalComment on above:Performed By: #### TSH, FT3, CMP #### [facility] [address] [place] [address] Dr. Delta Rojas [Catalytic activity/Vol]35 U/MPtitbj32-16Per [place] [facility] HospitalComment on above:Performed By: #### TSH, FT3, CMP #### [facility] [address] [place] [address] Dr. eDlta Keene gap [Moles/Vol]9.0 mmol/LNormalThe [place] [facility] HospitalComment on above:Performed By: #### TSH, FT3, CMP #### [facility] [address] [place] [address] Dr. Delta Mcclain [Catalytic activity/Vol]29 U/GEensrl51-40Amr Pomerene Hospitalment on above:Performed By: #### TSH, FT3, CMP #### [facility] [address] [place] [address] Dr. Delta FlynnBilirubin [Mass/Vol]0.4 mg/dLNormal0.2-1.0The [facility] Comment on above:Performed By: #### TSH, FT3, CMP #### [facility] [address] [place] [address] Dr. Delta FlynnCalcium [Mass/Vol]9.0 mg/dLNormal8.5-10.1[facility] Comment on above:Performed By: #### TSH, FT3, CMP #### [facility] [address] [place] [address] Dr. Delta FlynnChloride [Moles/Vol]106 mmol/WWsqwkt34-641QwoVeterans Health Administration Comment on above:Performed By: #### TSH, FT3, CMP #### [facility] [address] [place] [address] [address] Delta FlynnCO2 [Moles/Vol]31.8 mmol/MZmycwx46.0-32.0The [facility] Comment on above:Performed By: #### TSH, FT3, CMP #### [facility] [address] [address] [address] Delta FlynnCreatinine [Mass/Vol]0.62 mg/dLNormal0.55-1.02The [place] [facility] HospitalComment on above:Performed By: #### TSH, FT3, CMP #### [facility] [address] [place] [address] Dr. Sorenson ChangEGFR-AF PBJGIIXB88 mL/min/1.81f3Dsxfjp>=60The [facility] Comment on above:Performed By: #### TSH, FT3, CMP #### [facility] [address] [address] [address] Sorenson ChangEGFR-NON AF OUVBLKPK90 mL/min/1.02i2Qjtjdj>=60The [place] [facility] HospitalComment on above:Performed By: #### TSH, FT3, CMP #### [facility] [address] [place] [address] Dr. Delta FlynnGlobulin (S) [Mass/Vol]4.0 g/dLNormalThe [place] [facility] HospitalComment on above:Performed By: #### TSH, FT3, CMP #### [facility] [address] [place] [address] Dr. Delta FlynnGlucose [Mass/Vol]108 mg/dLCritically pozy07-134Pta [place] [facility] HospitalComment on above:Performed By: #### TSH, FT3, CMP #### [facility] [address] [place] [address] Dr. Delta FlynnPotassium [Moles/Vol]3.8 mmol/LNormal3.5-5.1The [facility] Comment on above:Performed By: #### TSH, FT3, CMP #### [facility] [address] [place] [address] Dr. Delta FlynnProtein [Mass/Vol]7.3 g/dLNormal6.4-8.2The [facility] Comment on above:Performed By: #### TSH, FT3, CMP #### [facility] [address] [place] [address] Dr. Delta FlynnSodium [Moles/Vol]143 mmol/FEbihro714-255Sbu [facility] Comment on above:Performed By: #### TSH, FT3, CMP #### [facility] [address] [place] [address] Dr. Delta FlynnUrea nitrogen [Mass/Vol]10.0 mg/dLNormal7.0-18.0[facility] Health AdministrationComment on above:Performed By: #### TSH, FT3, CMP #### [facility] [address] [place] [address] Dr. Delta Zaldivar nitrogen/Creatinine [Mass ratio]16.1 mg/mgNormalThe [place] [facility] HospitalComment on above:Performed By: #### TSH, FT3, CMP #### [facility] [address] [place] [address] Dr. Delta Gilbert 66-44-7137HDQ3.120 uIU/mLNormal0.358-3.740[facility] Health AdministrationComment on above:Performed By: #### TSH, FT3, CMP #### [facility] [address] [place] [address] Dr. Delta Harpd-19 PCR ([facility])on 13-04-5116MIMV-CoV-2 (COVID-19) RNA SIMBA+probe Ql (Unsp spec)Not detectedNormalNOT DETECTEDThe [facility] Comment on above:Result Comment: When diagnostic testing is negative, the [...] for this test is supported by the [place] of Health and Human Service's declaration that circumstances exist to justify the emergency use of in vitro diagnostics for the detection and/or diagnosis of the virus that causes COVID-19. This EUA will remain in effect for the duration of the COVID-19 declaration justifying emergency of IVDs, unless it is terminated or revoked by the FDA (after which the test may no longer be used).Performed By: #### CVDTBH #### [facility] [address] [address] [address] Delta Nam-19 PCR (CVDTB)on 42-12-6847AAXB-CoV-2 (COVID-19) RNA SIMBA+probe Ql (Unsp spec)DetectedCritically abnormalNOT DETECTEDThe [place] [facility] HospitalComment on above:Result Comment: This test is not yet approved or cleared by the [place] FDA. When there are no FDA-approved or cleared tests available, and other criteria are met, FDA can make tests available under an emergency access mechanism called an Emergency Use Authorization (EUA). The EUA for this test is supported by the [place] of Health and Human Service's declaration that circumstances exist to justify the emergency use of in vitro diagnostics for the detection and/or diagnosis of the virusthat causes COVID-19. This EUA will remain in effect for the duration of the COVID-19 declaration ju stifying emergency of IVDs, unless it is terminated or revoked by the FDA (after which the test mayno longer be used).Performed By: #### CVDTBH #### [facility] [address] [place], [place] [address] Dr. Delta Nam-19 PCR (CVDTBH)on 07-45-4230OZEU-CoV-2 (COVID-19) RNA SIMBA+probe Ql (Unsp spec)Not detectedNormalNOT DETECTEDThe [facility] Comment on above:Result Comment: When diagnostic testing is negative, the [...] for this test is supported by the [place] of Health and Human Service's declaration that circumstances exist to justify the emergency use of in vitro diagnostics for the detection and/or diagnosis of the virus that causes COVID-19. This EUA will remain in effect for the duration of the COVID-19 declaration justifying emergency of IVDs, unless it is terminated or revoked by the FDA (after which the test may no longer be used).Performed By: #### CVDTBH #### [place] [address] Dr. Delta Arroyo AND B AGon 07-56-0712BLCRMNGKMIUWGFairfield Medical Center on above:Result Comment: Negative for Flu A protein angiten. Infection due to Flu A cannot be ruled out. FluA angiten in the sample may be below the detection limit of the test.Performed By: #### INFLUAB #### [facility] [address] [place] [address] Dr. Delta KaufmanNEGLENNY [facility] on above: Result Comment: Negative for Flu B protein antigen. Infection due to Flu B cannot be ruled out. FluB antigen in the sample may be below the detection limit of the test.Performed By: #### INFLUAB #### [facility] [address] [place] [address] Dr. Delta Arroyo AGNegativeNormalNEGATIVE SEE COMMENTThe [facility] on above:Performed By: #### INFLUAB #### [facility] [address] [place] [address] Dr. Detla Petty AGNegativeNormalNEGATIVE SEE COMMENTThe [facility] on above:Performed By: #### INFLUAB #### [facility] [address] [place] [address] Dr. Delta FlynnINTERNAL CONTROLSWithin Normal LimitsNormalWithin Normal Limits The [place] [facility] HospitalComment on above:Performed By: #### INFLUAB #### [facility] [address] [place] [address] [address] Delta Houston [id number] Visit (GSPSMN) KARLA PEREZ ([id number]) 1990 F Date Time Provider Department 08/08/21 9:00 AM GILA LOPEZ GSPSMN During your visit today, we recorded the following information about you: Gila Lopez PSYD 08/08/2021 9:30 AM Signed [facility] Progress Note 08/08/2021 Billing code: John Patient did not attend, cancel, or reschedule this in person appointment. Gila Lopez Psy.D. Clinical Health Psychologist Referring Provider: GEORGE GOMEZ [[id number]] Allergies As of Date: 08/08/2021 (Not on File) Date Reviewed: 08/08/2021 Reviewed by: Gila Lopez PSYD - Fully Assessed Reason for Visit: No Show [1558] Primary Visit Diagnosis:NO SHOW Problem List As Of Date: 08/08/2021 (None) Encounter Status:Closed by GILA LOPEZ [facility] 08/08/21[facility] Vital Signs Date TimeVital SignValuePerforming GyfctgqzvIxvgtzst51-02-3128 19:57-0500BMI (Body Mass Index)57.9 kg/m2Max [facility]01-11-2020 19:57-0500Body Xbwceicbxbx14.1 [degF][facility] 10-25-2019 19:57-0500Body jfnoxm480.85 kgMax [facility] Lyh15-44-3233 19:57-0500BP Ducexbpak08 mm[Hg]Max [facility]01-11-2020 19:57-0500BP Usztrnaa992 mm[Hg][facility] Chs60-91-5635 19:57-7296Toueho605.1 cmMax [facility]01-11-2020 19:57-0500Pulse (Heart Rate)101 /minMax [facility] Qdf80-35-6534 19:57-0500Pulse Icxxdhgj54 %Max [facility] Llv83-79-7389 19:57-0500Respiratory Rate24 /minMax [facility] Encounters Encounter DateEncounter TypeCare ProviderFacilityStart: 08-11-2025 End: 89-45-5698zvlafxskxmIQOVCA A LEHMANNFacility:[facility] [place]Start: 08-06-2025 End: 00-56-0632muxftzntmwQCKWJS A LEHMANNFacility:FTMCStart: 09-29-2024 End: 64-34-4838jkomjqqebrOHTCPC A LEHMANNFacility:FT FM [place]vueStart: 09-29-2024 End: 34-23-4694Ovigubq encounter procedureSHELLY A OSBALDO [phone]-[facility] Start: 05-02-2024 End: 89-50-2927Svy Drop offSHELLY A OSBALDO [facility] Start: 05-02-2024 End: 87-36-9195tyqbocjfkhBBXSUI A LEHMANNFacility:FTMCStart: 04-28-2024 End: 57-48-5583lkrmqhokliYKCGEQ A LEHMANNFacility:FT FM [place]vueStart: 04-15-2024 End: 92-18-9767dcavzcnkndIJLLVZ A LEHMANNFacility:FT FM [place]vueStart: 04-09-2024 End: 64-36-4275Lam-admission assessmentSHELLY A OSBALDO [facility] Start: 03-27-2024 End: 69-48-5139Cxk Drop offSHELLY Dina OSBALDO [facility] Start: 03-27-2024 End: 57-12-1902wkcydvhfagIFSLGM A LEHMANNFacility:FT FM [place]Start: 03-18-2024 End: 77-52-5065Zbb Drop offSHELLY Dina ERICOSBALDO [facility] Start: 03-18-2024 End: 44-61-8973mxpzwpjgyqRPXPLD A LEHMANNFacility:FTMCStart: 12-04-2023 End: 11-68-3694gzbckmkqieFedyin E. RossFacility:FT FM BellevueStart: 11-17-2022 End: 26-79-2220xwymxcirrzKX KIM E KNIGHTFacility:H9Kdvob: 06-01-2022 End: 43-10-1263fmaasspfpvGD KIM E KNIGHTFacility:R7Phitx: 05-27-2022 End: 71-40-7910wrzeafpcprBK KIM E KNIGHTFacility:Z2Dwidi: 12-18-2021 End: 12-36-3783buxzgpgdakNJ KIM E KNIGHTFacility:B4Rtcif: 10-25-2019 End: 47-46-6413Dpfdjyrkk department patient visitMax [facility] Procedures DateProcedureProcedure DetailPerforming ClinicianNone (qualifier value)ANN MARIE ROBLERO Plan of Treatment DateCare ActivityDetailAuthorPatient EducationOtitis Media (ED)[facility] CtrPatient referralMarymount Hospital Ctr Immunizations Immunization DateImmunizationNotesCare VzckoudzVdqkrxrx06-09-3387mqjrqfusj virus vaccine, unspecified formulationSHELRAGHAV ROBLERO [phone]-KshopTrihealth [facility] 14-97-1273ftanrkpiv A vaccine, adult Chepe ROBLERO [phone]-PljpiTrihealth Bethesda [facility] Hospital Payers DatePayer CategoryPayerPolicy [id number] [id number] 2.16840.1.511249.3.57[id number] 2.16840.1.359399.3.57[id number] 2.16840.1.841492.3.57[id number] 2.16.840.1.452851.3.57[id number] 2.16.840.1.116182.3.57[id number] 2.16.840.1.169238.3.57[id number] 2.16840.1.652281.3.57[id number] 2.16840.1.368999.3.57[id number] 2.16840.1.173957.3.57[id number] 2.16.840.1.364154.3.57[id number] 2.16840.1.516458.3.57[id number] 2.16.840.1.535227.3.57[id number] 2.16.840.1.754374.3.57[id number] 2.16.840.1.583555.3.57[id number] 2.16.840.1.447714.3.57[id number] 2.16.840.1.173382.3.57[id number] 2.16.840.1.892627.3.579.[id number] 7j2d7900-95tr-[id number]-vjkWklb Pay [id number] Social History DateTypeDetailFacilityStart: 10-25-2019 End: 07-52-8995Cloyyhw smoking status NHISNever smoked tobacco (finding)[facility] BellevueStart: 89-07-9953Rgb Assigned At [facility] CtrTobacco smoking statusNeUniversity [facility] BellevueSex Assigned At [facility] Goals DatePatient GoalDesired Activity/State Clinical Notes 08-08-2021 to 08-11-2025 Note Date & IoupElntYfqaqipm03-48-3158 NotePatient Education Gastroenterology Constipation, Adult Constipation is when a person has trouble pooping (having a bowel movement). When you have this condition, you may poop fewer than 3 times a week. Your poop (stool) may also be dry, hard, or bigger than normal. Follow these instructions at home: Eating and drinking ??? Eat foods that have a lot of fiber, such as: ? Fresh fruits and vegetables. ? Whole grains. ? Beans. ??? Eat less of foods that are low in fiber and high in fat and sugar, such as: ? German fries. ? Hamburgers. ? Cookies. ? Candy. ? Soda. ??? Drink enough fluid to keep your pee (urine) pale yellow. General instructions ??? Exercise regularly or as told by your doctor. Try to do 150 minutes of exercise each week. ??? Go to the restroom when you feel like you need to poop. Do not hold it in. ??? Take xyml-yjh-yrianwr and prescription medicines only as told by your doctor. These include anyfiber supplements. ??? When you poop: ? Do deep breathing while relaxing your lower belly (abdomen). ? Relax your pelvic floor. The pelvic floor is a group of muscles that support the rectum, bladder,and intestines (as well as the uterus in women). ??? Watch your condition for any changes. Tell your doctor if you notice any. ??? Keep all follow-up visits as told by your doctor. This is important. Contact a doctor if: ??? You have pain that gets worse. ??? You have a fever. ??? You have not pooped for 4 days. ??? You vomit. ??? You are not hungry. ??? You lose weight. ??? You are bleeding from the opening of the butt (anus). ??? You have thin, pencil-like poop. Get help right away if: ??? You have a fever, and your symptoms suddenly get worse. ??? You leak poop or have blood in your poop. ??? Your belly feels hard or bigger than normal (bloated). ??? You have very bad belly pain. ??? You feel dizzy or you faint. Summary ??? Constipation is when a person poops fewer than 3 times a week, has trouble pooping, or has poopthat is dry, hard, or bigger than normal. ??? Eat foods that have a lot of fiber. ??? Drink enough fluid to keep your pee (urine) pale yellow. ??? Take uagm-ltw-dztmqjj and prescription medicines only as told by your doctor. These include anyfiber supplements. This information is not intended to replace advice given to you by your health care provider. Make sure you discuss any questions you have with your health care provider. Document Revised: 08/15/2023 Document Reviewed: 08/15/2023 [employer] Patient Education ? 2023 [employer].[facility] 08-06-2025 NotePatient Education Obstetrics and Gynecology Dysmenorrhea Dysmenorrhea means cramps during your period (menstrual period) that cause pain in your lower belly(abdomen). The pain is caused by the tightening (rene) of the muscles of the womb (uterus). The pain may be mild or very bad. Primary dysmenorrhea is cramps that last a couple of days when a woman starts having periods or soon after. As a woman gets older or has a baby, the cramps will usually lessen or disappear. Secondarydysmenorrhea begins later in life and is caused by other problems. What are the causes? This condition may be caused by problems with the: ??? Tissue that lines the womb. This tissue may grow: ? Outside of the womb. ? Into the macdonald of the womb. ??? Blood vessels in the area between your hip bones (pelvis). ??? Tissue in the lower part of the womb (cervix), including growths (polyps). ??? Muscles that hold up the womb. ??? Bladder. ??? Bowels. It can also be caused by cancer. Other causes include: ??? A very tipped womb. ??? The lower part of the womb having a small opening. ??? Tumors in the womb that are not cancer. ??? Pelvic inflammatory disease (PID). ??? Scars from surgeries you have had. ??? A cyst in the ovaries. ??? An IUD (intrauterine device). What increases the risk? Being younger than age 30. ??? Having started puberty early. ??? Having irregular bleeding or heavy bleeding. ??? Never having given . ??? Having a family history of period cramps. ??? Smoking or using products with nicotine. ??? Having a high body weight or a low body weight. What are the signs or symptoms? Cramps and pain in the lower belly or lower back. ??? A feeling of fullness in the lower belly. ??? Periods lasting for longer than 7 days. ??? Headaches. ??? Bloating. ??? Tiredness (fatigue). ??? Feeling like you may vomit (nauseous) or vomiting. ??? Watery poop (diarrhea) or loose poop (stool). ??? Sweating. ??? Dizziness. How is this treated? Treatment depends on the cause of the cramps. Treatment may include medicines, such as: ??? Medicines for pain. ??? Medicines for bleeding. ??? Body chemical (hormone) replacement therapy. ? Shots (injections) to stop the menstrual period. ? control pills. ? An IUD. ??? NSAIDs, such as ibuprofen. Other treatments may include: ??? Surgeries. ??? Procedures. ??? Nerve stimulation. ??? Doing exercises. ??? Yoga and alternative treatments. Work with your doctor to find what treatments are best for you. Follow these instructions at home: Helping pain and cramping ??? If told, put heat on your lower back or belly when you have pain or cramps. Do this as often astold by your doctor. Use the heat source that your doctor recommends, such as a moist heat pack or a heating pad. ? Place a towel between your skin and the heat. ? Leave the heat on for 20?30 minutes. ? Take off the heat if your skin turns bright red. This is very important. If you cannot feel pain,heat, or cold, you have a greater risk of getting burned. ??? Do not sleep with a heating pad. ??? Exercise. Walking, swimming, or biking can help take away cramps. ??? Massage your lower back or belly. This may help lessen pain. General instructions ??? Take hygw-bwp-xezxxbn and prescription medicines only as told by your doctor. ??? Ask your doctor if you should avoid driving or using machines while you are taking your medicine. ??? Avoid alcohol and caffeine during and right before your period. These can make cramps worse. ??? Do not smoke or use any products that contain nicotine or tobacco. If you need help quitting, ask your doctor. ??? Keep all follow-up visits. Contact a doctor if: ??? You have pain that gets worse. ??? You have pain that does not get better with medicine. ??? You have pain during sex. ??? You feel like you may vomit or you vomit during your period and medicine does not help. Get help right away if: ??? You faint. Summary ??? Dysmenorrhea means painful cramps during your period. ??? Put heat on your lower back or belly when you have pain or cramps. ??? Do exercises like walking, swimming, or biking to help with cramps. ??? Contact a doctor if you have pain during sex. This information is not intended to replace advice given to you by your health care provider. Make sure you discuss any questions you have with your health care provider. Document Revised: 05/18/2021 Document Reviewed: 05/18/2021 [employer] Patient Education ? 2023 [employer].[facility] 05-02-2024 NotePatient Education Nephrology Potassium Content of Foods Potassium is a mineral found in many foods and drinks. It can affect how the heart works, affect blood pressure, and keep fluids and electrolytes balanced in the body. It is important not to have toomuch potassium (hyperkalemia) or too little potassium (hypokalemia) [...] mg of potassium per serving. Fruits ? [place] ? 1 medium (130 g) has 230 [...] shelf life, and food preparation. Contact a dietitianfor more information. What foods are low in [...] on your age and any existing medical conditionsyou may have. ? Your health care provider or dietitian may recommend an amount of potassium that you should have each day. This information is not intended to replace advice given to you by your health care provider. Make sure you discuss any questions you have with your health care provider. Document Revised: 07/04/2022 Document Reviewed: 06/15/2022 [employer] Patient Education ? 2022 [employer].[facility] 08-08-2021 NoteHNO ID: [id number] Author: China Clark RD Service: ? Author Type: Registered Dietitian Type: Progress Notes Filed: 08/08/2021 1:04 PM Note Text: Patient did not show for nutrition appointment. China Clark MS,RD,[facility]10-25-2021 Note Education (AMANDA) KARLA PEREZ ([id number]) 1990 F Date Time Provider Department 08/08/21 12:30 PM CHINA CLARK Reason for Visit: No Show [1558] Progress Notes: China Clark RD 08/08/2021 1:04 PM Signed Patient did not show for nutrition appointment. China Clark MS,RD,CSOWM,LD Primary Visit Diagnosis:NO SHOW During your [...] capsule Encounter Status:Closed by CHINA CLARK on 08/08/21[facility]10-25-2021 NoteHNO ID: [id number] Author: Gila Lopez PSYD Service: ? Author Type: Physician Type: Progress Notes Filed: 08/08/2021 9:30 AM Note Text: [facility] Progress Note 08/08/2021 Billing code: John Patient did not attend, cancel, or reschedule this in person appointment. Gila Lopez Psy.D. Clinical Health PsychologistU[facility] HospitalEvaluation + Plan note Future Appointments Appointment Date:04/15/2024 02:00:00 PM Scheduled Provider:ANN MARIE ROBLERO CNP [facility] Future Appointments Appointment Date:04/15/2024 01:40:00 PM Scheduled Provider:ANN MARIE ROBLERO CNP Location:[facility]ment [facility]: [facility] Future Appointments Appointment Date:05/05/2024 08:15:00 PM Scheduled Provider: Location:.SLEEP LAB_ Appointment Type:DEAN Sleep Study PSG () [facility] Narrative No data available for this section [facility] Discharge instructions No data available for this section [facility] No data available for this section [facility] Advance Directives No Advanced Directives Records Found Advance Directive Response Recorded Date/ Time Advance Directives No April 15 2:41pm Chief Complaint and Reason for Visit [...] section and content) DATE CREATED AUTHOR 11/21/2021 [facility] DATE CREATED AUTHOR AUTHOR'S ORGANIZ ATION 11/19/2022 [facility] DATE CREATED AUTHOR AUTHOR'S ORGANIZ ATION 03/20/2024 [facility] DATE CREATED AUTHOR AUTHOR'S ORGANIZ ATION 11/13/2024 [facility] DATE CREATED AUTHOR AUTHOR'S ORGANIZ ATION 12/04/2024 [facility] DATE CREATED AUTHOR AUTHOR'S ORGANIZ ATION 03/24/2025 [facility] DATE CREATED AUTHOR AUTHOR'S ORGANIZ ATION 08/09/2025 [facility] DATE CREATED AUTHOR AUTHOR'S ORGANIZ ATION 08/13/2025 [facility] DATE CREATED AUTHOR AUTHOR'S ORGANRTOY ATION 08/15/2025 [facility] Patient Care team informatio n (unrecognized section and content) Personnel Name: Kael Chan MD Address: Address: [address] [place] [address] Personnel Name: Kael Chan MD Address: Address: [address] [place] [address] No data available for this section Personnel Name: ANN MARIE ROBLERO CNP Address: Address: [address] [place] [address] Personnel Name: ANN MARIE ROBLERO CNP Address: Address: [address] [place] [address] Personnel Name: OSBALDOANN MARIE RIOS CNP Dina Address: Address: [address] [place] [address] FOR RECORDS PERTAINING TO PATIENTS WHO ARE [...] BE BASED ON THE PRIMARY CLINICAL RECORDS. [employer] [facility] provides no warranty or guarantee of the accuracy or completeness of information in this document.
[2025-10-14] MEDS: KETOROLAC TROMETHAMINE 60 MG/2 ML VIAL IM (10:10)
--- NOTE | 2025-10-14 10:31 | ED.FEMALEGU1 ---
HPI - Female Genitourinary General Chief complaint: Vaginal Bleeding Stated complaint: VAGINAL BLEEDING Time Seen by Provider: 10/14/25 09:33 Source: patient Mode of arrival: walk-in Limitations: no limitations History of Present Illness HPI Narrative: The patient have a history of full cystic ovarian disease presented to the ER after she just had her menstruation 2 weeks ago and started having menstruation again now, the patient mentioned that initially she was concerned that she could be , but she also mentioned that she has been changing her pad almost every hour and she is worried about the bleeding there is no abdominal pain at the moment no nausea vomiting dizziness or any other concerns This started yesterday Related Data Home Medications ?Medication ?Instructions ?Recorded ?Confirmed buprenorphine 8 mg-naloxone 2 mg 1 film buccal TID 10/27/23 10/14/25 sublingual film hydrochlorothiazide 25 mg tablet 12.5 mg PO DAILY 10/14/25 10/14/25 Previous Rx's ?Medication ?Instructions ?Recorded dicyclomine 20 mg tablet 20 mg PO TID PRN abdominal pain 10/14/25 #10 tabs ibuprofen 800 mg tablet 800 mg PO TID #9 tabs 10/14/25 Allergies Allergy/AdvReac Type Severity Reaction Status Date / Time No Known Drug Allergies Allergy Verified 10/14/25 09:27 Review of Systems ROS Status of ROS 10 or more systems reviewed and unremarkable except as noted in history and below [facility] Social History Smoking status: Former smoker Little interest or pleasure in doing things: not at all Feeling down, depressed, or hopeless: not at all Exam Narrative Exam Narrative: Nurses notes and vital signs reviewed and patient is not hypoxic. General: Well-appearing and in no apparent distress. Skin: Warm, dry, no pallor noted. No rash. Head: Normocephalic, atraumatic. Cardiovascular: Regular Rate and Rhythm without murmur, gallop or rub. Respiratory: No accessory muscle use or respiratory distress. Lungs are clear to auscultation, no wheezing, rales or rhonchi Chest Wall: no tenderness Back: No midline thoracic or lumbar vertebral tenderness. No CVA tenderness Musculoskeletal: normal ROM, no calf or popliteal tenderness, no lower extremity edema/swelling GI: Abdomen is soft, non-distended. Normal bowel sounds. No masses appreciated. No tenderness to palpation. No rebound, guarding, or rigidity noted. Neurological: A&O x4. No cranial nerve dysfunction observed. No truncal ataxia. Moves all extremities. Sensation intact. Psychiatric: Cooperative and interactive. Normal mood and affect. Constitutional Vital Signs, click to edit/add: Last Vital Signs Temp 98.1 F 10/14/25 09:27 Pulse 77 10/14/25 09:27 Resp 18 10/14/25 09:27 BP 143/72 H 10/14/25 09:27 Pulse Ox 97 10/14/25 09:27 O2 Del Method Room Air 10/14/25 09:27 Course Vital Signs Vital signs: Vital Signs Temperature 98.1 F 10/14/25 09:27 Pulse Rate 77 10/14/25 09:27 Respiratory Rate 18 10/14/25 09:27 Blood Pressure 143/72 H 10/14/25 09:27 Pulse Oximetry 97 10/14/25 09:27 Oxygen Delivery Method Room Air 10/14/25 09:27 Temperature 98.1 F 10/14/25 09:27 Pulse Rate 77 10/14/25 09:27 Respiratory Rate 18 10/14/25 09:27 Blood Pressure 143/72 H 10/14/25 09:27 Pulse Oximetry 97 10/14/25 09:27 Oxygen Delivery Method Room Air 10/14/25 09:27 MDM - Female Genitourinary MDM Narrative Medical decision making narrative: Patient test is negative Right now the patient presentation is mostly second to menorrhagia she was started initially on high dose anti-inflammatory medication as main treatment plan for now and right now she does not have any symptoms of significant blood loss but she was instructed about the importance of monitoring for any symptoms of dizziness shortness of breath or any continuation of the symptoms past 24 hours the patient to come back to the ER. She will monitor for improvement in the next 24 hours in case of no improvement she is to come back to the ER I did explain to her that the second line would be mostly hormonal treatment and she understand that mostly starting anti-inflammatory course will be usually more safe specially with the patient history of blood clot in her mother a while ago Patient referred to [facility] as outpatient The patient to follow-up with the primary care within 2 to 3 days and to come back to the ER in case of any worsening of the current symptoms or any new symptoms or concerns Lab Data Labs: Lab Results 10/14/25 Range/Units 09:30 Urine HCG, Qual Negative (NEGATIVE) Discharge Plan Discharge Chief Complaint: Vaginal Bleeding Clinical Impression: Menorrhagia Patient Disposition: Home, Self-Care Time of Disposition Decision: 10:31 Condition: Good Mode of Transportation: Private Vehicle Prescriptions / Home Meds: New ibuprofen 800 mg tablet 800 mg PO TID Qty: 9 0RF Rx Instructions: Please take your medication with food not on empty stomach dicyclomine 20 mg tablet 20 mg PO TID PRN (Reason: abdominal pain) Qty: 10 0RF No Action buprenorphine-naloxone 8-2 mg film 1 film buccal TID hydrochlorothiazide 25 mg tablet 12.5 mg PO DAILY Print Language: Ivorian Instructions: Menorrhagia (ED) Referrals: Damien Pan DO [Physician, [facility]ICER] - 1 week Physician,Non-Staff, [Primary Care Provider] - 1 week Discharge Date/Time: 10/14/25 10:49
== END 2025-10-14 10:49 | disposition home or self-care (01) ==
PROVIDERS: Emergency Provider Emergency Medicine
DX: N92.0 Excessive and frequent menstruation with regular cycle (principal); Z87.891 Personal history of nicotine dependence
CPT/HCPCS: 84703; 96372; 99284; J1885